=== PATIENT | male | born 1940 | race Caucasian/White ===

== ENCOUNTER 2017-12-07 02:09 | Inpatient (IN) | payer MEDICARE, BC ==
[2017-12-07] MEDS ORDERED: IBUPROFEN 600 MG TAB PO STA (02:17)
--- NOTE | 2017-12-07 02:30 | ED ---
General Adult HPI - General Stated complaint: Neuro Deficits Time Seen by Provider: 12/07/17 02:10 Source: RN notes reviewed - History of Present Illness Initial comments: This is a 76-year-old male presents emergency Department as a transfer from [facility]. She was sent to us because he came in with some slurred speech which started earlier in the day but it resolved while he was in the emergency department and they were concerned that he had a TIA and wanted him to be seen by a neurologist. He also had a fever for 100.7 there and they could not find source of his fever he had no complaints of a cough he denies any chest pain or palpitations. Patient denies any shortness of breath. Patient denies any abdominal pain patient denies nausea vomiting or diarrhea. Patient denies any sore throat. Patient denies headache patient denies numbness weakness. Patient states currently he feels good without complaints at this time. Family is not here to give any other history patient is able to answer all questions appropriately. Patient states she has had a previous stroke and he has some right sided residual weakness in the arm and leg - Related Data Home Medications Medication Instructions Recorded Confirmed Aspirin 325 mg PO DAILY 12/07/17 12/07/17 Celecoxib [CeleBREX] 200 mg PO DAILY 12/07/17 12/07/17 Cyanocobalamin [Vitamin B-12] 500 mcg PO DAILY 12/07/17 12/07/17 Folic Acid 0.4 mg PO DAILY 12/07/17 12/07/17 Glimepiride [Amaryl] 4 mg PO AC-BRKFST 12/07/17 12/07/17 Levothyroxine Sodium [Synthroid] 150 mcg PO DAILY 12/07/17 12/07/17 Multivitamin [Men's Multi-Vitamin] 1 each PO DAILY 12/07/17 12/07/17 Rutin/Quercetin/Bioflav/Bilber 1 each PO DAILY 12/07/17 12/07/17 [Bilberry Extract] metFORMIN HCL [Glucophage] 500 mg PO TID 12/07/17 12/07/17 traMADol HCL [Ultram] 50 mg PO Q6HR PRN 12/07/17 12/07/17 Allergies Allergy/AdvReac Type Severity Reaction Status Date / Time codeine Allergy Unknown Verified 12/07/17 02:19 Review of Systems ROS Statement: Those systems with pertinent positive or pertinent negative responses have been documented in the HPI. ROS Other: All systems not noted in ROS Statement are negative. General Exam - General Exam Comments Initial Comments: GENERAL: Patient is well-developed and well-nourished. Patient is nontoxic and well- hydrated and is in no acute distress. ENT: Neck is soft and supple. No significant lymphadenopathy is noted. Oropharynx is clear. Moist mucous membranes. Neck has full range of motion without eliciting any pain. EYES: The sclera were anicteric and conjunctiva were pink and moist. Extraocular movements were intact and pupils were equal round and reactive to light. Eyelids were unremarkable. PULMONARY: Unlabored respirations. Good breath sounds bilaterally. No audible rales rhonchi or wheezing was noted. CARDIOVASCULAR: There is a regular rate and rhythm without any murmurs gallops or rubs. ABDOMEN: Soft and nontender with normal bowel sounds. No palpable organomegaly was noted. There is no palpable pulsatile mass. SKIN: Skin is clear with no lesions or rashes and otherwise unremarkable. NEUROLOGIC: Patient is alert and oriented x3. Cranial nerves II through XII are grossly intact. Motor and sensory are also intact. Normal speech, volume and content. Symmetrical smile. . MUSCULOSKELETAL: Normal extremities with adequate strength and full range of motion. LYMPHATICS: No significant lymphadenopathy is noted PSYCHIATRIC: Normal psychiatric evaluation. Normal interpersonal interactions appears functionally intact in deals appropriately with others. No signs of depression. No signs of anxiety. Course Vital Signs 12/07/17 02:17 Temperature 98.8 F Pulse Rate 109 H Respiratory 20 Rate Blood Pressure 152/82 O2 Sat by Pulse 96 Oximetry Medical Decision Making - Medical Decision Making EKG shows sinus tachycardia at 108 bpm AK interval 266 dresses 92 QT interval 344 QTC is 460. Patient's EKG shows no ST segment elevation or depression or T wave abnormalities are noted. Influenza came back negative. Patient remained asymptomatic. I admitted the patient for TIA and spoke with Dr. Ramirez he agreed to admit the patient I wrote admitting orders I consult the neurology - Lab Data Lab Results 12/07/17 Range/Units 02:15 Influenza Type A RNA Not Detected (Not Detectd) Influenza Type B (PCR) Not Detected (Not Detectd) Disposition Clinical Impression: TIA (transient ischemic attack), Febrile illness Disposition: ADMITTED IP TO THIS HOSP Referrals: Julia Brasher DO [Primary Care Provider] - 1-2 days Time of Disposition: 03:12
[2017-12-07] MEDS ORDERED: ASPIRIN 325 MG TAB PO STA (03:13)
[2017-12-07 05:11] VITALS: BMI 26.9
[2017-12-07 05:40] LABS: Glucose,Whole Blood 122 mg/dL (75-99)
--- NOTE | 2017-12-07 11:08 | US ---
EXAMINATION TYPE: US carotid duplex BILAT DATE OF EXAM: 12/07/2017 COMPARISON: NONE CLINICAL HISTORY: Stenosis. EXAM MEASUREMENTS: RIGHT: Peak Systolic Velocity (PSV) cm/sec ----- Right CCA: 98.3 ----- Right ICA: 82.0 ----- Right ECA: 100.9 ICA/CCA ratio: 0.8 RIGHT: End Diastole cm/sec ----- Right CCA: 27.4 ----- Right ICA: 22.6 ----- Right ECA: 16.6 LEFT: Peak Systolic Velocity (PSV) cm/sec ----- Left CCA: 77.5 ----- Left ICA: 109.1 ----- Left ECA: 88.9 ICA/CCA ratio: 1.4 LEFT: End Diastole cm/sec ----- Left CCA: 18.0 ----- Left ICA: 33.5 ----- Left ECA: 13.4 VERTEBRALS (direction of flow): Right Vertebral: Antegrade Left Vertebral: Antegrade Rhythm: Arrhythmia Prominent lymph nodes noted on right. No significant stenosis seen. IMPRESSION: Atheromatous plaquing present bilaterally greater on the left than the right. Significan t flow-limiting stenosis is not present. Criteria for Assigning % of Stenosis / Diameter reduction (Estimation based on the indirect measurements of the internal carotid artery velocities (ICA PSV). 1. Normal (no stenosis)=ICA PSV < 125 cm/s: ratio < 2.0: ICA EDV<40 cm/s. 2. Less than 50% stenosis=ICA PSV < 125 cm/s: ratio < 2.0: ICA EDV<40 cm/s. 3. 50 to 69% stenosis=ICA PSV of 125 to 230 cm/s: ration 2.0 ? 4.0: ICA EDV 40-100 cm/s. 4. Greater than 70% stenosis to near occlusion= ICA PSV > 230 cm/s: ratio > 4.0: ICA EDV > 100 cm/s. 5. Near occlusion= ICA PSV velocities may be low or undetectable: variable ratio and ICA EDV. 6. Total occlusion=unable to detect flow.
[2017-12-07 11:57] LABS: Glucose,Whole Blood 122 mg/dL (75-99)
--- NOTE | 2017-12-07 12:39 | P.CNNES ---
History of Present Illness Consult date: 12/07/17 Reason for Consult: Patient admitted with slurred speech and TIA. History of Present Illness: This patient is a 76-year-old right-handed white male who was in his usual state of health until yesterday. According to his who was at bedside she noted that he was having difficulty getting his words out yesterday evening. Apparently he had some slurring of his speech and just had word finding difficulties. This had started early in the morning according to the with no clear time of onset. According to the the symptoms did seem to worsen as the day went on. Later in the evening he was still having great difficulty getting his words out. also stated that he was having weakness in both of his legs. He does have a history of a old stroke which she suffered 14 years ago. This stroke left him with residual right-sided weakness. He apparently ambulates at home with the use of a cane. According to the yesterday evening at about 8 PM he was unable to stand and ambulate due to bilateral leg weakness. Given his history of old stroke the was concerned and took him to the emergency room at [facility]. He underwent a computed tomography scan of the brain there which was reported to show mild atrophy with no acute intracranial abnormalities. There was evidence of right maxillary sinusitis. The family requested that the patient be transferred to [facility] for further stroke evaluation. The patient has been taking aspirin 325 mg daily on a regular basis since his stroke 14 years ago. His speech has improved since admission to the hospital yesterday evening. We did review the CAT scan report from the outside hospital which again failed to reveal any evidence of acute stroke. The patient was transferred to [facility] he was seen in the ER by Dr. Lincoln this morning. He did have a fever yesterday evening which has subsequently resolved. He was checked for influenza which came back negative. The patient is afebrile this morning. He is examined today in his room with his at bedside. The clearly states that in the morning when he awoke she noticed that he was having the speech problems. The symptoms worsened and finally by 8 PM yesterday they went to the local emergency room at [facility]. The patient follows with his primary care physician Dr. Brasher every 4-6 months. Apparently his last visit went well with no major changes. The patient has been doing better since admission to the hospital and has been able to get up and ambulate without any difficulty with his leg strength. Patient's clinical history suggests possibility of TIA. We have recommended the patient undergo a complete stroke evaluation. His case was discussed at length with the patient and his at bedside. All of their questions were answered. They are aware of his guarded condition. Review of Systems Constitutional: Denies chills, Denies fever Eyes: denies blurred vision, denies pain Ears, nose, mouth and throat: Denies headache, Denies sore throat Cardiovascular: Denies chest pain, Denies shortness of breath Respiratory: Denies cough Gastrointestinal: Denies abdominal pain, Denies diarrhea, Denies nausea, Denies vomiting Musculoskeletal: Denies myalgias Integumentary: Denies pruritus, Denies rash Neurological: Reports aphasia, Reports change in mentation, Reports change in speech, Reports gait dysfunction, Reports motor disturbance, Denies numbness, Denies weakness Psychiatric: Denies anxiety, Denies depression Endocrine: Denies fatigue, Denies weight change Past Medical History Past Medical History: Diabetes Mellitus, Thyroid Disorder Additional Past Medical History / Comment(s): stroke History of Any Multi-Drug Resistant Organisms: None Reported Past Surgical History: Unable to Obtain Past Anesthesia/Blood Transfusion Reactions: No Reported Reaction Past Psychological History: No Psychological Hx Reported Smoking Status: Never smoker Past Alcohol Use History: None Reported Past Drug Use History: None Reported - Past Family History Brother(s) Additional Family Medical History / Comment(s): Parkinson's Medications and Allergies Home Medications Medication Instructions Recorded Confirmed Type Aspirin 325 mg PO DAILY 12/07/17 12/07/17 History Bilberry 1000mg 1,000 mg PO DAILY 12/07/17 12/07/17 History Celecoxib [CeleBREX] 200 mg PO DAILY PRN 12/07/17 12/07/17 History Cyanocobalamin [Vitamin B-12] 500 mcg PO DAILY 12/07/17 12/07/17 History Folic Acid 0.4 mg PO DAILY 12/07/17 12/07/17 History Glimepiride [Amaryl] 4 mg PO AC-BRKFST 12/07/17 12/07/17 History Levothyroxine Sodium [Synthroid] 150 mcg PO DAILY 12/07/17 12/07/17 History Multivitamin [Men's Multi-Vitamin] 1 tab PO DAILY 12/07/17 12/07/17 History Pricklypear 250 mg PO BID 12/07/17 12/07/17 History metFORMIN HCL [Glucophage] 500 mg PO TID 12/07/17 12/07/17 History traMADol HCL [Ultram] 50 mg PO Q6HR PRN 12/07/17 12/07/17 History Allergies Allergy/AdvReac Type Severity Reaction Status Date / Time codeine Allergy Unknown Verified 12/07/17 12:15 Physical Examination - Vital Signs Vital Signs: Vital Signs Temp Pulse Pulse Resp BP BP Pulse Ox 12/07/17 08:14 96.9 F L 97 16 145/72 96 12/07/17 08:00 96.9 F L 97 16 145/75 95 12/07/17 06:14 97 16 147/74 93 L 12/07/17 04:57 97.0 F L 95 14 145/70 98 12/07/17 03:53 98 16 135/72 94 L 12/07/17 02:17 98.8 F 109 H 20 152/82 96 Intake and Output 12/06/17 12/07/17 12/07/17 22:59 06:59 14:59 Intake Total 0 Output Total 300 Balance 0 -300 Intake: Oral 0 Output: Urine 300 Other: # Voids 0 Weight 80.3 kg - Constitutional General appearance: average body habitus, cooperative - EENT EENT: PERRL, mucous membranes moist - Respiratory Respiratory: lungs clear, normal breath sounds - Cardiovascular Cardiovascular: regular rate, normal S1, normal S2 Extremities: no peripheral edema bilaterally - Gastrointestinal Gastrointestinal: normoactive bowel sounds - Integumentary Integumentary: normal - Neurologic Cranial nerve examination: EOMI, V1/V2/V3 grossly intact, face symmetric, tongue midline, intact gag reflex, intact corneal reflex, normal palatal elevation Speech examination: intact Sensorimotor examination: intact Motor examination - right side: 3/5: biceps, triceps, wrist flexion, wrist extension, foreign exchange services manager, 4/5: hip flexors, knee extensors, dorsiflexion, toe extension ( EHL), plantarflexion Motor examination - left side: 4/5: biceps, triceps, wrist flexion, wrist extension, foreign exchange services manager, hip flexors, knee extensors, dorsiflexion, toe extension (EHL) , plantarflexion Detailed sensory examination: intact Reflex and gait examination: intact Reflexes: 1+: ankle, bicep, knee, tricep - Musculoskeletal Musculoskeletal: no pain - Psychiatric Psychiatric: mood/affect appropriate, cooperative Results - Laboratory Findings Abnormal Lab Findings: Abnormal Labs 12/07/17 05:38 POC Glucose (mg/dL) 122 H Assessment and Plan (1) TIA (transient ischemic attack) Current Visit: Yes Status: Acute Code(s): G45.9 - TRANSIENT CEREBRAL ISCHEMIC ATTACK, UNSPECIFIED SNOMED Code(s): 302162391 (2) History of stroke Current Visit: Yes Status: Acute Code(s): Z86.73 - PRSNL HX OF TIA (TIA), AND CEREB INFRC W/O RESID DEFICITS SNOMED Code(s): 943690249 (3) Diabetes mellitus Current Visit: Yes Status: Acute Code(s): E11.9 - TYPE 2 DIABETES MELLITUS WITHOUT COMPLICATIONS SNOMED Code(s): 69388647 (4) Febrile illness Current Visit: Yes Status: Acute Code(s): R50.9 - FEVER, UNSPECIFIED SNOMED Code(s): 572234739 Plan: This patient is a 76-year-old male who yesterday morning awoke with some speech impairment. According to his who provided the medical history he was having word finding difficulties. This persisted throughout the day yesterday morning and by 8 PM he was also having weakness in both of his legs. He was taken to the emergency room at [facility] at about 8 PM. He underwent a computed tomography scan of the brain which revealed mild atrophy with no acute intracranial abnormalities detected. Patient was transferred to [facility] this morning for further stroke evaluation. Patient has a history of having suffered a stroke 14 years ago. He has been left with residual right-sided hemiparesis. Yesterday evening the states he was very weak in both of his legs and could not ambulate. Those symptoms have subsequently resolved and he is doing much better today. We have recommended that he undergo a complete stroke evaluation. We will obtain an MRI of the brain for further assessment. We will obtain a carotid ultrasound as well. We are waiting further assessment from speech therapy regarding this recent episode as well. We will also obtain PT/ OT evaluation. He should be maintained on aspirin daily for secondary stroke prevention. He is afebrile today and has no evidence of ongoing underlying sepsis at this time. Case was discussed at length with the patient and his at bedside. All of their questions were answered. The is aware of his guarded condition. We will continue close neurological follow-up of this patient during this admission. Time with Patient: Greater than 30
[2017-12-07] MEDS ORDERED: traMADol 50 MG TAB PO PRN (12:54)
[2017-12-07] MEDS ORDERED: ONDANSETRON 4 MG/2 ML VIAL IVP PRN (12:55)
[2017-12-07] MEDS ORDERED: metFORMIN 500 MG TAB PO SCH (13:00)
--- NOTE | 2017-12-07 13:47 | P.HPIM ---
History of Present Illness H&P Date: 12/07/17 Chief Complaint: Slurred speech This is a 76-year-old gentleman with past medical history noted below significant for prior stroke who presented to an outside emergency room with generalized weakness and slurred speech. Apparently his symptoms started all of a sudden. He went to [facility] where he underwent a computed tomography scan of the brain showing no acute findings or evidence of acute stroke. Patient was started on aspirin and was transferred to our hospital for further evaluation. Apparently his symptoms lasted for approximately 8 hours and resolved upon transfer to our hospital. He is back to his normal self right now. He was seen and evaluated by neurology. They scheduled for an MRI of the brain later today. Review of Systems Review of system: 14 points review of systems were obtained and were negative except to what were mentioned in the HPI. Past Medical History Past Medical History: Diabetes Mellitus, Thyroid Disorder Additional Past Medical History / Comment(s): stroke History of Any Multi-Drug Resistant Organisms: None Reported Past Surgical History: Unable to Obtain Past Anesthesia/Blood Transfusion Reactions: No Reported Reaction Past Psychological History: No Psychological Hx Reported Smoking Status: Never smoker Past Alcohol Use History: None Reported Past Drug Use History: None Reported - Past Family History Brother(s) Additional Family Medical History / Comment(s): Parkinson's Medications and Allergies Home Medications Medication Instructions Recorded Confirmed Type Aspirin 325 mg PO DAILY 12/07/17 12/07/17 History Bilberry 1000mg 1,000 mg PO DAILY 12/07/17 12/07/17 History Celecoxib [CeleBREX] 200 mg PO DAILY PRN 12/07/17 12/07/17 History Cyanocobalamin [Vitamin B-12] 500 mcg PO DAILY 12/07/17 12/07/17 History Folic Acid 0.4 mg PO DAILY 12/07/17 12/07/17 History Glimepiride [Amaryl] 4 mg PO AC-BRKFST 12/07/17 12/07/17 History Levothyroxine Sodium [Synthroid] 150 mcg PO DAILY 12/07/17 12/07/17 History Multivitamin [Men's Multi-Vitamin] 1 tab PO DAILY 12/07/17 12/07/17 History Pricklypear 250 mg PO BID 12/07/17 12/07/17 History metFORMIN HCL [Glucophage] 500 mg PO TID 12/07/17 12/07/17 History traMADol HCL [Ultram] 50 mg PO Q6HR PRN 12/07/17 12/07/17 History Allergies Allergy/AdvReac Type Severity Reaction Status Date / Time codeine Allergy Unknown Verified 12/07/17 12:15 Physical Exam Vitals: Vital Signs Temp Pulse Pulse Resp BP BP Pulse Ox 12/07/17 10:14 96.9 F L 97 16 146/76 96 12/07/17 08:14 96.9 F L 97 16 145/72 96 12/07/17 08:00 96.9 F L 97 16 145/75 95 12/07/17 06:14 97 16 147/74 93 L 12/07/17 04:57 97.0 F L 95 14 145/70 98 12/07/17 03:53 98 16 135/72 94 L 12/07/17 02:17 98.8 F 109 H 20 152/82 96 Intake and Output 12/06/17 12/07/17 12/07/17 22:59 06:59 14:59 Intake Total 0 Output Total 300 Balance 0 -300 Intake: Oral 0 Output: Urine 300 Other: # Voids 0 Weight 80.3 kg General: The patient is awake and alert, in no distress Eye: there is normal conjunctiva bilaterally. Neck: The neck is supple, there is no JVD. Cardiovascular: Normal S1-S2, no S3-S4, no murmurs. Respiratory: Lungs clear to auscultation bilaterally Gastrointestinal: Abdomen is soft, nontender Musculoskeletal: There is no pedal edema. Neurological:. Speech is normal. Skin: Skin is warm and dry Results Labs: Abnormal Lab Results - Last 24 Hours (Table) 12/07/17 12/07/17 Range/Units 05:38 11:49 POC Glucose (mg/dL) 122 H 122 H (75-99) mg/dL Thrombosis Risk Factor Assmnt - Choose All That Apply Any of the Below Risk Factors Present?: Yes Other Risk Factors: Yes Each Risk Factor Represents 3 Points: Age 75 years or older Thrombosis Risk Factor Assessment Total Risk Factor Score: 3 Thrombosis Risk Factor Assessment Level: Moderate Risk Assessment and Plan Assessment: 1. TIA with transient episode of slurred speech: Computed tomography scan of the brain at the outside facility showed no acute findings. Patient is scheduled for MRI today. Carotid Doppler showed no significant hemodynamic stenosis. Echocardiogram of the heart ordered. 2. History of prior stroke with residual right-sided weakness, maintained on full dose aspirin daily 3. Type 2 diabetes mellitus: I would check A1c 4. Hypothyroidism maintained on levothyroxine Today, I reviewed his medication list and lab work results. Continue current regimen. PT/OT/speech pathology consultation. Appreciate neurology recommendations. at bedside. Patient was updated about his current condition.
[2017-12-07 16:59] LABS: Glucose,Whole Blood 211 mg/dL (75-99)
--- NOTE | 2017-12-07 17:54 | MR ---
EXAMINATION TYPE: MR brain wo con DATE OF EXAM: 12/07/2017 COMPARISON: NONE HISTORY: Patient with Left Hemipsheric TIA and jonelle leg weak CONTRAST: Performed utilizing 0 mL intravenous Gadavist gadolinium contrast. TECHNIQUE: Multiplanar, multiecho imaging on a 3.0 Tori magnet is performed through the brain. Stud y is performed within 24 hours of arrival to this hospital. The craniovertebral junction is normal. The pituitary is normal. Diffusion-weighted imaging is performed. No abnormal hyperintensity is present to suggest an acute i ntracranial infarct or acute ischemic change. Ventricles and sulci are prominent for the patient age. Left vertebral artery is dominant. There are normal vascular flow voids within the visualized intracr anial cerebral vasculature. There are some scattered periventricular and subcortical white matter aide nges. Some white matter changes also present within the brainstem. Findings are nonspecific but could be related to microvascular ischemic changes. Acute changes are not identified. IMPRESSIONS: 1. Age-related atrophy with chronic appearing white matter ischemic changes.
[2017-12-07] MEDS: metFORMIN 500 MG TAB PO SCH (20:37)
[2017-12-07] MEDS: HEPARIN SODIUM,PORCINE 5,000 UNIT/ML 1 ML VIAL SQ SCH (20:37)
[2017-12-07 20:55] LABS: Glucose,Whole Blood 214 mg/dL (75-99)
[2017-12-08] MEDS: ASPIRIN 325 MG TAB PO SCH ×2 (06:06→09:09)
[2017-12-08] MEDS: metFORMIN 500 MG TAB PO SCH ×3 (06:06→19:24)
[2017-12-08] MEDS: GLIMEPIRIDE 4 MG TAB PO SCH (06:06)
[2017-12-08 06:18] LABS: Glucose,Whole Blood 129 mg/dL (75-99)
[2017-12-08 06:25] LABS: Basophils # (A) 0.1 k/uL (0-0.2); Basophils % (A) 1 %; Eosinophils # (A) 0.2 k/uL (0-0.7); Eosinophils % (A) 2 %; HCT 44.4 % (39.0-53.0); HGB 14.3 gm/dL (13.0-17.5); Lymphocytes # (A) 2.2 k/uL (1.0-4.8); Lymphocytes % (A) 19 %; MCH 29.2 pg (25.0-35.0); MCHC 32.3 g/dL (31.0-37.0); MCV 90.6 fL (80.0-100.0); Mean Platelet Volume 7.2; Monocytes % (A) 9 %; Neutrophils % (A) 68 %; Platelet Count 279 k/uL (150-450); RDW 12.6 % (11.5-15.5); WBC 11.8 k/uL (3.8-10.6)
[2017-12-08] MEDS ORDERED: LEVOTHYROXINE 75 MCG TAB PO SCH (06:30)
[2017-12-08 06:38] LABS: ALT 39 U/L (21-72); AST 32 U/L (17-59); Albumin 3.7 g/dL (3.5-5.0); Alkaline Phosphatase 76 U/L (38-126); Anion Gap 12 mmol/L; Blood Urea Nitrogen 15 mg/dL (9-20); Calcium 9.3 mg/dL (8.4-10.2); Carbon Dioxide 25 mmol/L (22-30); Chloride 102 mmol/L (98-107); Cholesterol 126 mg/dL (<200); Glucose 131 mg/dL (74-99); HDL Cholesterol 36 mg/dL (40-60); LDL Cholesterol,Calculated 73 mg/dL (0-99); Potassium 4.1 mmol/L (3.5-5.1); Sodium 139 mmol/L (137-145); Total Bilirubin 1.8 mg/dL (0.2-1.3); Total Protein 6.6 g/dL (6.3-8.2); Triglycerides 83 mg/dL (<150)
[2017-12-08 07:41] LABS: T4, Free (Free Thyroxine) 2.53 ng/dL (0.78-2.19)
[2017-12-08] MEDS: HEPARIN SODIUM,PORCINE 5,000 UNIT/ML 1 ML VIAL SQ SCH ×2 (09:09→20:58)
[2017-12-08 11:15] LABS: Appearance,Urine Clear (Clear); Bilirubin,Urine Negative (Negative); Blood,Urine Negative (Negative); Color,Urine Yellow; Glucose,Urine (UA) Negative (Negative); Ketones,Urine 1+ (Negative); Leukocyte Esterase,Urine Negative (Negative); PH, Urine 5.5 (5.0-8.0); Protein,Urine Trace (Negative)
[2017-12-08 11:31] LABS: Glucose,Whole Blood 113 mg/dL (75-99)
[2017-12-08] MEDS: FOLIC ACID 1 MG TAB PO SCH (12:24)
--- NOTE | 2017-12-08 13:38 | P.PN ---
Subjective Well today. He is complaining of urinary frequency. Urinalysis was unremarkable. Objective - Vital Signs Vital signs: Vital Signs Temp 97.6 F 12/08/17 12:00 Pulse 96 12/08/17 12:00 Resp 16 12/08/17 12:00 BP 129/69 12/08/17 12:00 Pulse Ox 97 12/08/17 12:00 Intake & Output 12/07/17 12/08/17 12/08/17 18:59 06:59 18:59 Intake Total 480 200 Output Total 300 500 600 Balance 180 -500 -400 Weight 74 kg Intake: Oral 480 200 Output: Urine 300 500 600 Other: # Voids 2 2 # Bowel Movements 2 - Exam General: The patient is awake and alert, in no distress Eye: there is normal conjunctiva bilaterally. Neck: The neck is supple, there is no JVD. Cardiovascular: Normal S1-S2, no S3-S4, no murmurs. Respiratory: Lungs clear to auscultation bilaterally Gastrointestinal: Abdomen is soft, nontender Musculoskeletal: There is no pedal edema. Neurological:. Speech is normal. Skin: Skin is warm and dry - Labs CBC & Chem 7: 12/08/17 05:59 12/08/17 05:59 Labs: Abnormal Lab Results - Last 24 Hours (Table) 12/07/17 12/07/17 12/08/17 Range/Units 16:51 20:54 05:59 WBC (3.8-10.6) k/uL Neutrophils # (1.3-7.7) k/uL Glucose 131 H (74-99) mg/dL POC Glucose (mg/dL) 211 H 214 H (75-99) mg/dL Total Bilirubin 1.8 H (0.2-1.3) mg/dL HDL Cholesterol 36 L (40-60) mg/dL TSH <0.015 L (0.465-4.680) mIU/L Free T4 2.53 H (0.78-2.19) ng/dL Urine Protein (Negative) Urine Ketones (Negative) 12/08/17 12/08/17 12/08/17 Range/Units 05:59 06:15 11:00 WBC 11.8 H (3.8-10.6) k/uL Neutrophils # 8.0 H (1.3-7.7) k/uL Glucose (74-99) mg/dL POC Glucose (mg/dL) 129 H (75-99) mg/dL Total Bilirubin (0.2-1.3) mg/dL HDL Cholesterol (40-60) mg/dL TSH (0.465-4.680) mIU/L Free T4 (0.78-2.19) ng/dL Urine Protein Trace H (Negative) Urine Ketones 1+ H (Negative) 12/08/17 Range/Units 11:29 WBC (3.8-10.6) k/uL Neutrophils # (1.3-7.7) k/uL Glucose (74-99) mg/dL POC Glucose (mg/dL) 113 H (75-99) mg/dL Total Bilirubin (0.2-1.3) mg/dL HDL Cholesterol (40-60) mg/dL TSH (0.465-4.680) mIU/L Free T4 (0.78-2.19) ng/dL Urine Protein (Negative) Urine Ketones (Negative) Assessment and Plan Assessment: 1. TIA with transient episode of slurred speech: MRI of the brain showed age- related atrophy with no acute findings. Computed tomography scan of the brain at the outside facility showed no acute findings. Carotid Doppler showed no significant hemodynamic stenosis. Echocardiogram of the heart ordered And pending 2. History of prior stroke with residual right-sided weakness, maintained on full dose aspirin daily 3. Type 2 diabetes mellitus: I would check A1c 4. Hypothyroidism maintained on levothyroxine. TSH level was significantly depressed. I will lower the dose to 112 g Today, I reviewed his medication list and lab work results. Continue current regimen. PT/OT/speech pathology consultation. Appreciate neurology recommendations. at bedside. Patient was updated about his current condition. Patient with urinary frequency. UA unremarkable. We'll check postvoid residual.
--- NOTE | 2017-12-08 15:40 | P.PN ---
Subjective Progress Note Date: 12/08/17 This patient is a 76-year-old male who was admitted to Hospital with symptoms of word finding difficulties and slurred speech. He has a history of having suffered a stroke in the past. He was admitted to hospital for a complete stroke evaluation. Patient was able to complete MRI of the brain yesterday which was reviewed and reveals only age-related atrophy and chronic-appearing white matter ischemic changes. There was no evidence of acute stroke. Diffusion-weighted imaging was negative. We reviewed the results of the MRI today with the patient. He has had no further episodes of speech impairment since admission to the hospital. He is currently taking is aspirin daily for secondary stroke prevention. Patient has undergone carotid Doppler ultrasound which revealed no significant hemodynamic stenosis. Echocardiogram of the heart is pending. Patient is had no focal weakness. As mentioned his speech is remained very clear since admission to the hospital. We did once again review the results of the MRI with the patient and his who is at bedside. We're waiting for his echocardiogram study to be completed. Neurologically he remains very much intact. 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 Once again we did review the MRI results in detail with the patient and his today at bedside. Hopefully the patient may be considered for discharge home tomorrow. We will continue close neurological follow-up for the patient during this admission. Objective - Vital Signs Vital signs: Vital Signs Temp 97.6 F 12/08/17 12:00 Pulse 96 12/08/17 12:00 Resp 16 12/08/17 12:00 BP 129/69 12/08/17 12:00 Pulse Ox 97 12/08/17 12:00 Intake & Output 12/07/17 12/08/17 12/08/17 18:59 06:59 18:59 Intake Total 480 400 Output Total 300 500 600 Balance 180 -500 -200 Weight 74 kg Intake: Oral 480 400 Output: Urine 300 500 600 Other: # Voids 2 2 # Bowel Movements 2 - Exam Physical examination: PHYSICAL EXAMINATION: Patient is resting comfortably in bed. VITAL SIGNS: Blood pressure is [129/69]. Heart rate is [95]. Respiration is [16] . Temperature is [97.7]. HEENT: Head is atraumatic, neck is supple, there were no carotid bruits. CHEST: Lungs are clear to auscultation and percussion. CARDIAC: S1, S2 normal rate and rhythm. There is no murmur. ABDOMEN: Soft and nontender. Bowel sounds are present. EXTREMITIES: There is no pedal edema. Peripheral pulses are present. Neurological examination: Patient has a nonfocal neurological examination today. Neurological exam reveals old right-sided hemiparesis. - Labs CBC & Chem 7: 12/08/17 05:59 12/08/17 05:59 Labs: Abnormal Lab Results - Last 24 Hours (Table) 12/07/17 12/07/17 12/08/17 Range/Units 16:51 20:54 05:59 WBC (3.8-10.6) k/uL Neutrophils # (1.3-7.7) k/uL Glucose 131 H (74-99) mg/dL POC Glucose (mg/dL) 211 H 214 H (75-99) mg/dL Total Bilirubin 1.8 H (0.2-1.3) mg/dL HDL Cholesterol 36 L (40-60) mg/dL TSH <0.015 L (0.465-4.680) mIU/L Free T4 2.53 H (0.78-2.19) ng/dL Urine Protein (Negative) Urine Ketones (Negative) 12/08/17 12/08/17 12/08/17 Range/Units 05:59 06:15 11:00 WBC 11.8 H (3.8-10.6) k/uL Neutrophils # 8.0 H (1.3-7.7) k/uL Glucose (74-99) mg/dL POC Glucose (mg/dL) 129 H (75-99) mg/dL Total Bilirubin (0.2-1.3) mg/dL HDL Cholesterol (40-60) mg/dL TSH (0.465-4.680) mIU/L Free T4 (0.78-2.19) ng/dL Urine Protein Trace H (Negative) Urine Ketones 1+ H (Negative) 12/08/17 Range/Units 11:29 WBC (3.8-10.6) k/uL Neutrophils # (1.3-7.7) k/uL Glucose (74-99) mg/dL POC Glucose (mg/dL) 113 H (75-99) mg/dL Total Bilirubin (0.2-1.3) mg/dL HDL Cholesterol (40-60) mg/dL TSH (0.465-4.680) mIU/L Free T4 (0.78-2.19) ng/dL Urine Protein (Negative) Urine Ketones (Negative) Assessment and Plan (1) TIA (transient ischemic attack) Current Visit: Yes Status: Acute Code(s): G45.9 - TRANSIENT CEREBRAL ISCHEMIC ATTACK, UNSPECIFIED SNOMED Code(s): 674086971 (2) History of stroke Current Visit: Yes Status: Acute Code(s): Z86.73 - PRSNL HX OF TIA (TIA), AND CEREB INFRC W/O RESID DEFICITS SNOMED Code(s): 802726655 (3) Diabetes mellitus Current Visit: Yes Status: Acute Code(s): E11.9 - TYPE 2 DIABETES MELLITUS WITHOUT COMPLICATIONS SNOMED Code(s): 36867909 (4) Febrile illness Current Visit: Yes Status: Acute Code(s): R50.9 - FEVER, UNSPECIFIED SNOMED Code(s): 989988661 Plan: This patient is a 76-year-old male who is being evaluated for recent episode of slurred speech and TIA. Patient underwent MRI of the brain and the results which are noted above. We discussed the results today with the patient and his in detail. There is no evidence of any acute stroke. Carotid Doppler study failed to reveal any significant carotid artery stenosis. Echocardiogram of the heart is pending today. Hopefully this may be completed tomorrow at which time he may be considered for discharge home. He does have evidence of old right-sided hemiparesis from previous stroke. He is to continue on aspirin daily for secondary stroke prevention. We will continue close neurological follow-up for the patient. Depending on his echocardiogram results he may be considered for discharge home tomorrow. We will continue close neurological follow-up of this patient during this admission.
[2017-12-08 16:16] LABS: Glucose,Whole Blood 110 mg/dL (75-99)
[2017-12-08 17:56] LABS: Hemoglobin A1C 6.6 % (4.0-6.0)
[2017-12-08 21:14] LABS: Glucose,Whole Blood 125 mg/dL (75-99)
[2017-12-09 05:23] VITALS: RESP 16
[2017-12-09 05:55] LABS: Glucose,Whole Blood 97 mg/dL (75-99)
[2017-12-09] MEDS: GLIMEPIRIDE 4 MG TAB PO SCH (06:21)
[2017-12-09] MEDS: metFORMIN 500 MG TAB PO SCH ×2 (06:21→12:26)
[2017-12-09] MEDS ORDERED: LEVOTHYROXINE 112 MCG TAB PO SCH (06:30)
[2017-12-09 06:31] LABS: Basophils # (A) 0.1 k/uL (0-0.2); Basophils % (A) 1 %; Eosinophils # (A) 0.6 k/uL (0-0.7); Eosinophils % (A) 5 %; HGB 14.8 gm/dL (13.0-17.5); Lymphocytes # (A) 2.5 k/uL (1.0-4.8); Lymphocytes % (A) 22 %; MCHC 32.9 g/dL (31.0-37.0); Monocytes # (A) 0.8 k/uL (0-1.0); Monocytes % (A) 8 %; Neutrophils # (A) 6.9 k/uL (1.3-7.7); Neutrophils % (A) 62 %; Platelet Count 308 k/uL (150-450); RBC 4.95 m/uL (4.30-5.90); RDW 12.6 % (11.5-15.5); WBC 11.2 k/uL (3.8-10.6)
[2017-12-09 06:47] LABS: ALT 43 U/L (21-72); AST 36 U/L (17-59); Albumin 3.6 g/dL (3.5-5.0); Alkaline Phosphatase 83 U/L (38-126); Anion Gap 12 mmol/L; Blood Urea Nitrogen 18 mg/dL (9-20); Calcium 9.6 mg/dL (8.4-10.2); Carbon Dioxide 25 mmol/L (22-30); Chloride 102 mmol/L (98-107); Glucose 107 mg/dL (74-99); Potassium 4.4 mmol/L (3.5-5.1); Sodium 139 mmol/L (137-145); Total Bilirubin 1.4 mg/dL (0.2-1.3); Total Protein 6.5 g/dL (6.3-8.2)
[2017-12-09] MEDS: HEPARIN SODIUM,PORCINE 5,000 UNIT/ML 1 ML VIAL SQ SCH (08:09)
[2017-12-09] MEDS: ASPIRIN 325 MG TAB PO SCH (08:09)
[2017-12-09 11:36] LABS: Glucose,Whole Blood 155 mg/dL (75-99)
[2017-12-09] MEDS: FOLIC ACID 1 MG TAB PO SCH (12:26)
[2017-12-09] MEDS ORDERED: NYSTATIN 100,000 UNIT/ML SUSP 500,000 UNIT/5 ML CUP PO SCH (13:00)
--- NOTE | 2017-12-09 14:17 | P.DS ---
Providers Date of admission: 12/07/17 03:14 Expected date of discharge: 12/09/17 Attending physician: David Ramirez Consults: 12/07/17 03:15 Consult Physician Routine Consulting Provider: Harjinder Silva Consult Reason/Comments: TIA Do you want consulting provider notified?: Yes Primary care physician: [facility] Course: Discharge diagnosis 1. TIA with transient episode of slurred speech: MRI of the brain showed age- related atrophy with no acute findings. Computed tomography scan of the brain at the outside facility showed no acute findings. Carotid Doppler showed no significant hemodynamic stenosis. Echocardiogram of the heart ordered And pending 2. History of prior stroke with residual right-sided weakness, maintained on full dose aspirin daily 3. Type 2 diabetes mellitus: A1c 6.6 4. Hypothyroidism maintained on levothyroxine. TSH level was significantly depressed. Synthroid dose was lowered to 112 g daily. 5. Oral thrush likely contributing to patient's leukocytosis which is improving. Continue nystatin swish and swallow Hospital course This is a 76-year-old gentleman with past medical history noted below significant for prior stroke who presented to an outside emergency room with generalized weakness and slurred speech. Apparently his symptoms started all of a sudden. He went to [facility] where he underwent a computed tomography scan of the brain showing no acute findings or evidence of acute stroke. Patient was started on aspirin and was transferred to our hospital for further evaluation. Apparently his symptoms lasted for approximately 8 hours and resolved upon transfer to our hospital. He is back to his normal self right now. He was seen and evaluated by neurology. They scheduled for an MRI of the brain later today. Patient's symptoms resolved after about 8 hours. Speech is normal. He is able to swallow without difficulty. His stroke workup was negative. As stated above patient had an MRI of the brain and computed tomography scan of brain no evidence stroke. Carotid Doppler showed no significant hemodynamic stenosis. Echo results are still pending. Patient is very eager for discharge home. The plan is to discharge patient home. We will follow up on echo results tomorrow and call patient and his with the results. Patient and are agreeable to this. Patient seen by neurology. He is been on a full aspirin daily and will add Lipitor 10 mg at bedtime. Cholesterol panel is 126 LDL 73 and HDL 36 Patient's symptoms have improved he is medically stable for discharge. We'll follow-up with echo results tomorrow Patient will follow-up with neurology and PCP as scheduled I performed an examination of the patient and discussed their management with the physician Textile Science Technician. I have reviewed the Physician Textile Science Technician's notes and agree with the documented findings and plan of care Patient Condition at Discharge: Stable Plan - Discharge Summary Discharge Rx Participant: No New Discharge Prescriptions: New Atorvastatin Calcium [Lipitor] 10 mg PO HS #30 tab Nystatin 100,000 Unit/ml Susp [Mycostatin Oral Susp] 500,000 unit PO QID # 140 ml Continue traMADol HCL [Ultram] 50 mg PO Q6HR PRN PRN Reason: Pain Celecoxib [CeleBREX] 200 mg PO DAILY PRN PRN Reason: Pain Multivitamin [Men's Multi-Vitamin] 1 tab PO DAILY Levothyroxine Sodium [Synthroid] 150 mcg PO DAILY Folic Acid 0.4 mg PO DAILY Cyanocobalamin [Vitamin B-12] 500 mcg PO DAILY metFORMIN HCL [Glucophage] 500 mg PO TID Glimepiride [Amaryl] 4 mg PO AC-BRKFST [place] 250 mg PO BID Bilberry 1000mg 1,000 mg PO DAILY Aspirin 325 mg PO DAILY #30 tab Discharge Medication List Bilberry 1000mg 1,000 mg PO DAILY 12/07/17 [History] Celecoxib [CeleBREX] 200 mg PO DAILY PRN 12/07/17 [History] Cyanocobalamin [Vitamin B-12] 500 mcg PO DAILY 12/07/17 [History] Folic Acid 0.4 mg PO DAILY 12/07/17 [History] Glimepiride [Amaryl] 4 mg PO AC-BRKFST 12/07/17 [History] Levothyroxine Sodium [Synthroid] 150 mcg PO DAILY 12/07/17 [History] Multivitamin [Men's Multi-Vitamin] 1 tab PO DAILY 12/07/17 [History] Pricklypear 250 mg PO BID 12/07/17 [History] metFORMIN HCL [Glucophage] 500 mg PO TID 12/07/17 [History] traMADol HCL [Ultram] 50 mg PO Q6HR PRN 12/07/17 [History] Aspirin 325 mg PO DAILY #30 tab 12/09/17 [Rx] Atorvastatin Calcium [Lipitor] 10 mg PO HS #30 tab 12/09/17 [Rx] Nystatin 100,000 Unit/ml Susp [Mycostatin Oral Susp] 500,000 unit PO QID #140 ml 12/09/17 [Rx] Follow up Appointment(s)/Referral(s): Harjinder Silva MD [STAFF PHYSICIAN] - 12/27/17 10:00 am Julia Brasher DO [Primary Care Provider] - 12/12/17 12:45 pm Patient Instructions/Handouts: Transient Ischemic Attack (DC), Heart Healthy Diet (DC) Activity/Diet/Wound Care/Special Instructions: Daily aspirin to continue per neurology recommendations. Diet: cardiac, diabetic Activity: as tolerated Discharge Disposition: HOME SELF-CARE
[2017-12-09 14:39] VITALS: BP 117/78; PULSE 105; TEMP 97.4
--- NOTE | 2017-12-09 19:13 | ECHOF ---
Referral Reason:TIA MEASUREMENTS -------- HEIGHT: 172.7 cm WEIGHT: 74.4 kg BP: 133/65 RVIDd: 3.3 cm (< 3.3) IVSd: 1.1 cm (0.6 - 1.1) LVIDd: 4.4 cm (3.9 - 5.3) LVPWd: 1.1 cm (0.6 - 1.1) IVSs: 1.7 cm LVIDs: 2.7 cm LVPWs: 1.5 cm LA Diam: 2.9 cm (2.7 - 3.8) LAESV Index (A-L): 19.76 ml/m Ao Diam: 2.9 cm (2.0 - 3.7) AV Cusp: 2.2 cm (1.5 - 2.6) MV EXCURSION: 15.488 mm (> 18.000) MV EF SLOPE: 60 mm/s (70 - 150) EPSS: 1.2 cm MV E Rojelio: 0.63 m/s MV DecT: 243 ms MV A Rojelio: 0.93 m/s MV E/A Ratio: 0.68 RAP: 5.00 mmHg RVSP: 37.39 mmHg FINDINGS -------- Sinus rhythm. This was a technically good study. The left ventricular size is normal. There is borderline concentric left ventricular hypertrophy. Overall left ventricular systolic function is low-normal with, an EF between 50 - 55 %. Apical sep jaspreet LV wall motion is hypokinetic. The right ventricle is mildly enlarged. Normal LA size by volume 22+/-6 ml/m2. The right atrium is normal in size. There is mild aortic valve sclerosis. Mild mitral annular calcification present. Mild tricuspid regurgitation present. There is mild pulmonary hypertension. The right ventricular systolic pressure, as measured by Doppler, is 37.39mmHg. There is no pulmonic regurgitation present. The aortic root size is normal. IVC Not well visulized. There is no pericardial effusion. CONCLUSIONS -------- 1. Sinus rhythm. 2. This was a technically good study. 3. The left ventricular size is normal. 4. There is borderline concentric left ventricular hypertrophy. 5. Overall left ventricular systolic function is low-normal with, an EF between 50 - 55 %. 6. Apical septum LV wall motion is hypokinetic. 7. The right ventricle is mildly enlarged. 8. Normal LA size by volume 22+/-6 ml/m2. 9. The right atrium is normal in size. 10. There is mild aortic valve sclerosis. 11. Mild mitral annular calcification present. 12. Mild tricuspid regurgitation present. 13. There is mild pulmonary hypertension. 14. The right ventricular systolic pressure, as measured by Doppler, is 37.39mmHg. 15. There is no pulmonic regurgitation present. 16. The aortic root size is normal. 17. IVC Not well visulized. 18. There is no pericardial effusion. SNAKER: Vianey López RDCS
== END 2017-12-09 15:10 | disposition home or self-care (01) | DRG 69 ==
LOC: EC 02:09 → 6SEL 03:14
PROVIDERS: ADMIT Internal Medicine; ATTEND Internal Medicine
DX: G45.9 Transient cerebral ischemic attack, unspecified (principal); B37.0 Candidal stomatitis; I69.351 Hemiplegia and hemiparesis following cerebral infarction affecting right dominant side; E11.9 Type 2 diabetes mellitus without complications; D72.829 Elevated white blood cell count, unspecified; E03.9 Hypothyroidism, unspecified; J32.0 Chronic maxillary sinusitis; R35.0 Frequency of micturition; R50.9 Fever, unspecified; Z79.82 Long term (current) use of aspirin; Z79.84 Long term (current) use of oral hypoglycemic drugs; Z79.899 Other long term (current) drug therapy; Z88.5 Allergy status to narcotic agent
CPT/HCPCS: 70551; 80053; 80061; 81003; 83036; 83735; 84439; 84443; 85025; 87502; 93005; 93306; 93880; 99285

== ENCOUNTER → 2018-01-02 | Outpatient (CLI) | payer MEDICARE, BC ==
--- NOTE | 2018-02-05 20:33 | EM ---
EVENT MONITOR 30-DAY EVENT MONITOR: DATE OF STUDY: 01/02/2018 The patient was monitored for 4 weeks. The baseline rhythm appeared to be a sinus mechanism. During the 30-day monitoring, the patient did have multiple episodes of paroxysmal atrial tachycardia. There was no evidence of any advanced AV block seen. There was no evidence of any sinus pause or sinus arrest seen. There was no evidence of sustained ventricular rhythm seen as well. CONCLUSION: 1. This is a 4-week event monitor. 2. The baseline rhythm appeared to be a sinus mechanism. 3. The patient did have multiple episodes of paroxysmal atrial tachycardia. 4. No evidence of any sinus pause or sinus arrest. 5. There was no evidence of any advanced AV block seen. MMODL / IJN: [id number] /
== END | disposition home or self-care (01) ==
LOC: RADECHMAIN 11:47
PROVIDERS: ATTEND Family Medicine
DX: I47.1 Supraventricular tachycardia (principal); R41.0 Disorientation, unspecified; G45.9 Transient cerebral ischemic attack, unspecified; I69.351 Hemiplegia and hemiparesis following cerebral infarction affecting right dominant side
CPT/HCPCS: 93270; 93271

== ENCOUNTER 2022-10-06 08:52 | Observation (INO) | payer MEDICARE, BC ==
[2022-10-06 10:04] LABS: Basophils # (A) 0.1 k/uL (0-0.2); Basophils % (A) 1 %; Eosinophils # (A) 0.3 k/uL (0-0.7); Eosinophils % (A) 3 %; HCT 41.6 % (39.0-53.0); HGB 14.1 gm/dL (13.0-17.5); Lymphocytes # (A) 1.9 k/uL (1.0-4.8); Lymphocytes % (A) 18 %; MCH 31.5 pg (25.0-35.0); MCHC 33.9 g/dL (31.0-37.0); MCV 92.8 fL (80.0-100.0); Monocytes # (A) 0.7 k/uL (0-1.0); Monocytes % (A) 7 %; Neutrophils # (A) 7.2 k/uL (1.3-7.7); Neutrophils % (A) 69 %; Platelet Count 301 k/uL (150-450); RBC 4.49 m/uL (4.30-5.90); WBC 10.3 k/uL (3.8-10.6)
--- NOTE | 2022-10-06 10:10 | XR ---
EXAMINATION TYPE: XR chest 2V DATE OF EXAM: 10/06/2022 9:56 AM COMPARISON: None TECHNIQUE: XR chest 2V Frontal and lateral views of the chest. CLINICAL INDICATION:Male, 81 years old with history of difficulty breathing; FINDINGS: Lungs/Pleura: There is a nodular density in the left lung base only seen on lateral. There is no evid ence of pleural effusion, focal consolidation, or pneumothorax. Pulmonary vascularity: Unremarkable. Heart/mediastinum: Cardiomediastinal silhouette is enlarged and stable. Musculoskeletal: No acute osseous pathology. IMPRESSION: Lower lung opacity seen on lateral only could represent pulmonary nodule consider further evaluation.
[2022-10-06 10:15] LABS: ALT 43 U/L (4-49); AST 45 U/L (17-59); African American GFR (CKD) >90 (>60 ml/min/1.73 sqM); Albumin 3.9 g/dL (3.5-5.0); Alkaline Phosphatase 70 U/L (38-126); Anion Gap 6 mmol/L; Blood Urea Nitrogen 19 mg/dL (9-20); Calcium 8.8 mg/dL (8.4-10.2); Carbon Dioxide 27 mmol/L (22-30); Chloride 108 mmol/L (98-107); Glucose 124 mg/dL (74-99); Non-African American GFR(CKD) >90 (>60 ml/min/1.73 sqM); Potassium 4.5 mmol/L (3.5-5.1); Sodium 141 mmol/L (137-145); Total Bilirubin 1.1 mg/dL (0.2-1.3); Total Protein 6.4 g/dL (6.3-8.2)
[2022-10-06 10:29] LABS: Partial Thromboplastin Time 23.6 sec (22.0-30.0); Prothrombin Time 10.9 sec (9.0-12.0)
--- NOTE | 2022-10-06 11:24 | ED ---
General Adult HPI - General Chief complaint: Shortness of Breath Stated complaint: sob Time Seen by Provider: 10/06/22 09:00 Source: patient, EMS Mode of arrival: EMS Limitations: no limitations - History of Present Illness Initial comments: 81-year-old male who resides at [facility] who presents to the emergency department reporting shortness of breath. He states that he began having chest pain 2 days ago. Feels as if he has a pressure sensation in his heart is racing. There is associated shortness of breath. He went into [facility] where laboratory studies were completed. He was discharged home from the hospital and was told to follow up with his tire bagger, Dr. Buckley. He does have an appointment coming up on Saturday. States that earlier today he began having the same chest pain. It lasted approximately 30 minutes before it resolved on its own. Patient arrives symptom-free here. He denies fevers, chills or cough. He does have a history of coronary artery disease. Had 4 stents placed last year around this time. Has not had any follow-up since. No other alleviating, Perceptin or modifying factors - Related Data Home Medications Medication Instructions Recorded Confirmed Glimepiride [Amaryl] 4 mg PO AC-BRKFST 12/07/17 10/06/22 Multivitamin [Men's Multi-Vitamin] 1 tab PO AC-BRKFST 12/07/17 10/06/22 metFORMIN HCL [Glucophage] 500 mg PO AC-TID 12/07/17 10/06/22 Atorvastatin [Lipitor] 20 mg PO AC-BRKFST 10/06/22 10/06/22 Calcium Carbonate [Calcium] 600 mg PO AC-BRKFST 10/06/22 10/06/22 Levothyroxine Sodium [Synthroid] 112 mcg PO AC-BRKFST 10/06/22 10/06/22 Prostate Supplement 1 cap PO AC-BRKFST 10/06/22 10/06/22 dilTIAZem HCL [dilTIAZem HCL 24Hr 120 mg PO HS 10/06/22 10/06/22 ER (Xr)] Previous Rx's Medication Instructions Recorded Aspirin 81 mg PO DAILY #90 tab 10/09/22 Clopidogrel [Plavix] 75 mg PO AC-BRKFST #90 tab 10/09/22 Allergies Allergy/AdvReac Type Severity Reaction Status Date / Time codeine Allergy Unknown Verified 10/06/22 12:02 Review of Systems ROS Statement: Those systems with pertinent positive or pertinent negative responses have been documented in the HPI. ROS Other: All systems not noted in ROS Statement are negative. Past Medical History Past Medical History: Diabetes Mellitus, Thyroid Disorder Additional Past Medical History / Comment(s): stroke History of Any Multi-Drug Resistant Organisms: None Reported Past Surgical History: Unable to Obtain Past Anesthesia/Blood Transfusion Reactions: No Reported Reaction Past Psychological History: No Psychological Hx Reported Past Alcohol Use History: None Reported Past Drug Use History: None Reported - Past Family History Brother(s) Additional Family Medical History / Comment(s): Parkinson's General Exam Limitations: no limitations General appearance: alert, in no apparent distress Head exam: Present: atraumatic, normocephalic, normal inspection Eye exam: Present: normal appearance, PERRL, EOMI. Absent: scleral icterus, conjunctival injection, periorbital swelling ENT exam: Present: normal exam, mucous membranes moist Neck exam: Present: normal inspection. Absent: tenderness, meningismus, lymphadenopathy Respiratory exam: Present: normal lung sounds bilaterally. Absent: respiratory distress, wheezes, rales, rhonchi, stridor Cardiovascular Exam: Present: regular rate, normal rhythm, normal heart sounds. Absent: systolic murmur, diastolic murmur, rubs, gallop, clicks GI/Abdominal exam: Present: soft, normal bowel sounds. Absent: distended, tenderness, guarding, rebound, rigid Extremities exam: Present: normal inspection, full ROM, normal capillary refill. Absent: tenderness, pedal edema, joint swelling, calf tenderness Back exam: Present: normal inspection Neurological exam: Present: alert, oriented X3, CN II-XII intact Psychiatric exam: Present: normal affect, normal mood Skin exam: Present: warm, dry, intact, normal color. Absent: rash Course Vital Signs 10/06/22 10/06/22 10/06/22 08:57 10:03 11:03 Temperature 97.4 F L Pulse Rate 77 81 84 Respiratory 16 18 14 Rate Blood Pressure 150/82 O2 Sat by Pulse 98 95 94 L Oximetry 10/06/22 13:03 Temperature Pulse Rate 84 Respiratory 18 Rate Blood Pressure 143/77 O2 Sat by Pulse 96 Oximetry EKG Findings - EKG Comments: EKG Findings:: EKG demonstrates normal sinus rhythm with a rate of 75. MT interval 178. QRS 86. QTC 448. No acute ST segment elevations or depressions EKG is interpreted by myself Medical Decision Making - Medical Decision Making Upon arrival patient was placed into room 1. A thorough history and physical exam was performed. IV access is established laboratory studies are conducted. Patient is placed on continuous pulse ox and cardiac monitoring. Twelve-lead E KG was obtained. Patient is pain-free at this time. Laboratory studies reviewed and troponin is negative. Covert and influenza are not detected. Chest x-ray demonstrates a left lower lung opacity seen on lateral view only. This is followed by a CT of the patient's chest which demonstrates prominent vasculature in that area otherwise no acute process. Results are discussed the patient. Due to his recurrent chest pain with history of cardiac disease I did recommend admission for which the patient was agreeable. Spoke with Dr. powers who agreed to admit the patient. Patient taken to the floor in stable condition - Lab Data Result diagrams: 10/07/22 05:23 10/09/22 05:58 Lab Results 10/06/22 10/06/22 10/06/22 Range/Units 09:42 09:42 09:42 WBC 10.3 (3.8-10.6) k/uL RBC 4.49 (4.30-5.90) m/uL Hgb 14.1 (13.0-17.5) gm/dL Hct 41.6 (39.0-53.0) % MCV 92.8 (80.0-100.0) fL MCH 31.5 (25.0-35.0) pg MCHC 33.9 (31.0-37.0) g/dL RDW 13.0 (11.5-15.5) % Plt Count 301 (150-450) k/uL MPV 8.0 Neutrophils % 69 % Lymphocytes % 18 % Monocytes % 7 % Eosinophils % 3 % Basophils % 1 % Neutrophils # 7.2 (1.3-7.7) k/uL Lymphocytes # 1.9 (1.0-4.8) k/uL Monocytes # 0.7 (0-1.0) k/uL Eosinophils # 0.3 (0-0.7) k/uL Basophils # 0.1 (0-0.2) k/uL PT 10.9 (9.0-12.0) sec INR 1.0 (<1.2) APTT 23.6 (22.0-30.0) sec Sodium 141 (137-145) mmol/L Potassium 4.5 (3.5-5.1) mmol/L Chloride 108 H (98-107) mmol/L Carbon Dioxide 27 (22-30) mmol/L Anion Gap 6 mmol/L BUN 19 (9-20) mg/dL Creatinine 0.65 L (0.66-1.25) mg/dL Est GFR (CKD-EPI)AfAm >90 (>60 ml/min/1.73 sqM) Est GFR (CKD-EPI)NonAf >90 (>60 ml/min/1.73 sqM) Glucose 124 H (74-99) mg/dL Plasma Lactic Acid Aleksandr (0.7-2.0) mmol/L Calcium 8.8 (8.4-10.2) mg/dL Total Bilirubin 1.1 (0.2-1.3) mg/dL AST 45 (17-59) U/L ALT 43 (4-49) U/L Alkaline Phosphatase 70 (38-126) U/L Troponin I (0.000-0.034) ng/mL NT-Pro-B Natriuret Pep pg/mL Total Protein 6.4 (6.3-8.2) g/dL Albumin 3.9 (3.5-5.0) g/dL Coronavirus (PCR) (Not Detectd) Influenza Type A RNA (Not Detectd) Influenza Type B (PCR) (Not Detectd) 10/06/22 10/06/22 10/06/22 Range/Units 09:42 09:42 09:42 WBC (3.8-10.6) k/uL RBC (4.30-5.90) m/uL Hgb (13.0-17.5) gm/dL Hct (39.0-53.0) % MCV (80.0-100.0) fL MCH (25.0-35.0) pg MCHC (31.0-37.0) g/dL RDW (11.5-15.5) % Plt Count (150-450) k/uL MPV Neutrophils % % Lymphocytes % % Monocytes % % Eosinophils % % Basophils % % Neutrophils # (1.3-7.7) k/uL Lymphocytes # (1.0-4.8) k/uL Monocytes # (0-1.0) k/uL Eosinophils # (0-0.7) k/uL Basophils # (0-0.2) k/uL PT (9.0-12.0) sec INR (<1.2) APTT (22.0-30.0) sec Sodium (137-145) mmol/L Potassium (3.5-5.1) mmol/L Chloride (98-107) mmol/L Carbon Dioxide (22-30) mmol/L Anion Gap mmol/L BUN (9-20) mg/dL Creatinine (0.66-1.25) mg/dL Est GFR (CKD-EPI)AfAm (>60 ml/min/1.73 sqM) Est GFR (CKD-EPI)NonAf (>60 ml/min/1.73 sqM) Glucose (74-99) mg/dL Plasma Lactic Acid Aleksandr 1.8 (0.7-2.0) mmol/L Calcium (8.4-10.2) mg/dL Total Bilirubin (0.2-1.3) mg/dL AST (17-59) U/L ALT (4-49) U/L Alkaline Phosphatase (38-126) U/L Troponin I <0.012 (0.000-0.034) ng/mL NT-Pro-B Natriuret Pep 107 pg/mL Total Protein (6.3-8.2) g/dL Albumin (3.5-5.0) g/dL Coronavirus (PCR) (Not Detectd) Influenza Type A RNA (Not Detectd) Influenza Type B (PCR) (Not Detectd) 10/06/22 10/06/22 Range/Units 09:42 09:42 WBC (3.8-10.6) k/uL RBC (4.30-5.90) m/uL Hgb (13.0-17.5) gm/dL Hct (39.0-53.0) % MCV (80.0-100.0) fL MCH (25.0-35.0) pg MCHC (31.0-37.0) g/dL RDW (11.5-15.5) % Plt Count (150-450) k/uL MPV Neutrophils % % Lymphocytes % % Monocytes % % Eosinophils % % Basophils % % Neutrophils # (1.3-7.7) k/uL Lymphocytes # (1.0-4.8) k/uL Monocytes # (0-1.0) k/uL Eosinophils # (0-0.7) k/uL Basophils # (0-0.2) k/uL PT (9.0-12.0) sec INR (<1.2) APTT (22.0-30.0) sec Sodium (137-145) mmol/L Potassium (3.5-5.1) mmol/L Chloride (98-107) mmol/L Carbon Dioxide (22-30) mmol/L Anion Gap mmol/L BUN (9-20) mg/dL Creatinine (0.66-1.25) mg/dL Est GFR (CKD-EPI)AfAm (>60 ml/min/1.73 sqM) Est GFR (CKD-EPI)NonAf (>60 ml/min/1.73 sqM) Glucose (74-99) mg/dL Plasma Lactic Acid Aleksandr (0.7-2.0) mmol/L Calcium (8.4-10.2) mg/dL Total Bilirubin (0.2-1.3) mg/dL AST (17-59) U/L ALT (4-49) U/L Alkaline Phosphatase (38-126) U/L Troponin I (0.000-0.034) ng/mL NT-Pro-B Natriuret Pep pg/mL Total Protein (6.3-8.2) g/dL Albumin (3.5-5.0) g/dL Coronavirus (PCR) Not Detected (Not Detectd) Influenza Type A RNA Not Detected (Not Detectd) Influenza Type B (PCR) Not Detected (Not Detectd) Disposition Clinical Impression: Chest pain, ASCVD (arteriosclerotic cardiovascular disease) Disposition: ADMITTED IP TO THIS HOSP Condition: Stable Is patient prescribed a controlled substance at d/c from ED?: No Time of Disposition: 11:32 Decision to Admit Reason: Admit from EC Decision Date: 10/06/22 Decision Time: 11:33
--- NOTE | 2022-10-06 12:10 | CT ---
EXAMINATION TYPE: CT chest wo con CT DLP: 312.9 mGycm, Automated exposure control for dose reduction was used. DATE OF EXAM: 10/06/2022 11:38 AM COMPARISON: Chest radiograph from same day. CLINICAL INDICATION:Male, 81 years old with history of lung mass, TECHNIQUE: Multiple axial images were obtained through the chest. Sagittal and coronal reformats were created for review. Contrast used: none. Oral contrast used: none. FINDINGS: LUNGS/ PLEURA: Opacity on lateral view correlates with atelectasis in a lower lobe pulmonary vasculat ure which are prominent. No focal consolidation, pneumothorax or pleural effusion. Mild emphysema aide nges most proximal lung apices. AIRWAY: Patent and unremarkable. HEART: Heart is mildly enlarged for size with coronary artery atherosclerosis which is moderate to se adelina. MEDIASTINUM: No gross evidence of adenopathy. VASCULATURE: No aortic aneurysm. MUSCULOSKELETAL: No acute osseous abnormalities, multilevel disc degeneration changes of the spine SOFT TISSUES/LYMPH NODES: Mild gynecomastia changes bilaterally. LOWER NECK: No significant findings. UPPER ABDOMEN: Pseudohypertrophy atrophy changes sagittal lipomatous hypertrophy changes of the pancr eatic parenchyma. IMPRESSION: 1. Opacity seen on chest radiograph correlates with prominent right lower lobe pulmonary vasculature . No suspicious pulmonary nodules. No evidence of acute lung disease. 2. Severe coronary artery atherosclerosis.
[2022-10-06] MEDS ORDERED: NALOXONE 0.4 MG/ML 1 ML VIAL IV PRN (12:44)
[2022-10-06] MEDS ORDERED: ASPIRIN 81 MG PO STA (12:48)
--- NOTE | 2022-10-06 13:42 | P.HPIM ---
History of Present Illness This is a pleasant 81 years old male with past medical history of diabetes mellitus hyperlipidemia, hypothyroidism Presents because of chest pain. Patient states that he started having this chest pain this morning, the middle and left side, nonradiating nonspecific associated with some mild dizziness and shortness of breath this morning, he rates his pain as 8-9/10 in severity however he says that his pain is gone now. He does not feel dizzy or short of breath. But also he is on low dose of oxygen via nasal cannula. Patient states that he has similar chest pain last Saturday and he wants to [facility] with chest x-ray and lab work there were fine as per patient and her chest pain resolved. He was discharged back home. He denies any other symptoms. No abdominal pain vomiting or diarrhea. No dysuria urgency. No headache or weakness or numbness. He has some prostate problems on this is a chronic. No dysuria or change in frequency ago. Patient has history of coronary artery disease and he had 4 stents placed for him last October, his fiction and nonfiction prose writer out of town Dr. singh (! Spe ). Patient used to be on Plavix and aspirin however his fiction and nonfiction prose writer stopped his aspirin about 4-5 months ago because he has frequent bruising, currently taking Plavix on Vitas looks stable Unremarkable CBC INR, BMP liver enzymes. Troponin time once negative less than 0.012. ProBNP 107. Coronary and influenza viruses are undetected Chest x-ray: No acute abnormality, possible lung nodule recommended CT of the chest EKG showed normal sinus rhythm at 75ST-T changes CT of the chest, opacity seen on chest radiograph correlated with prominent right lower lobe pulmonary vasculature. No suspicious pulmonary nodules. No evidence of acute lung disease. Severe coronary artery atherosclerosis. Patient given aspirin 1 and admitted with cardiology evaluation Review of Systems Review of systems CONSTITUTIONAL: No fever, no malaise, no fatigue. HEENT: No recent visual problems or hearing problems. Denied any sore throat. CARDIOVASCULAR: No orthopnea, PND, no palpitations, no syncope. PULMONARY: No shortness of breath, no cough, no hemoptysis. GASTROINTESTINAL: No diarrhea, no nausea, no vomiting, no abdominal pain. Normoactive bowel sounds. NEUROLOGICAL: No headaches, no weakness, no numbness. HEMATOLOGICAL: Denies any bleeding or petechiae. GENITOURINARY: Denies any burning micturition, frequency, or urgency. MUSCULOSKELETAL/RHEUMATOLOGICAL: Denies any joint pain, swelling, or any muscle pain. ENDOCRINE: Denies any polyuria or polydipsia. Past Medical History Past Medical History: Diabetes Mellitus, Thyroid Disorder Additional Past Medical History / Comment(s): stroke History of Any Multi-Drug Resistant Organisms: None Reported Past Surgical History: Unable to Obtain Past Anesthesia/Blood Transfusion Reactions: No Reported Reaction Past Psychological History: No Psychological Hx Reported Past Alcohol Use History: None Reported Past Drug Use History: None Reported - Past Family History Brother(s) Additional Family Medical History / Comment(s): Parkinson's Medications and Allergies Home Medications Medication Instructions Recorded Confirmed Type Glimepiride [Amaryl] 4 mg PO AC-BRKFST 12/07/17 10/06/22 History Multivitamin [Men's Multi-Vitamin] 1 tab PO AC-BRKFST 12/07/17 10/06/22 History metFORMIN HCL [Glucophage] 500 mg PO AC-TID 12/07/17 10/06/22 History Atorvastatin [Lipitor] 20 mg PO AC-BRKFST 10/06/22 10/06/22 History Calcium Carbonate [Calcium] 600 mg PO AC-BRKFST 10/06/22 10/06/22 History Clopidogrel [Plavix] 75 mg PO AC-BRKFST 10/06/22 10/06/22 History Levothyroxine Sodium [Synthroid] 112 mcg PO AC-BRKFST 10/06/22 10/06/22 History Prostate Supplement 1 cap PO AC-BRKFST 10/06/22 10/06/22 History dilTIAZem HCL [dilTIAZem HCL 24Hr 120 mg PO HS 10/06/22 10/06/22 History ER (Xr)] Allergies Allergy/AdvReac Type Severity Reaction Status Date / Time codeine Allergy Unknown Verified 10/06/22 12:02 Physical Exam Vitals: Vital Signs Temp Pulse Resp BP Pulse Ox 10/06/22 08:57 97.4 F L 77 16 150/82 98 Intake and Output 10/05/22 10/06/22 10/06/22 22:59 06:59 14:59 Other: Weight 79.379 kg GENERAL: The patient is alert and oriented x3, not in any acute distress. Well developed, well nourished. HEENT: Pupils are round and equally reacting to light. EOMI. No scleral icterus. No conjunctival pallor. Normocephalic, atraumatic. No pharyngeal erythema. No thyromegaly. CARDIOVASCULAR: S1 and S2 present. No murmurs, rubs, or gallops. PULMONARY: Chest is clear to auscultation, no wheezing or crackles. ABDOMEN: Soft, nontender, nondistended, normoactive bowel sounds. No palpable organomegaly. MUSCULOSKELETAL: No joint swelling or deformity. EXTREMITIES: No cyanosis, clubbing, or pedal edema. NEUROLOGICAL: Gross neurological examination did not reveal any focal deficits. SKIN: No rashes. no petechiae. Results CBC & Chem 7: 10/06/22 09:42 10/06/22 09:42 Labs: Abnormal Lab Results - Last 24 Hours (Table) 10/06/22 Range/Units 09:42 Chloride 108 H (98-107) mmol/L Creatinine 0.65 L (0.66-1.25) mg/dL Glucose 124 H (74-99) mg/dL Assessment and Plan Assessment: Chest pain, rule out cardiac causes History of coronary artery disease status post 4 stents about one year ago History of stroke with right foot drop, brace in place diabetes mellitus hyperlipidemia hypothyroidism Plan: Continue with Plavix, from home medication. We will add aspirin 81 mg. Cardiology team is consulted Check echocardiogram Serial troponin Check hemoglobin A1c Labs and medication were reviewed.. Continue same treatment. Continue with symptomatic treatment. Resume home medication. Monitor labs and vitals. DVT and GI prophylaxis. Further recommendations as per clinical course of the patient DVT prophylaxis: Subcutaneous heparin GI Prophylaxis: Pepcid PT/OT: Pending Prognosis is guarded
[2022-10-06 17:01] LABS: Glucose,Whole Blood 151 mg/dL (70-110)
[2022-10-06] MEDS: metFORMIN 500 MG TAB PO SCH (18:26)
[2022-10-06 20:38] LABS: Glucose,Whole Blood 178 mg/dL (70-110)
[2022-10-06] MEDS: HEPARIN SODIUM,PORCINE/PF 5,000 UNIT/0.5 ML SYRINGE SQ SCH (20:43)
[2022-10-06] MEDS: DILTIAZEM CD 120 MG CAP.ER.24H PO SCH (20:43)
[2022-10-06] MEDS: FAMOTIDINE 20 MG/2 ML VIAL IV SCH (20:43)
[2022-10-07] MEDS: ATORVASTATIN 20 MG TAB PO SCH (05:46)
[2022-10-07] MEDS: CALCIUM CARB-VIT D 500 MG-5 MCG TAB PO SCH (05:46)
[2022-10-07] MEDS: MULTIVITAMINS, THERA 1 EACH TAB PO SCH (05:46)
[2022-10-07] MEDS: LEVOTHYROXINE 112 MCG TAB PO SCH (05:46)
[2022-10-07] MEDS: GLIMEPIRIDE 4 MG TAB PO SCH (05:46)
[2022-10-07] MEDS: metFORMIN 500 MG TAB PO SCH ×3 (05:46→17:28)
[2022-10-07] MEDS: CLOPIDOGREL 75 MG TAB PO SCH (05:46)
[2022-10-07 06:28] LABS: Basophils # (A) 0.1 k/uL (0-0.2); Basophils % (A) 1 %; Eosinophils # (A) 0.5 k/uL (0-0.7); Eosinophils % (A) 5 %; HCT 42.2 % (39.0-53.0); HGB 13.9 gm/dL (13.0-17.5); Lymphocytes # (A) 2.3 k/uL (1.0-4.8); Lymphocytes % (A) 24 %; MCH 30.9 pg (25.0-35.0); MCHC 33.1 g/dL (31.0-37.0); MCV 93.6 fL (80.0-100.0); Mean Platelet Volume 7.8; Monocytes # (A) 0.6 k/uL (0-1.0); Monocytes % (A) 6 %; Neutrophils # (A) 5.8 k/uL (1.3-7.7); Neutrophils % (A) 62 %; Platelet Count 275 k/uL (150-450); WBC 9.4 k/uL (3.8-10.6)
[2022-10-07 06:38] LABS: African American GFR (CKD) >90 (>60 ml/min/1.73 sqM); Anion Gap 5 mmol/L; Blood Urea Nitrogen 19 mg/dL (9-20); Calcium 8.6 mg/dL (8.4-10.2); Carbon Dioxide 27 mmol/L (22-30); Chloride 107 mmol/L (98-107); Glucose 94 mg/dL (74-99); Non-African American GFR(CKD) 89 (>60 ml/min/1.73 sqM); Potassium 4.4 mmol/L (3.5-5.1); Sodium 139 mmol/L (137-145)
[2022-10-07] MEDS: FAMOTIDINE 20 MG/2 ML VIAL IV SCH ×2 (08:31→20:08)
[2022-10-07] MEDS: ASPIRIN 81 MG PO SCH (08:31)
[2022-10-07] MEDS: HEPARIN SODIUM,PORCINE/PF 5,000 UNIT/0.5 ML SYRINGE SQ SCH ×2 (08:32→20:08)
[2022-10-07] MEDS ORDERED: CAFFEINE CITRATE 60 MG/3 ML VIAL IV PRN (10:18)
[2022-10-07] MEDS ORDERED: REGADENOSON 0.4 MG/5 ML SYRINGE IV PRN (10:18)
[2022-10-07] MEDS ORDERED: AMINOPHYLLINE 500 MG/20 ML VIAL IV PRN (10:18)
--- NOTE | 2022-10-07 10:21 | P.CRDCN ---
History of Present Illness Consult date: 10/07/22 Chief complaint: CP History of present illness: The patient is a pleasant 81-year-old gentleman with a past medical history significant for coronary artery disease with a prior stenting with unknown details as well as diabetes and hypertension and dyslipidemia. We requested to see the patient for consult for further evaluation of chest discomfort. He presented to the emergency department complaining of chest discomfort. He describes discomfort as a dull kind of discomfort in the middle of the chest was no radiation and no cystic the symptoms but sometimes he has been experiencing palpitation with this. No dizziness or lightheadedness and no presyncope or syncope. He underwent a workup including EKG showing sinus with no significant ST or T-wave abnormalities and also he underwent cardiac enzymes came in to be unremarkable. He presented initially to different emergency department before he came in here and he was discharged same day but because his symptoms recur he decided to come to the emergency room here. The patient stated that he had no stress test within the last 6 months to a year. I'm going to schedule the patie nt to undergo a Lexiscan Cardiolite as well as echocardiogram and follow-up with him. Past Medical History Past Medical History: Diabetes Mellitus, Thyroid Disorder Additional Past Medical History / Comment(s): stroke History of Any Multi-Drug Resistant Organisms: None Reported Past Surgical History: Unable to Obtain Additional Past Surgical History / Comment(s): States 4 stents Past Anesthesia/Blood Transfusion Reactions: No Reported Reaction Date of Last Stent Placement:: 10/11/2021 Past Psychological History: No Psychological Hx Reported Past Alcohol Use History: None Reported Past Drug Use History: None Reported - Past Family History Brother(s) Additional Family Medical History / Comment(s): Parkinson's Medications and Allergies Home Medications Medication Instructions Recorded Confirmed Type Glimepiride [Amaryl] 4 mg PO AC-BRKFST 12/07/17 10/06/22 History Multivitamin [Men's Multi-Vitamin] 1 tab PO AC-BRKFST 12/07/17 10/06/22 History metFORMIN HCL [Glucophage] 500 mg PO AC-TID 12/07/17 10/06/22 History Atorvastatin [Lipitor] 20 mg PO AC-BRKFST 10/06/22 10/06/22 History Calcium Carbonate [Calcium] 600 mg PO AC-BRKFST 10/06/22 10/06/22 History Clopidogrel [Plavix] 75 mg PO AC-BRKFST 10/06/22 10/06/22 History Levothyroxine Sodium [Synthroid] 112 mcg PO AC-BRKFST 10/06/22 10/06/22 History Prostate Supplement 1 cap PO AC-BRKFST 10/06/22 10/06/22 History dilTIAZem HCL [dilTIAZem HCL 24Hr 120 mg PO HS 10/06/22 10/06/22 History ER (Xr)] Allergies Allergy/AdvReac Type Severity Reaction Status Date / Time codeine Allergy Unknown Verified 10/06/22 12:02 Physical Exam Vitals: Vital Signs Temp Pulse Pulse Resp BP BP Pulse Ox 10/07/22 07:00 97.4 F L 67 18 134/75 93 L 10/07/22 02:18 97.8 F 66 18 116/62 92 L 10/07/22 02:06 82 16 10/06/22 20:43 82 16 10/06/22 19:20 97.9 F 82 16 123/71 90 L 10/06/22 15:00 98.0 F 82 16 154/84 95 10/06/22 13:03 84 18 143/77 96 10/06/22 11:03 84 14 94 L Intake and Output 10/06/22 10/07/22 10/07/22 22:59 06:59 14:59 Intake Total 118 Balance 118 Intake: Oral 118 Other: Voiding Method Toilet Toilet # Voids 1 1 1 - Constitutional General appearance: no acute distress - Respiratory Respiratory: bilateral: CTA - Cardiovascular Rhythm: regular Heart sounds: normal: S1, S2 Results 10/07/22 05:23 10/07/22 05:23 Cardiac Enzymes 10/06/22 10/06/22 10/06/22 Range/Units 09:42 09:42 15:01 AST 45 (17-59) U/L Troponin I <0.012 <0.012 (0.000-0.034) ng/mL 10/06/22 Range/Units 18:43 AST (17-59) U/L Troponin I <0.012 (0.000-0.034) ng/mL Coagulation 10/06/22 Range/Units 09:42 PT 10.9 (9.0-12.0) sec APTT 23.6 (22.0-30.0) sec CBC 10/07/22 Range/Units 05:23 WBC 9.4 (3.8-10.6) k/uL RBC 4.50 (4.30-5.90) m/uL Hgb 13.9 (13.0-17.5) gm/dL Hct 42.2 (39.0-53.0) % Plt Count 275 (150-450) k/uL Comprehensive Metabolic Panel 10/06/22 10/07/22 Range/Units 09:42 05:23 Sodium 141 139 (137-145) mmol/L Potassium 4.5 4.4 (3.5-5.1) mmol/L Chloride 108 H 107 (98-107) mmol/L Carbon Dioxide 27 27 (22-30) mmol/L BUN 19 19 (9-20) mg/dL Creatinine 0.65 L 0.69 (0.66-1.25) mg/dL Glucose 124 H 94 (74-99) mg/dL Calcium 8.8 8.6 (8.4-10.2) mg/dL AST 45 (17-59) U/L ALT 43 (4-49) U/L Alkaline Phosphatase 70 (38-126) U/L Total Protein 6.4 (6.3-8.2) g/dL Albumin 3.9 (3.5-5.0) g/dL Current Medications Generic Name Dose Route Start Last Admin Trade Name Freq PRN Reason Stop Dose Admin Aspirin 81 mg 10/07/22 09:00 10/07/22 08:31 Aspirin 81 Mg PO 81 mg DAILY STACI Administration Atorvastatin Calcium 20 mg 10/07/22 07:30 10/07/22 05:46 Atorvastatin 20 Mg Tab PO 20 mg AC-KT [facility] Administration Calcium Carbonate 1 each 10/07/22 07:30 10/07/22 05:46 Calcium Carb-Vit D 500 Mg-5 Mcg Tab PO 1 each / [facility] Administration Clopidogrel Bisulfate 75 mg 10/07/22 07:30 10/07/22 05:46 Clopidogrel 75 Mg Tab PO 75 mg AC-BRKFST STACI Administration Diltiazem HCl 120 mg 10/06/22 21:00 10/06/22 20:43 Diltiazem Cd 120 Mg Cap.Er.24h PO 120 mg HS STACI Administration Famotidine 20 mg 10/06/22 21:00 10/07/22 08:31 Famotidine 20 Mg/2 Ml Vial IV 20 mg Q12HR STACI Administration Glimepiride 4 mg 10/07/22 07:30 10/07/22 05:46 Glimepiride 4 Mg Tab PO 4 mg AC-BRKFST STACI Administration Heparin Sodium (Porcine) 5,000 unit 10/06/22 21:00 10/07/22 08:32 Heparin Sodium,Porcine/Pf 5,000 Unit/0.5 Ml Syringe SQ 5,000 unit Q12HR STACI Administration Levothyroxine Sodium 112 mcg 10/07/22 07:30 10/07/22 05:46 Levothyroxine 112 Mcg Tab PO 112 mcg AC-BRKFST STACI Administration Metformin HCl 500 mg 10/06/22 17:30 10/07/22 05:46 Metformin 500 Mg Tab PO 500 mg AC-TID STACI Administration Multivitamins 1 each 10/07/22 07:30 10/07/22 05:46 Multivitamins, Thera 1 Each Tab PO 1 each AC-BRKFST STACI Administration Naloxone HCl 0.2 mg 10/06/22 12:44 Naloxone 0.4 Mg/Ml 1 Ml Vial IV Q2M PRN Opioid Reversal Intake and Output 10/06/22 10/07/22 10/07/22 22:59 06:59 14:59 Intake Total 118 Balance 118 Intake: Oral 118 Other: Voiding Method Toilet Toilet # Voids 1 1 1 10/07/22 05:23 10/07/22 05:23 Assessment and Plan Assessment: Assessment Atypical chest discomfort Coronary artery disease with prior revascularization Multiple comorbidities including diabetes and hypertension and dyslipidemia. Plan Acute coronary event was ruled out Continue the current medical regimen Obtain further risk stratification with an echo and stress test Follow-up with the pt
[2022-10-07 12:03] LABS: Glucose,Whole Blood 177 mg/dL (70-110)
--- NOTE | 2022-10-07 13:25 | P.PN ---
Subjective This is a pleasant 81 years old male with past medical history of diabetes mellitus hyperlipidemia, hypothyroidism Presents because of chest pain. Patient states that he started having this chest pain this morning, the middle and left side, nonradiating nonspecific associated with some mild dizziness and shortness of breath this morning, he rates his pain as 8-9/10 in severity however he says that his pain is gone now. He does not feel dizzy or short of breath. But also he is on low dose of oxygen via nasal cannula. Patient states that he has similar chest pain last Saturday and he wants to [facility] with chest x-ray and lab work there were fine as per patient and her chest pain resolved. He was discharged back home. He denies any other symptoms. No abdominal pain vomiting or diarrhea. No dysuria urgency. No headache or weakness or numbness. He has some prostate problems on this is a chronic. No dysuria or change in frequency ago. Patient has history of coronary artery disease and he had 4 stents placed for hi m last October, his fabric sourcer out of town Dr. singh (! Spe ). Patient used to be on Plavix and aspirin however his fabric sourcer stopped his aspirin about 4-5 months ago because he has frequent bruising, currently taking Plavix on Vitas looks stable Unremarkable CBC INR, BMP liver enzymes. Troponin time once negative less than 0.012. ProBNP 107. Coronary and influenza viruses are undetected Chest x-ray: No acute abnormality, possible lung nodule recommended CT of the chest EKG showed normal sinus rhythm at 75ST-T changes CT of the chest, opacity seen on chest radiograph correlated with prominent right lower lobe pulmonary vasculature. No suspicious pulmonary nodules. No evidence of acute lung disease. Severe coronary artery atherosclerosis. Patient given aspirin 1 and admitted with cardiology evaluation 10/07/2022 Patient with no chest pain today. No other new complaint Vitals are stable. His hemoglobin A1c is 6.7% which is acceptable. He remains on aspirin and Plavix, at home he was on Plavix only and baby aspirin added on admission by medical team. Tube Puller recommended to continue with the same medical regimen Plan for stress test and echocardiogram which are pending Objective - Vital Signs Vital signs: Vital Signs Temp 97.4 F L 10/07/22 07:00 Pulse 67 10/07/22 07:00 Resp 18 10/07/22 07:00 BP 134/75 10/07/22 07:00 Pulse Ox 93 L 10/07/22 07:00 FiO2 Intake & Output 10/06/22 10/07/22 10/07/22 18:59 06:59 18:59 Intake Total 118 Balance 118 Weight 79.379 kg Intake: Oral 118 Other: Voiding Method Toilet # Voids 1 1 1 - Exam GENERAL: The patient is alert and oriented x3, not in any acute distress. Well developed, well nourished. HEENT: Pupils are round and equally reacting to light. EOMI. No scleral icterus. No conjunctival pallor. Normocephalic, atraumatic. No pharyngeal erythema. No thyromegaly. CARDIOVASCULAR: S1 and S2 present. No murmurs, rubs, or gallops. PULMONARY: Chest is clear to auscultation, no wheezing or crackles. ABDOMEN: Soft, nontender, nondistended, normoactive bowel sounds. No palpable organomegaly. MUSCULOSKELETAL: No joint swelling or deformity. EXTREMITIES: No cyanosis, clubbing, or pedal edema. NEUROLOGICAL: Gross neurological examination did not reveal any focal deficits. SKIN: No rashes. no petechiae. - Labs CBC & Chem 7: 10/07/22 05:23 10/07/22 05:23 Labs: Abnormal Lab Results - Last 24 Hours (Table) 10/06/22 10/06/22 10/06/22 Range/Units 09:42 17:00 20:36 Chloride 108 H (98-107) mmol/L Creatinine 0.65 L (0.66-1.25) mg/dL Glucose 124 H (74-99) mg/dL POC Glucose (mg/dL) 151 H 178 H (70-110) mg/dL Assessment and Plan Assessment: Chest pain, rule out cardiac causes History of coronary artery disease status post 4 stents about one year ago History of stroke with right foot drop, brace in place diabetes mellitus hyperlipidemia hypothyroidism Plan: Continue with Plavix, from home medication. We will add aspirin 81 mg. Cardiology team is consulted, recommended to continue with the same management and check stress test Check echocardiogram Labs and medication were reviewed.. Continue same treatment. Continue with symptomatic treatment. Resume home medication. Monitor labs and vitals. DVT and GI prophylaxis. Further recommendations as per clinical course of the patient DVT prophylaxis: Subcutaneous heparin GI Prophylaxis: Pepcid Prognosis is guarded Plan discussed with the patient and he is agreeable
[2022-10-07 17:26] LABS: Glucose,Whole Blood 259 mg/dL (70-110)
[2022-10-07] MEDS: DILTIAZEM CD 120 MG CAP.ER.24H PO SCH (20:08)
[2022-10-08] MEDS: metFORMIN 500 MG TAB PO SCH ×3 (05:41→17:24)
[2022-10-08] MEDS: LEVOTHYROXINE 112 MCG TAB PO SCH (05:41)
[2022-10-08] MEDS: GLIMEPIRIDE 4 MG TAB PO SCH (05:41)
[2022-10-08] MEDS: CLOPIDOGREL 75 MG TAB PO SCH (05:41)
[2022-10-08] MEDS: CALCIUM CARB-VIT D 500 MG-5 MCG TAB PO SCH (05:41)
[2022-10-08] MEDS: ATORVASTATIN 20 MG TAB PO SCH (05:41)
[2022-10-08] MEDS: MULTIVITAMINS, THERA 1 EACH TAB PO SCH (05:42)
[2022-10-08] MEDS ORDERED: REGADENOSON 0.4 MG/5 ML SYRINGE IV PRN (06:00)
[2022-10-08 07:37] LABS: Glucose,Whole Blood 96 mg/dL (70-110)
--- NOTE | 2022-10-08 09:28 | P.PN ---
Subjective Progress Note Date: 10/08/22 HISTORY OF PRESENT ILLNESS: The patient is a pleasant 81-year-old gentleman with a past medical history significant for coronary artery disease with a prior stenting with unknown de tails as well as diabetes and hypertension and dyslipidemia. We requested to see the patient for consult for further evaluation of chest discomfort. He presented to the emergency department complaining of chest discomfort. He describes discomfort as a dull kind of discomfort in the middle of the chest was no radiation and no cystic the symptoms but sometimes he has been experiencing palpitation with this. No dizziness or lightheadedness and no presyncope or syncope. He underwent a workup including EKG showing sinus with no significant ST or T-wave abnormalities and also he underwent cardiac enzymes came in to be unremarkable. He presented initially to different emergency department before he came in here and he was discharged same day but because his symptoms recur he decided to come to the emergency room here. The patient stated that he had no stress test within the last 6 months to a year. I'm going to schedule the patient to undergo a Lexiscan Cardiolite as well as echocardiogram and follow-up with him. 10/08/2022 Patient examined this morning at the bedside. Patient denies any further episodes of chest pain or pressure. Denies SOB. Vital signs are stable. He gives further information that in October of 2020 he had [address] Berger. He reports being told he had another blockage at that time but it was not significant enough for stenting. PHYSICAL EXAM: VITAL SIGNS: Reviewed. GENERAL: Well-developed in no acute distress. NECK: Supple. No JVD or thyromegaly LUNGS: Respirations even and unlabored. Lungs essentially clear to auscultation bilaterally. HEART: Regular rate and rhythm. S1 and S2 heard. EXTREMITIES: Normal range of motion. No clubbing or cyanosis. Peripheral pulses intact. No lower extremity edema ASSESSMENT: Chest pain Coronary artery disease with previous stenting Hypertension Hyperlipidemia Diabetes PLAN: Continue current cardiac medications 2-D echo ordered. Await results Patient to undergo Lexiscan stress test today If negative, the patient to be discharged home today and follow-up with his primary astrobiologist Nurse practitioner note has been reviewed by physician. Signing provider agrees with the documented findings, assessment, and plan of care. Objective - Vital Signs Vital signs: Vital Signs Temp 97.8 F 10/08/22 02:00 Pulse 64 10/08/22 02:00 Resp 17 10/08/22 02:00 BP 102/63 10/08/22 02:00 Pulse Ox 94 L 10/08/22 02:00 FiO2 Intake & Output 10/07/22 10/08/22 10/08/22 18:59 06:59 18:59 Intake Total 236 Balance 236 Intake: Oral 236 Other: Voiding Method Toilet # Voids 1 1 - Labs CBC & Chem 7: 10/07/22 05:23 10/07/22 05:23 Labs: Abnormal Lab Results - Last 24 Hours (Table) 10/07/22 10/07/22 10/07/22 Range/Units 05:51 12:01 17:25 POC Glucose (mg/dL) 177 H 259 H (70-110) mg/dL Hemoglobin A1c 6.7 H (0.0-6.0) %
--- NOTE | 2022-10-08 11:06 | NM ---
EXAMINATION TYPE: NM stress lexiscan cardiolite DATE OF EXAM: 10/08/2022 COMPARISON: NONE HISTORY: History of diabetes and hypercholesterolemia along with prior stroke and four-vessel angiopl asty presents with syncope. TECHNIQUE: After the intravenous administration of 9.4 mCi Tc 99m Sestamibi - Cardiolite resting SPE CT images acquired 65 minutes post injection. The patient received 0.4mg Lexiscan, 24.2 mCi Tc 99m Sestamibi - Stress images obtained [address] injection FINDINGS: Review of stress and rest SPECT images demonstrates small area of diminished signal on stress images versus rest images involving the lateral wall mid to apical segment in which acute ischemia cannot be excluded confirming on Polar map. Gated analysis shows normal overall left ventricular ejection fra ction of 58 %. IMPRESSION: Possible acute ischemia lateral left ventricular wall mid to apical segment in the left c ircumflex distribution. Correlate clinically and with EKG advised to determine need for further inves tigation by direct catheter angiogram. A Yellow level critical message alert has been initiated for Max Winters via the [employer] Results System on 10/08/2022 11:04 AM. This message alert has been sent to Max Winters via the pr eferences provided by the clinician for the receipt of Radiology Critical Findings. Message ID [id number].
[2022-10-08] MEDS: HEPARIN SODIUM,PORCINE/PF 5,000 UNIT/0.5 ML SYRINGE SQ SCH ×2 (11:13→21:14)
[2022-10-08] MEDS: ASPIRIN 81 MG PO SCH (11:13)
[2022-10-08] MEDS: FAMOTIDINE 20 MG/2 ML VIAL IV SCH ×2 (11:13→21:14)
[2022-10-08] MEDS ORDERED: ALPRAZolam 0.25 MG TAB PO PRN (11:26)
[2022-10-08] MEDS ORDERED: ASPIRIN 325 MG TAB PO STA (11:26)
[2022-10-08] MEDS ORDERED: SODIUM CHLORIDE 0.9% 1,000 ML in EMPTY BAG 1 BAG IV ONE (11:26)
[2022-10-08] MEDS ORDERED: ATORVASTATIN 20 MG TAB PO STA (11:26)
[2022-10-08] MEDS ORDERED: ALPRAZolam 0.5 MG TAB PO PRN (11:26)
[2022-10-08] MEDS ORDERED: NITROGLYCERIN SL TABS 0.4 MG TAB SUBLINGUAL PRN ×2 (11:26→15:39)
[2022-10-08] MEDS ORDERED: ASPIRIN 81 MG PO STA (11:29)
[2022-10-08 12:24] LABS: Glucose,Whole Blood 224 mg/dL (70-110)
[2022-10-08] MEDS ORDERED: VERAPAMIL 2.5 MG/ML 2 ML AMP ONE (14:04)
--- NOTE | 2022-10-08 14:07 | CA ---
Lexiscan Nuclear Stress Test Report Name: Joao Mcknight Exam Date: 10/08/2022 09:22 Exam Location: [facility] Stress Ht (in): 67 Wt (lb): 175 BSA: 1.91 Ordering Phys: Max Winters MD Referring Phys: FEDE,, Technologist: Carlos Bellamy Age: 81 Gender: M : 1940 Procedure CPT: Indications: Reflex order-Stress test ICD-10 Codes: Patient History: Medications: SEE LIST Meds past 24 hrs: Pretest Chest Pain: STRESS TEST Lexiscan Protocol Exercise Duration (min:sec): 02:[address] Depressions (mm): Angina Score: Laughlin Score: Resting HR (bpm): 76 Peak HR (bpm): 100 Resting BP (mmHg): 128 / 69 Peak BP (mmHg): 128 / 63 MPHR: 138 Target HR: 117 % MPHR: 72 METS: 1.0 Total Dose: Peak Dose: Atropine: Double Product: 06280 BP Response: Stress Termination: PROTOCOL COMPLETED Stress Symptoms: SHORT OF BREATH Stress Summary: ECG ANALYSIS Resting ECG: Stress ECG: CONCLUSIONS None diagnostic electrocardiogram stress testing Please follow-up on the Cardiolite portion Dr. Max Winters MD (Electronically Signed) Final Date: 08 October 2022 14:06
[2022-10-08] MEDS ORDERED: IV FLUID CONTINUATION 1,000 ML IV ONE (14:30)
--- NOTE | 2022-10-08 14:42 | CA ---
Transthoracic Echo Report Name: Joao Mcknight Age: 81 Gender: M : 1940 Exam Date: 10/08/2022 10:42 Exam Location: [facility] Ht (in): 67 Wt (lb): 175 Ordering Physician: Max Winters MD ([id number]) Attending/Referring Phys: Service Desk Associate Tammy Esquivel RDCS Procedure CPT: Indications: CP Cardiac Hx: Technical Quality: Fair Contrast 1: Total Dose (mL): Contrast 2: Total Dose (mL): MEASUREMENTS (Male / Female) Normal Values 2D ECHO LV Diastolic Diameter PLAX 3.4 cm 4.2 - 5.9 / 3.9 - 5.3 cm LV Systolic Diameter PLAX 2.3 cm IVS Diastolic Thickness 1.7 cm 0.6 - 1.0 / 0.6 - 0.9 cm LVPW Diastolic Thickness 1.6 cm 0.6 - 1.0 / 0.6 - 0.9 cm LV Relative Wall Thickness 1.0 RV Internal Dim ED PLAX 3.1 cm LA Volume 54.8 cm??? 18 - 58 / 22 - 52 cm??? M-MODE Aortic Root Diameter MM 2.6 cm LA Systolic Diameter MM 2.7 cm LA Ao Ratio MM 1.0 AV Cusp Separation MM 2.2 cm DOPPLER AV Peak Velocity 109.6 cm/s AV Peak Gradient 4.8 mmHg LVOT Peak Velocity 73.7 cm/s LVOT Peak Gradient 2.2 mmHg MV Area PHT 3.2 cm??? Mitral E Point Velocity 56.1 cm/s Mitral A Point Velocity 104.6 cm/s Mitral E to A Ratio 0.5 MV Deceleration Time 234.7 ms TR Peak Velocity 230.9 cm/s TR Peak Gradient 21.3 mmHg Right Ventricular Systolic Press 26.3 mmHg FINDINGS Left Ventricle Moderately increased septal wall thickness. No obvious regional wall motion abnormalities. Left ventricular ejection fraction is estimated at 55-60 %. Right Ventricle Normal right ventricular size and function. Right ventricular systolic pressure within normal limits. Right Atrium Normal right atrial size. Left Atrium Normal left atrial size. Mitral Valve Structurally normal mitral valve. No mitral stenosis, regurgitation or prolapse. Aortic Valve No aortic valve stenosis or regurgitation. Tricuspid Valve Structurally normal tricuspid valve. Mild tricuspid regurgitation. Pulmonic Valve Structurally normal pulmonic valve. Pericardium No pericardial effusion. Aorta Normal size aortic root and proximal ascending aorta. CONCLUSIONS Normal left ventricular dimension and systolic function Previewed by: Dr. Max Winters MD (Electronically Signed) Final Date: 08 October 2022 14:42
[2022-10-08] MEDS ORDERED: LIDOCAINE 1% INJ 10MG/ML (5 ML VIAL-PF) SQ ONE (14:48)
[2022-10-08] MEDS ORDERED: MIDAZOLAM 2 MG/2 ML VIAL IV ONE (14:48)
[2022-10-08] MEDS ORDERED: HEPARIN SODIUM 1,000 UN/ML (10ML VL) IV ONE (15:08)
[2022-10-08] MEDS ORDERED: NITROGLYCERIN 1000MCG/10ML SYRINGE INTRACORON ONE (15:22)
[2022-10-08] MEDS ORDERED: CLOPIDOGREL 75 MG TAB ONE (15:24)
[2022-10-08] MEDS ORDERED: IOPAMIDOL-370 125ML BTL INJ ONE (15:26)
[2022-10-08] MEDS ORDERED: CLOPIDOGREL 75 MG TAB PO ONE (15:27)
[2022-10-08] MEDS ORDERED: RX INFO: IV CONTRAST WAS GIVEN 1 EACH MISC MISCELLANE PRN (15:39)
[2022-10-08] MEDS ORDERED: ATROPINE SULFATE 0.1 MG/ML 10ML SYRINGE IV PRN (15:39)
[2022-10-08] MEDS ORDERED: MAG HYDROX/AL HYDROX/SIMETH 30 ML CUP PO PRN (15:39)
[2022-10-08] MEDS ORDERED: ZOLPIDEM 5 MG TAB PO PRN (15:39)
[2022-10-08] MEDS ORDERED: SODIUM CHLORIDE 0.9% 1,000 ML in EMPTY BAG 1 BAG IV SCH (15:45)
--- NOTE | 2022-10-08 15:45 | P.PCN ---
Date of Procedure: 10/08/22 Operative Findings: CARDIAC CATHETERIZATION AND PERCUTANEOUS CORONARY INTERVENTION PERFORMING PHYSICIAN: Max Winters MD, RPVI PROCEDURE PERFORMED: 1. Selective right and left coronary angiogram 2. Left heart catheterization 3. Successful stenting of distal LCx using 2.5 x 12 mm Xience REID which with an excellent angiographic results 4. Right common femoral artery angiogram INDICATION: This is an 81-year-old gentleman who presented to the hospital with a chest discomfort and ruled out for acute coronary event. He underwent myocardial perfusion imaging stress is and that showed inferolateral ischemia. In the light of that a heart catheterization was advised COMPLICATION: None APPROACH: Right common femoral artery LEVEL OF SEDATION: Moderate with the sedation time off 44 minutes PROCEDURE DESCRIPTION: After obtaining an informed consent the patient was brought to the cardiac vp lab. Initially I attempted accessing the left radial artery but I was unsuccessful. Subsequently the right common femoral artery was cannulated using micropuncture technique, the micro-rupture wire passed easily then I placed a 6- English sheath. After that I did selective right and left coronary angiogram using JR4 and JL4 catheters. Left heart catheterization was performed using the JR4 catheter which across aortic valve then I did pulled back across the valve. After that I did intervene on the left circumflex. The procedure was completed without complication SELECTIVE CORONARY ANGIOGRAM: The right coronary artery: Large caliber vessel and a dominant vessel. The RCA is calcified was mild to moderate diffuse disease. Distally gives rises into PDA branch only I could not visualize any PLV branch. Left main: Calcified was mild disease only. Bifurcates into a LCx and LAD The left circumflex: Large-caliber vessel and codominant vessel. Ostial left circumflex has a lesion appeared to be in the range of 40-50%. The proximal circumflex has mild disease only. Gives rises into OM1 which is a small caliber vessel was mild diffuse disease. The circumflex distally just by the bifurcation of the PDA branch has a lesion appeared to be in the range of 70-80%. The PDA branch of the LCx appears to have mild disease only. Large-caliber vessel The left anterior descending artery: The LAD proximally appears to be calcified was mild to moderate tubular lesion appears to be in the range of 40-50%. The LAD gives rise into a diagonal branch which has mild disease only. The mid and distal LAD appeared to be angiographically normal. The LAD does reach the apex. HEMODYNAMICS: The LVEDP was 8 mmHg was no significant gradient across aortic valve PCI OF THE LCx: Dichorionic patient was initiated using heparin with continuous ACT monitoring. Subsequently I did engage the left main using a CLS 4 guiding catheter. I did wire the LCx using a run-through wire. After that I did predilatation using 2.5 x 12 mm balloon before I attempted advancing 2.5 x 12 mm stent but the stent will not across from the left main to the LCx. After that with adjunctive use of guide liner I was able to deliver the stent to distal left circumflex. The stent was positioned under fluoroscopy guidance and deployed under its nominal pressure. The following angiogram showed good angiographic results and the procedure was completed with no complication. CONCLUSION: Severe disease involving the distal LCx. I did successful stenting of the distal left circumflex POSTPROCEDURE MANAGEMENT: #1 dual antiplatelet therapy using aspirin and Plavix for minimum of 6 months #2 aggressive cholesterol control #3 follow-up with the patient
[2022-10-08 17:18] LABS: Glucose,Whole Blood 94 mg/dL (70-110)
[2022-10-08 20:36] LABS: Glucose,Whole Blood 167 mg/dL (70-110)
[2022-10-08] MEDS: DILTIAZEM CD 120 MG CAP.ER.24H PO SCH (21:14)
[2022-10-08 21:16] VITALS: RESP 18
--- NOTE | 2022-10-08 22:48 | P.PN ---
Subjective Progress Note Date: 10/08/22 Pts vitals stable today, denies chest pain or shortness of breath at rest. Lexiscan stress test positive for ischemia. Objective - Vital Signs Vital signs: Vital Signs Temp 97.4 F L 10/08/22 19:00 Pulse 85 10/08/22 19:00 Resp 18 10/08/22 19:00 BP 148/75 10/08/22 19:00 Pulse Ox 95 10/08/22 19:00 FiO2 Intake & Output 10/08/22 10/08/22 10/09/22 06:59 18:59 06:59 Intake Total 150 Output Total 400 Balance 150 -400 Intake: IV 150 Output: Urine 400 Other: Voiding Method Toilet Toilet Urinal # Voids 1 1 - Exam Gen: well developed male in NAD CV: RRR, no murmur Lungs: Normal effort, clear throughout - Labs CBC & Chem 7: 10/07/22 05:23 10/07/22 05:23 Labs: Abnormal Lab Results - Last 24 Hours (Table) 10/08/22 10/08/22 Range/Units 12:22 20:35 POC Glucose (mg/dL) 224 H 167 H (70-110) mg/dL Assessment and Plan Plan: Pt for catheterization per Cardiology. Continue with supportive care, continue plavix
[2022-10-09 06:45] LABS: African American GFR (CKD) >90 (>60 ml/min/1.73 sqM); Non-African American GFR(CKD) 85 (>60 ml/min/1.73 sqM)
[2022-10-09 06:55] LABS: Glucose,Whole Blood 125 mg/dL (70-110)
[2022-10-09] MEDS: CLOPIDOGREL 75 MG TAB PO SCH (06:56)
[2022-10-09] MEDS: metFORMIN 500 MG TAB PO SCH (06:56)
[2022-10-09] MEDS: MULTIVITAMINS, THERA 1 EACH TAB PO SCH (06:56)
[2022-10-09] MEDS: LEVOTHYROXINE 112 MCG TAB PO SCH (06:56)
[2022-10-09] MEDS: ATORVASTATIN 20 MG TAB PO SCH (06:56)
[2022-10-09] MEDS: GLIMEPIRIDE 4 MG TAB PO SCH (06:56)
[2022-10-09] MEDS: CALCIUM CARB-VIT D 500 MG-5 MCG TAB PO SCH (06:58)
[2022-10-09] MEDS ORDERED: HEPARIN SODIUM,PORCINE 10,000 UNIT in SODIUM CHLORIDE 0.9% 1,000 ML IRRIGATION PRN (07:00)
[2022-10-09] MEDS ORDERED: HEPARIN SODIUM,PORCINE 2,500 UNIT in SODIUM CHLORIDE 0.9% 250 ML IRRIGATION PRN (07:00)
[2022-10-09] MEDS: HEPARIN SODIUM,PORCINE/PF 5,000 UNIT/0.5 ML SYRINGE SQ SCH (08:41)
[2022-10-09] MEDS: FAMOTIDINE 20 MG/2 ML VIAL IV SCH (08:42)
[2022-10-09] MEDS: ASPIRIN 81 MG PO SCH (08:42)
[2022-10-09 09:06] VITALS: BP 113/78; PULSE 105; TEMP 98.1
--- NOTE | 2022-10-09 09:54 | P.PN ---
Subjective Progress Note Date: 10/09/22 HISTORY OF PRESENT ILLNESS: The patient is a pleasant 81-year-old gentleman with a past medical history significant for coronary artery disease with a prior stenting with unknown de tails as well as diabetes and hypertension and dyslipidemia. We requested to see the patient for consult for further evaluation of chest discomfort. He presented to the emergency department complaining of chest discomfort. He describes discomfort as a dull kind of discomfort in the middle of the chest was no radiation and no cystic the symptoms but sometimes he has been experiencing palpitation with this. No dizziness or lightheadedness and no presyncope or syncope. He underwent a workup including EKG showing sinus with no significant ST or T-wave abnormalities and also he underwent cardiac enzymes came in to be unremarkable. He presented initially to different emergency department before he came in here and he was discharged same day but because his symptoms recur he decided to come to the emergency room here. The patient stated that he had no stress test within the last 6 months to a year. I'm going to schedule the patient to undergo a Lexiscan Cardiolite as well as echocardiogram and follow-up with him. 10/08/2022 Patient examined this morning at the bedside. Patient denies any further episodes of chest pain or pressure. Denies SOB. Vital signs are stable. He gives further information that in October of 2020 he had [address] Berger. He reports being told he had another blockage at that time but it was not significant enough for stenting. 10/09/2022 Patient underwent nori scan yesterday which was abnormal. He was subsequently taken to the [facility] and underwent cardiac catheterization with PCI to the circumflex. Patient examined this morning at the bedside. Patient denies chest pain or pressure. He denies shortness of breath. Vital signs are stable. 2-D echo obtained revealing ejection fraction 55-60% with mild TR. PHYSICAL EXAM: VITAL SIGNS: Reviewed. GENERAL: Well-developed in no acute distress. NECK: Supple. No JVD or thyromegaly LUNGS: Respirations even and unlabored. Lungs essentially clear to auscultation bilaterally. HEART: Regular rate and rhythm. S1 and S2 heard. EXTREMITIES: Normal range of motion. No clubbing or cyanosis. Peripheral pulses intact. No lower extremity edema ASSESSMENT: Chest pain, status post PCI of circumflex Coronary artery disease with previous stenting Hypertension Hyperlipidemia Diabetes PLAN: Continue current cardiac medications Continue aspirin and plavix Stable for discharge home today Patient to follow up with his primary shaft headman or Dr. Winters, whichever he prefers Nurse practitioner note has been reviewed by physician. Signing provider agrees with the documented findings, assessment, and plan of care. Objective - Vital Signs Vital signs: Vital Signs Temp 98.1 F 10/09/22 07:00 Pulse 105 H 10/09/22 07:00 Resp 18 10/09/22 07:00 BP 113/78 10/09/22 07:00 Pulse Ox 93 L 10/09/22 07:00 FiO2 Intake & Output 10/08/22 10/09/22 10/09/22 18:59 06:59 18:59 Intake Total 150 118 Output Total 400 Balance 150 -400 118 Intake: IV 150 Oral 118 Output: Urine 400 Other: Voiding Method Toilet Urinal # Voids 1 1 - Labs CBC & Chem 7: 10/07/22 05:23 10/09/22 05:58 Labs: Abnormal Lab Results - Last 24 Hours (Table) 10/08/22 10/08/22 10/09/22 Range/Units 12:22 20:35 06:55 POC Glucose (mg/dL) 224 H 167 H 125 H (70-110) mg/dL
[2022-10-10] MEDS ORDERED: ATORVASTATIN 40 MG TAB PO SCH (07:30)
== END 2022-10-09 09:57 | disposition home or self-care (01) ==
LOC: EC 08:52 → 6NMEDSUR 12:44
PROVIDERS: ADMIT Family Medicine; ATTEND Family Medicine
DX: I25.10 Atherosclerotic heart disease of native coronary artery without angina pectoris (principal); E11.9 Type 2 diabetes mellitus without complications; I10 Essential (primary) hypertension; E78.5 Hyperlipidemia, unspecified; E03.9 Hypothyroidism, unspecified; I69.398 Other sequelae of cerebral infarction; M21.371 Foot drop, right foot; Z95.5 Presence of coronary angioplasty implant and graft; Z20.822 Contact with and (suspected) exposure to COVID-19; Z79.02 Long term (current) use of antithrombotics/antiplatelets; Z79.82 Long term (current) use of aspirin; Z79.84 Long term (current) use of oral hypoglycemic drugs; Z79.890 Hormone replacement therapy; Z79.899 Other long term (current) drug therapy; Z88.5 Allergy status to narcotic agent
CPT/HCPCS: 96361; 96372 ×3; 96374; 96376 ×2; 99285; 36415; 93005; 93306; 93458; 83880; 80053; 80048; 82565; 83605; 84484; 85025 ×2; 85610; 85730; 87502; 83036; 87635; 71046; 71250; 78452; G0378 ×4; C9600; C1760; C1887 ×2; C1769 ×4; C1894; C1725; C1874; A9500; J2250; J2001; J1644 ×5; J2785; Q9967

== ENCOUNTER 2023-02-23 10:13 | Inpatient (IN) | payer MEDICARE, BC ==
--- NOTE | 2023-02-23 10:59 | ED ---
General Adult HPI - General Chief complaint: GI Bleed Stated complaint: Blood in stool,dizziness Time Seen by Provider: 02/23/23 10:25 Source: patient, RN notes reviewed, old records reviewed Mode of arrival: wheelchair Limitations: physical limitation - History of Present Illness Initial comments: This is an 82-year-old male presents emergency Department stating that he got this morning he was dizzy. Patient states he felt like he was floating in the room. Patient states he also noticed some blood in his stool this morning. Patient states she's on Plavix and this happen before and he stopped his Plavix and the bleeding went away. Patient denies any chest pain or palpitation. Patient states he did feel little short of breath. Patient states he also was mildly nauseated this morning when he felt a floating feeling. Patient denies headache patient denies any numbness or weakness. - Related Data Home Medications Medication Instructions Recorded Confirmed Glimepiride [Amaryl] 4 mg PO AC-BRKFST 12/07/17 10/06/22 Multivitamin [Men's Multi-Vitamin] 1 tab PO AC-BRKFST 12/07/17 10/06/22 metFORMIN HCL [Glucophage] 500 mg PO AC-TID 12/07/17 10/06/22 Atorvastatin [Lipitor] 20 mg PO AC-BRKFST 10/06/22 10/06/22 Calcium Carbonate [Calcium] 600 mg PO AC-BRKFST 10/06/22 10/06/22 Levothyroxine Sodium [Synthroid] 112 mcg PO AC-BRKFST 10/06/22 10/06/22 Prostate Supplement 1 cap PO AC-BRKFST 10/06/22 10/06/22 dilTIAZem HCL [dilTIAZem HCL 24Hr 120 mg PO HS 10/06/22 10/06/22 ER (Xr)] Previous Rx's Medication Instructions Recorded Aspirin 81 mg PO DAILY #90 tab 10/09/22 Clopidogrel [Plavix] 75 mg PO AC-BRKFST #90 tab 10/09/22 Allergies Allergy/AdvReac Type Severity Reaction Status Date / Time codeine Allergy Unknown Verified 02/23/23 10:21 Review of Systems ROS Statement: Those systems with pertinent positive or pertinent negative responses have been documented in the HPI. ROS Other: All systems not noted in ROS Statement are negative. Past Medical History Past Medical History: Atrial Fibrillation, Diabetes Mellitus, Thyroid Disorder Additional Past Medical History / Comment(s): stroke with right sided weakness, History of Any Multi-Drug Resistant Organisms: None Reported Past Surgical History: Unable to Obtain, Heart Catheterization With Stent Additional Past Surgical History / Comment(s): 5 cardiac stents placed, back surgery, Past Anesthesia/Blood Transfusion Reactions: No Reported Reaction Date of Last Stent Placement:: 10/11/2021 Past Psychological History: No Psychological Hx Reported Past Alcohol Use History: None Reported Past Drug Use History: None Reported - Past Family History Brother(s) Additional Family Medical History / Comment(s): Parkinson's General Exam - General Exam Comments Initial Comments: GENERAL: Patient is well-developed and well-nourished. Patient is nontoxic and well- hydrated and is in no acute distress. ENT: Neck is soft and supple. No significant lymphadenopathy is noted. Oropharynx is clear. Moist mucous membranes. Neck has full range of motion without eliciting any pain. EYES: The sclera were anicteric and conjunctiva were pink and moist. Extraocular movements were intact and pupils were equal round and reactive to light. Eyelids were unremarkable. PULMONARY: Unlabored respirations. Good breath sounds bilaterally. No audible rales rhonchi or wheezing was noted. CARDIOVASCULAR: There is a regular rate and rhythm without any murmurs gallops or rubs. ABDOMEN: Soft and nontender with normal bowel sounds. No palpable organomegaly was noted. There is no palpable pulsatile mass. SKIN: Skin is clear with no lesions or rashes and otherwise unremarkable. NEUROLOGIC: Patient is alert and oriented x3. Cranial nerves II through XII are grossly intact. Motor and sensory are also intact. Normal speech, volume and content. Symmetrical smile. MUSCULOSKELETAL: Normal extremities with adequate strength and full range of motion. No lower extremity swelling or edema. No calf tenderness. LYMPHATICS: No significant lymphadenopathy is noted PSYCHIATRIC: Normal psychiatric evaluation. Limitations: physical limitation Course Vital Signs 02/23/23 02/23/23 10:17 11:11 Temperature 97.2 F L Pulse Rate 91 Pulse Rate [ 80 Sitting] Pulse Rate [ 100 Standing] Pulse Rate [ 78 Supine] Respiratory 18 Rate Blood Pressure 116/63 Blood Pressure 84/50 [Sitting] Blood Pressure 109/57 [Standing] Blood Pressure 108/61 [Supine] O2 Sat by Pulse 93 L Oximetry Medical Decision Making - Medical Decision Making EKG was interpreted by myself. Shows a sinus rhythm with occasional PAC at [address] interval 291 QRS is 86 QT interval 376 QTC is 410. Patient's EKG shows no ST segment elevation or depression. Was pt. sent in by a medical professional or institution (BRENDA Montiel, CHIROPRACTIC DOCTOR, urgent care, hospital, or snf...) When possible be specific @ -[No] Did you speak to anyone other than the patient for history (EMS, parent, family, police, friend...)? What history was obtained from this source @ -[No] Did you review nursing and triage notes (agree or disagree)? Why? @ -[I reviewed and agree with nursing and triage notes] Were old charts reviewed (outside hosp., previous admission, EMS record, old EKG, old radiological studies, urgent care reports/EKG's, snf records)? Report findings @ -[No old charts were reviewed] Differential Diagnosis (chest pain, altered mental status, abdominal pain women, abdominal pain men, vaginal bleeding, weakness, fever, dyspnea, syncope, headache, dizziness, GI bleed, back pain, seizure, CVA, palpatations, mental health, musculoskeletal)? @ -Differential Dizziness: Benign paroxysmal positional Vertigo, Menieres disease, otitis media, acoustic neuroma, vertebrobasilar insufficiency, cerebellar stroke, encephalitis, hypovolemic, arrhythmia, coronary artery syndrome, anemia, this is not meant to be an all-inclusive list EKG interpreted by me (3pts min.). @ -[As above] X-rays interpreted by me (1pt min.). @ -Chest x-ray was interpreted by myself shows no acute abnormality CT interpreted by me (1pt min.). @ -CT of the brain was interpreted by myself shows no acute abnormality U/S interpreted by me (1pt. min.). @ -[None done] What testing was considered but not performed or refused? (CT, X-rays, U/S, labs)? Why? @ -[None] What meds were considered but not given or refused? Why? @ -[None] Did you discuss the management of the patient with other professionals (professionals i.e. BRENDA Montiel, CHIROPRACTIC DOCTOR, lab, RT, psych nurse, psychiatric social worker supervisor, squeak rattle and leak repairer, teacher, railway patrol officer, human services case manager)? Give summary @ -I spoke with the [facility] hospitalist agreed to admit the patient Was smoking cessation discussed for >3mins.? @ -[No] Was critical care preformed (if so, how long)? @ -[No] Were there social determinants of health that impacted care today? How? (Homelessness, low income, unemployed, alcoholism, drug addiction, transportation, low edu. Level, literacy, decrease access to med. care, care home, rehab)? @ -[No] Was there de-escalation of care discussed even if they declined (Discuss DNR or withdrawal of care, Hospice)? DNR status @ -[No] What co-morbidities impacted this encounter? (DM, HTN, Smoking, COPD, CAD, Cancer, CVA, ARF, Chemo, Hep., AIDS, mental health diagnosis, sleep apnea, morbid obesity)? @ -[None] Was patient admitted / discharged? Hospital course, mention meds given and route, prescriptions, significant lab abnormalities, going to OR and other pert inent info. @ -On initial assessment of the patient patient stated moving his head or sitting up even with sensation that he was floating. Patient states at no time did he feel like he was going to pass out. Patient denied any chest pain or palpitations. Patient denied any recent fever chills per patient denied similar symptoms in the past. Patient states he only started having a little bit of bright red blood in his stool this morning he has had that in the past when he is on Plavix. Undiagnosed new problem with uncertain prognosis? @ -[No] Drug Therapy requiring intensive monitoring for toxicity (Heparin, Nitro, Insulin, Cardizem)? @ -[No] Were any procedures done? @ -[No] Diagnosis/symptom? @ -Vertigo Acute, or Chronic, or Acute on Chronic? @ -Acute Uncomplicated (without systemic symptoms) or Complicated (systemic symptoms)? @ -Uncomplicated Side effects of treatment? @ -[No] Exacerbation, Progression, or Severe Exacerbation? @ -[No] Poses a threat to life or bodily function? How? (Chest pain, [place], [place], pneumonia, PE, COPD, DKA, ARF, appy, cholecystitis, CVA, Diverticulitis, Homicidal, Suicidal, threat to staff... and all critical care pts) @ -[No] Diagnosis/symptom? @ -GI bleed Acute, or Chronic, or Acute on Chronic? @ -Acute Uncomplicated (without systemic symptoms) or Complicated (systemic symptoms)? @ -complicated Side effects of treatment? @ -[none] Exacerbation, Progression, or Severe Exacerbation] @ -[no] Poses a threat to life or bodily function? @ -Yes this could lead to hypoperfusion and end organ dysfunction - Lab Data Result diagrams: 02/23/23 11:00 02/23/23 11:00 Lab Results 02/23/23 02/23/23 02/23/23 Range/Units 10:55 11:00 11:00 WBC 12.9 H (3.8-10.6) k/uL RBC 3.08 L (4.30-5.90) m/uL Hgb 9.7 L (13.0-17.5) gm/dL Hct 29.2 L (39.0-53.0) % MCV 94.9 (80.0-100.0) fL MCH 31.4 (25.0-35.0) pg MCHC 33.1 (31.0-37.0) g/dL RDW 13.3 (11.5-15.5) % Plt Count 347 (150-450) k/uL MPV 8.0 Neutrophils % 86 % Lymphocytes % 10 % Monocytes % 4 % Eosinophils % 0 % Basophils % 0 % Neutrophils # 11.1 H (1.3-7.7) k/uL Lymphocytes # 1.3 (1.0-4.8) k/uL Monocytes # 0.5 (0-1.0) k/uL Eosinophils # 0.0 (0-0.7) k/uL Basophils # 0.0 (0-0.2) k/uL Hypochromasia Slight PT 11.1 (9.0-12.0) sec INR 1.1 (<1.2) APTT 20.2 L (22.0-30.0) sec Sodium (137-145) mmol/L Potassium (3.5-5.1) mmol/L Chloride (98-107) mmol/L Carbon Dioxide (22-30) mmol/L Anion Gap mmol/L BUN (9-20) mg/dL Creatinine (0.66-1.25) mg/dL Est GFR (CKD-EPI)AfAm (>60 ml/min/1.73 sqM) Est GFR (CKD-EPI)NonAf (>60 ml/min/1.73 sqM) Glucose (74-99) mg/dL Calcium (8.4-10.2) mg/dL Magnesium (1.6-2.3) mg/dL Total Bilirubin (0.2-1.3) mg/dL AST (17-59) U/L ALT (4-49) U/L Alkaline Phosphatase (38-126) U/L Troponin I (0.000-0.034) ng/mL Total Protein (6.3-8.2) g/dL Albumin (3.5-5.0) g/dL Blood Type Blood Type Confirm A Positive Blood Type Recheck Bld Type Recheck Status Antibody Screen Spec Expiration Date 02/23/23 02/23/23 02/23/23 Range/Units 11:00 11:00 11:00 WBC (3.8-10.6) k/uL RBC (4.30-5.90) m/uL Hgb (13.0-17.5) gm/dL Hct (39.0-53.0) % MCV (80.0-100.0) fL MCH (25.0-35.0) pg MCHC (31.0-37.0) g/dL RDW (11.5-15.5) % Plt Count (150-450) k/uL MPV Neutrophils % % Lymphocytes % % Monocytes % % Eosinophils % % Basophils % % Neutrophils # (1.3-7.7) k/uL Lymphocytes # (1.0-4.8) k/uL Monocytes # (0-1.0) k/uL Eosinophils # (0-0.7) k/uL Basophils # (0-0.2) k/uL Hypochromasia PT (9.0-12.0) sec INR (<1.2) APTT (22.0-30.0) sec Sodium 136 L (137-145) mmol/L Potassium 5.0 (3.5-5.1) mmol/L Chloride 102 (98-107) mmol/L Carbon Dioxide 22 (22-30) mmol/L Anion Gap 12 mmol/L BUN 36 H (9-20) mg/dL Creatinine 0.93 (0.66-1.25) mg/dL Est GFR (CKD-EPI)AfAm 88 (>60 ml/min/1.73 sqM) Est GFR (CKD-EPI)NonAf 76 (>60 ml/min/1.73 sqM) Glucose 338 H (74-99) mg/dL Calcium 9.0 (8.4-10.2) mg/dL Magnesium 1.7 (1.6-2.3) mg/dL Total Bilirubin 0.9 (0.2-1.3) mg/dL AST 25 (17-59) U/L ALT 24 (4-49) U/L Alkaline Phosphatase 59 (38-126) U/L Troponin I <0.012 (0.000-0.034) ng/mL Total Protein 5.9 L (6.3-8.2) g/dL Albumin 3.5 (3.5-5.0) g/dL Blood Type A Positive Blood Type Confirm Blood Type Recheck No Previous Record Bld Type Recheck Status CABO Indicated Antibody Screen NEGATIVE Spec Expiration Date 02/26/20232299 Disposition Clinical Impression: Vertigo, GI bleed Disposition: ADMITTED IP TO THIS [facility] Referrals: Julia Brasher DO [Primary Care Provider] - 1-2 days Time of Disposition: 12:50
[2023-02-23 11:13] LABS: Basophils % (A) 0 %; Eosinophils % (A) 0 %; HCT 29.2 % (39.0-53.0); HGB 9.7 gm/dL (13.0-17.5); Hypochromasia Slight; Lymphocytes # (A) 1.3 k/uL (1.0-4.8); Lymphocytes % (A) 10 %; MCH 31.4 pg (25.0-35.0); MCHC 33.1 g/dL (31.0-37.0); MCV 94.9 fL (80.0-100.0); Monocytes # (A) 0.5 k/uL (0-1.0); Monocytes % (A) 4 %; Neutrophils # (A) 11.1 k/uL (1.3-7.7); Neutrophils % (A) 86 %; Platelet Count 347 k/uL (150-450); RBC 3.08 m/uL (4.30-5.90); RDW 13.3 % (11.5-15.5); WBC 12.9 k/uL (3.8-10.6)
[2023-02-23 11:22] LABS: Albumin 3.5 g/dL (3.5-5.0); Magnesium 1.7 mg/dL (1.6-2.3); Total Bilirubin 0.9 mg/dL (0.2-1.3); Total Protein 5.9 g/dL (6.3-8.2)
[2023-02-23 11:33] LABS: INR 1.1 (<1.2); Prothrombin Time 11.1 sec (9.0-12.0)
[2023-02-23 11:42] LABS: Partial Thromboplastin Time 20.2 sec (22.0-30.0)
--- NOTE | 2023-02-23 11:45 | XR ---
EXAMINATION TYPE: XR chest 2V DATE OF EXAM: 02/23/2023 COMPARISON: Chest x-ray and CT October 06, 2022 HISTORY: Chest pain TECHNIQUE: Frontal and lateral views of the chest are obtained. FINDINGS: There is no focal air space opacity, pleural effusion, or pneumothorax seen. The cardiac silhouette size is stable and upper limits of normal. The osseous structures are intact. IMPRESSION: No acute process. No significant change from prior.
--- NOTE | 2023-02-23 11:51 | CT ---
EXAMINATION TYPE: CT brain wo con DATE OF EXAM: 02/23/2023 HISTORY: Dizziness, near syncope CT DLP: 1168.4 mGycm. Automated Exposure Control for Dose Reduction was Utilized. TECHNIQUE: CT scan of the head is performed without contrast. COMPARISON: None. FINDINGS: There is no acute intracranial hemorrhage or midline shift identified. There is moderate diffuse ventricular and sulcal prominence consistent with diffuse age-related cerebral atrophy. Ther e is mild to moderate low-attenuation in the periventricular white matter most likely consistent with chronic small vessel ischemic change in patient of this age. Scleral calcification bilateral globes. Mild to moderate mucosal thickening with more focal mucus retention cyst or polyp in the inferior right maxillary sinus. Calcified lesion right ethmoid sinus possible osteoma axial image 12. IMPRESSION: No acute intracranial hemorrhage or midline shift. There is moderate diffuse cerebral a trophy and mild to moderate chronic small vessel ischemic change noted.
[2023-02-23] MEDS ORDERED: MECLIZINE 25 MG TAB PO STA (12:45)
[2023-02-23] MEDS ORDERED: SODIUM CHLORIDE 0.9% 1,000 ML IV ONE (12:58)
[2023-02-23] MEDS ORDERED: HYDROmorphone 0.5 MG/0.5 ML SYRINGE IVP STA (13:07)
[2023-02-23 16:05] LABS: Basophils % (A) 0 %; Eosinophils % (A) 0 %; HCT 25.4 % (39.0-53.0); HGB 8.4 gm/dL (13.0-17.5); Hypochromasia Slight; Lymphocytes # (A) 2.4 k/uL (1.0-4.8); Lymphocytes % (A) 21 %; MCH 30.9 pg (25.0-35.0); MCV 93.6 fL (80.0-100.0); Mean Platelet Volume 7.7; Monocytes # (A) 0.6 k/uL (0-1.0); Monocytes % (A) 6 %; Neutrophils # (A) 7.9 k/uL (1.3-7.7); Neutrophils % (A) 71 %; Platelet Count 335 k/uL (150-450); RBC 2.71 m/uL (4.30-5.90); RDW 13.4 % (11.5-15.5); WBC 11.2 k/uL (3.8-10.6)
--- NOTE | 2023-02-23 18:09 | US ---
EXAMINATION TYPE: US carotid duplex BILAT DATE OF EXAM: 02/23/2023 COMPARISON: NONE CLINICAL INDICATION: Male, 82 years old with history of Dizziness; GI bleed, dizziness, stroke 20 yea rs ago TECHNIQUE: Carotid duplex ultrasound examination. Indirect Doppler criteria was utilized. FINDINGS: EXAM MEASUREMENTS: RIGHT: Peak Systolic Velocity (PSV) cm/sec ----- Right CCA: 130 ----- Right ICA: 203 ----- Right ECA: 151 ICA/CCA ratio: 1.6 RIGHT: End Diastole cm/sec ----- Right CCA: 36.2 ----- Right ICA: 40.8 ----- Right ECA: 12.7 LEFT: Peak Systolic Velocity (PSV) cm/sec ----- Left CCA: 122 ----- Left ICA: 292 ----- Left ECA: 120 ICA/CCA ratio: 2.4 LEFT: End Diastole cm/sec ----- Left CCA: 27.8 ----- Left ICA: 70.9 ----- Left ECA: 18.9 VERTEBRALS (direction of flow): Right Vertebral: Antegrade Left Vertebral: Antegrade Rhythm: Normal [employer] APPRENTICE NOTES: Increased velocities noted at left proximal ICA. Heterogeneous plaque bilateral bu lbs/ICA, with more on the left. IMPRESSION: 1. Elevated peak systolic velocities of the left internal carotid artery with sonographic findings avila ggesting at least 50-69% stenosis. 2. Elevated peak systolic velocities of the right internal carotid artery with sonographic findings s uggesting less than 50% stenosis
[2023-02-23 20:36] LABS: Glucose,Whole Blood 152 mg/dL (70-110)
[2023-02-23 21:26] LABS: Appearance,Urine Clear (Clear); Bilirubin,Urine Negative (Negative); Blood,Urine Negative (Negative); Color,Urine Light Yellow; Glucose,Urine (UA) 3+ (Negative); Ketones,Urine Negative (Negative); Leukocyte Esterase,Urine Negative (Negative); Nitrite,Urine Negative (Negative); PH, Urine 5.5 (5.0-8.0); Protein,Urine Negative (Negative); Specific Gravity,Urine 1.017 (1.001-1.035); Urobilinogen,Urine <2.0 mg/dL (<2.0)
--- NOTE | 2023-02-23 22:10 | HP ---
HISTORY AND PHYSICAL CHIEF COMPLAINT: Dizziness and GI bleed. HISTORY OF PRESENT ILLNESS: This 82-year-old gentleman with past medical history of multiple medical problems including , atrial ablation, followed by Dr. Brasher. The patient apparently had some GI bleed this morning and felt dizzy also. The patient came to [facility] treatment. The patient is on antiplatelet agents. There is no history of any fever, rigors, or chills at this time. PAST MEDICAL HISTORY: Reviewed, include atrial fibrillation, diabetes mellitus type 2. Rest of the history and rest of the chart is also reviewed. HOME MEDICATIONS: Reviewed, include Cardizem. The rest of the medication and doses are reviewed. ALLERGIES: Codeine. FAMILY HISTORY: History of Parkinson's in family. SOCIAL HISTORY: Previous smoking. REVIEW OF SYSTEMS: Fourteen-point review is negative except as mentioned earlier. PHYSICAL EXAMINATION: VITAL SIGNS: Pulse is 80, blood pressure is respiration 18. HEENT: Conjunctivae normal. NECK: No jugular venous distention. CARDIAC: n RESPIRATION: Breath sounds diminished at the bases. No rhonchi. No crackles. ABDOMEN: Soft, nontender. LEGS: No edema. NERVOUS SYSTEM: No focal deficit. SKIN: No LABORATORY DATA: Reviewed. WBC 12.99, hemoglobin 9.7. ASSESSMENT: 1. Acute lower GI bleeding. 2. Dizziness, possibly transient ischemic attack. 3. Increased WBC. 4. Hyponatremia. 5. History of atrial fibrillation. 6. Diabetes mellitus, type 2. 7. Multiple medical issues. RECOMMENDATION: This 82-year-old gentleman, who presented with multiple complex medical issues, we will monitor the patient closely. Recommend Neurology, Gastroenterology, Cardiology consultations. Hold anticoagulants at this time. Complete neurovascular workup. Resume the rest of the home medications. Prognosis guarded. Discussed with the patient and family at length and further recommendations to follow. MMODL / IJN: [id number] / TANYA
[2023-02-23 23:09] LABS: HCT 23.8 % (39.0-53.0); Hypochromasia Slight; MCH 31.5 pg (25.0-35.0); MCHC 33.4 g/dL (31.0-37.0); MCV 94.3 fL (80.0-100.0); Mean Platelet Volume 8.6; Platelet Count 324 k/uL (150-450); RBC 2.52 m/uL (4.30-5.90); RDW 13.6 % (11.5-15.5); WBC 12.7 k/uL (3.8-10.6)
[2023-02-24 06:15] LABS: Glucose,Whole Blood 157 mg/dL (70-110)
[2023-02-24] MEDS: DILTIAZEM CD 120 MG CAP.ER.24H PO SCH (06:47)
[2023-02-24] MEDS: LEVOTHYROXINE 112 MCG TAB PO SCH (06:47)
[2023-02-24] MEDS: CALCIUM CARBONATE 500 MG CHEWABLE PO SCH (06:47)
[2023-02-24] MEDS: ATORVASTATIN 10 MG TAB PO SCH (06:47)
[2023-02-24] MEDS: MULTIVITAMINS, THERA 1 EACH TAB PO SCH (06:47)
[2023-02-24 08:24] LABS: Basophils % (A) 0 %; Eosinophils # (A) 0.2 k/uL (0-0.7); Eosinophils % (A) 2 %; HCT 23.5 % (39.0-53.0); HGB 7.7 gm/dL (13.0-17.5); Hypochromasia Slight; Lymphocytes # (A) 2.1 k/uL (1.0-4.8); Lymphocytes % (A) 22 %; MCH 30.6 pg (25.0-35.0); MCHC 32.6 g/dL (31.0-37.0); MCV 93.9 fL (80.0-100.0); Mean Platelet Volume 7.8; Monocytes # (A) 0.5 k/uL (0-1.0); Monocytes % (A) 5 %; Neutrophils # (A) 6.5 k/uL (1.3-7.7); Neutrophils % (A) 68 %; Platelet Count 307 k/uL (150-450); RBC 2.51 m/uL (4.30-5.90); WBC 9.7 k/uL (3.8-10.6)
[2023-02-24 08:34] LABS: African American GFR (CKD) >90 (>60 ml/min/1.73 sqM); Anion Gap 8 mmol/L; Blood Urea Nitrogen 32 mg/dL (9-20); Calcium 8.4 mg/dL (8.4-10.2); Carbon Dioxide 24 mmol/L (22-30); Chloride 107 mmol/L (98-107); Glucose 144 mg/dL (74-99); Non-African American GFR(CKD) 84 (>60 ml/min/1.73 sqM); Potassium 4.2 mmol/L (3.5-5.1); Sodium 139 mmol/L (137-145)
[2023-02-24] MEDS: GLIMEPIRIDE 4 MG TAB PO SCH (09:35)
--- NOTE | 2023-02-24 09:57 | P.GSCN ---
History of Present Illness Consult date: 02/24/23 Reason for Consult: GI bleed History of present illness: 82-year-old male came to the ER yesterday complaining of dizziness. Patient had some bright red blood in his stool yesterday morning. He has had some black stools apparently a week ago and one month ago. Patient does admit to taking Pepto-Bismol at times. Some nausea. He had some shortness of breath as well. He was found to be anemic. Hemoglobin this morning 7.7 from 8.0. Hemoglobin in October was 13.9. States he has never had an upper or lower endoscopy. He is on Plavix after having 5 cardiac stents in the past. Last stent was placed in October. Plavix is held currently. Review of Systems The patient denies any acute changes in vision or hearing, no dysphagia or odynophagia, no chest pain, no dysuria or hematuria, no headache, no runny nose, no unexplained weight loss Past Medical History Past Medical History: Atrial Fibrillation, Diabetes Mellitus, Thyroid Disorder Additional Past Medical History / Comment(s): stroke with right sided weakness, History of Any Multi-Drug Resistant Organisms: None Reported Past Surgical History: Heart Catheterization With Stent Additional Past Surgical History / Comment(s): 5 cardiac stents placed, back surgery, Past Anesthesia/Blood Transfusion Reactions: No Reported Reaction Date of Last Stent Placement:: 10/11/2021 Past Psychological History: No Psychological Hx Reported Smoking Status: Former smoker Past Alcohol Use History: None Reported Past Drug Use History: None Reported - Past Family History Brother(s) Family Medical History: Myocardial Infarction ([place]) Additional Family Medical History / Comment(s): Parkinson's Mother Family Medical History: Cancer Father Family Medical History: Renal Disease Medications and Allergies Home Medications Medication Instructions Recorded Confirmed Type Glimepiride [Amaryl] 4 mg PO AC-BRKFST 12/07/17 02/23/23 History Multivitamin [Men's Multi-Vitamin] 1 tab PO AC-BRKFST 12/07/17 02/23/23 History metFORMIN HCL [Glucophage] 500 mg PO AC-TID 12/07/17 02/23/23 History Calcium Carbonate [Calcium] 600 mg PO AC-BRKFST 10/06/22 02/23/23 History Levothyroxine Sodium [Synthroid] 112 mcg PO AC-BRKFST 10/06/22 02/23/23 History Prostate Supplement 1 cap PO AC-BRKFST 10/06/22 02/23/23 History dilTIAZem HCL [dilTIAZem HCL 24Hr 120 mg PO AC-BRKFST 10/06/22 02/23/23 History ER (Xr)] Clopidogrel [Plavix] 75 mg PO AC-BRKFST #90 tab 10/09/22 02/23/23 Rx Aspirin 81 mg PO AC-BRKFST 02/23/23 02/23/23 History Atorvastatin [Lipitor] 10 mg PO AC-BRKFST 02/23/23 02/23/23 History Allergies Allergy/AdvReac Type Severity Reaction Status Date / Time codeine Allergy Unknown Verified 02/23/23 13:16 Surgical - Exam Vital Signs Temp Pulse Resp BP Pulse Ox 97.2 F L 91 18 116/63 93 L 02/23/23 10:17 02/23/23 10:17 02/23/23 10:17 02/23/23 10:17 02/23/23 10:17 Physical exam: General: Well-developed, well-nourished HEENT: Normocephalic, sclerae nonicteric Abdomen: Nontender, nondistended Extremities: No edema Neuro: Alert and oriented Results - Labs 02/24/23 08:06 02/24/23 08:06 Abnormal Lab Results - Last 24 Hours (Table) 02/23/23 02/23/23 02/23/23 Range/Units 11:00 11:00 11:00 WBC 12.9 H (3.8-10.6) k/uL RBC 3.08 L (4.30-5.90) m/uL Hgb 9.7 L (13.0-17.5) gm/dL Hct 29.2 L (39.0-53.0) % Neutrophils # 11.1 H (1.3-7.7) k/uL APTT 20.2 L (22.0-30.0) sec Sodium 136 L (137-145) mmol/L BUN 36 H (9-20) mg/dL Glucose 338 H (74-99) mg/dL POC Glucose (mg/dL) (70-110) mg/dL Total Protein 5.9 L (6.3-8.2) g/dL Urine Glucose (UA) (Negative) Crossmatch 02/23/23 02/23/23 02/23/23 Range/Units 11:00 15:43 20:34 WBC 11.2 H (3.8-10.6) k/uL RBC 2.71 L (4.30-5.90) m/uL Hgb 8.4 L (13.0-17.5) gm/dL Hct 25.4 L (39.0-53.0) % Neutrophils # 7.9 H (1.3-7.7) k/uL APTT (22.0-30.0) sec Sodium (137-145) mmol/L BUN (9-20) mg/dL Glucose (74-99) mg/dL POC Glucose (mg/dL) 152 H (70-110) mg/dL Total Protein (6.3-8.2) g/dL Urine Glucose (UA) (Negative) Crossmatch See Detail 02/23/23 02/23/23 02/24/23 Range/Units 20:59 22:56 06:13 WBC 12.7 H (3.8-10.6) k/uL RBC 2.52 L (4.30-5.90) m/uL Hgb 8.0 L (13.0-17.5) gm/dL Hct 23.8 L (39.0-53.0) % Neutrophils # (1.3-7.7) k/uL APTT (22.0-30.0) sec Sodium (137-145) mmol/L BUN (9-20) mg/dL Glucose (74-99) mg/dL POC Glucose (mg/dL) 157 H (70-110) mg/dL Total Protein (6.3-8.2) g/dL Urine Glucose (UA) 3+ H (Negative) Crossmatch 02/24/23 02/24/23 Range/Units 08:06 08:06 WBC (3.8-10.6) k/uL RBC 2.51 L (4.30-5.90) m/uL Hgb 7.7 L (13.0-17.5) gm/dL Hct 23.5 L (39.0-53.0) % Neutrophils # (1.3-7.7) k/uL APTT (22.0-30.0) sec Sodium (137-145) mmol/L BUN 32 H (9-20) mg/dL Glucose 144 H (74-99) mg/dL POC Glucose (mg/dL) (70-110) mg/dL Total Protein (6.3-8.2) g/dL Urine Glucose (UA) (Negative) Crossmatch Diabetes panel 02/23/23 02/24/23 Range/Units 11:00 08:06 Sodium 136 L 139 (137-145) mmol/L Potassium 5.0 4.2 (3.5-5.1) mmol/L Chloride 102 107 (98-107) mmol/L Carbon Dioxide 22 24 (22-30) mmol/L BUN 36 H 32 H (9-20) mg/dL Creatinine 0.93 0.77 (0.66-1.25) mg/dL Glucose 338 H 144 H (74-99) mg/dL Calcium 9.0 8.4 (8.4-10.2) mg/dL AST 25 (17-59) U/L ALT 24 (4-49) U/L Alkaline Phosphatase 59 (38-126) U/L Total Protein 5.9 L (6.3-8.2) g/dL Albumin 3.5 (3.5-5.0) g/dL Calcium panel 02/23/23 02/24/23 Range/Units 11:00 08:06 Calcium 9.0 8.4 (8.4-10.2) mg/dL Albumin 3.5 (3.5-5.0) g/dL Pituitary panel 02/23/23 02/24/23 Range/Units 11:00 08:06 Sodium 136 L 139 (137-145) mmol/L Potassium 5.0 4.2 (3.5-5.1) mmol/L Chloride 102 107 (98-107) mmol/L Carbon Dioxide 22 24 (22-30) mmol/L BUN 36 H 32 H (9-20) mg/dL Creatinine 0.93 0.77 (0.66-1.25) mg/dL Glucose 338 H 144 H (74-99) mg/dL Calcium 9.0 8.4 (8.4-10.2) mg/dL Adrenal panel 02/23/23 02/24/23 Range/Units 11:00 08:06 Sodium 136 L 139 (137-145) mmol/L Potassium 5.0 4.2 (3.5-5.1) mmol/L Chloride 102 107 (98-107) mmol/L Carbon Dioxide 22 24 (22-30) mmol/L BUN 36 H 32 H (9-20) mg/dL Creatinine 0.93 0.77 (0.66-1.25) mg/dL Glucose 338 H 144 H (74-99) mg/dL Calcium 9.0 8.4 (8.4-10.2) mg/dL Total Bilirubin 0.9 (0.2-1.3) mg/dL AST 25 (17-59) U/L ALT 24 (4-49) U/L Alkaline Phosphatase 59 (38-126) U/L Total Protein 5.9 L (6.3-8.2) g/dL Albumin 3.5 (3.5-5.0) g/dL Assessment and Plan (1) GI bleed Narrative/Plan: 82-year-old male with GI bleed. Patient with significant drop in hemoglobin compared to his October values. Begin clear liquid diet. Begin IV Protonix. Will schedule for upper and lower endoscopy tomorrow. Hold Plavix for now. Current Visit: Yes Status: Acute Code(s): K92.2 - GASTROINTESTINAL HEMORRHAGE, UNSPECIFIED SNOMED Code(s): 39554619
[2023-02-24] MEDS ORDERED: FUROSEMIDE 10 MG/ML 2 ML VIAL IV ONE (10:00)
[2023-02-24] MEDS ORDERED: DEXTROSE 50% SYRINGE 50 ML IVP PRN ×2 (10:44)
[2023-02-24 11:49] LABS: Glucose,Whole Blood 172 mg/dL (70-110)
--- NOTE | 2023-02-24 11:58 | P.CRDCN ---
History of Present Illness Consult date: 02/24/23 Consult reason: atrial fibrillation History of present illness: History of present illness: THis is an 82-year-old male patient of Dr. Berger with a past medical history significant for coronary artery disease with a prior stenting with unknown details but most recent stenting was done in October of this year in the left circumflex by Dr. Winters, diabetes and hypertension and dyslipidemia. We requested to see the patient for consult for further evaluation of atrial fibrillation. Patient states he came into the hospital due to feeling dizzy and also had blood in his stool that was bright red which started yesterday morning. He denies any abdominal pain and no nausea. No chest pain, a little shortness of breath last week. He denies any palpitations. He states he has had black stools on 2 previous occasions and had stopped Plavix for 1 day with resolution of the rectal bleeding. When asked about atrial fibrillation. He states that he did have a monitor placed for 1 month and he was told he had an irregular beat but he has never heard the words atrial fibrillation and he has not been on anticoagulation. Reviewed previous hospitalizations and patient had no evidence of atrial fibrillation. EKG sinus rhythm, telemetry sinus rhythm Chest x-ray: No acute process. CAT scan of the brain: No acute intracranial hemorrhage or midline shift. Moderate diffuse cerebral atrophy and mild to moderate chronic small vessel ischemic change. Carotid ultrasound revealed increased velocities in the left proximal ICA at least 50-69% stenosis. Less than 50% stenosis on the right internal carotid artery WBC 9.7, hemoglobin 7.7, platelet count 307. Electrolytes normal. BUN 32 creatinine 0.77. Blood sugar 157. Liver function tests are normal. Magnesium 1.7. Troponin negative 1. Urinalysis 3+ glucose. Home cardiac medications: Aspirin 81 mg daily, atorvastatin 10 mg with breakfast, Plavix 75 mg daily, Cardizem XL R, 120 mg daily, levothyroxine 112 g daily Cardiac catheterization 10/08/2022 revealed mild disease in the left main. Left circumflex is a 40-50% lesion. OM1 small caliber vessel with mild diffuse disease. Circumflex and PDA branch of range of 70-80%. PDA branch of the left circumflex appears to have mild disease only. LAD reveals mild to moderate lesion of 40-50% range. Mild disease in the diagonal branch. Patient underwent successful stenting of the left circumflex. Echocardiogram 10/2022 revealed normal left ventricular dimension and systolic function. Review Of Systems: At the time of my evaluation: Constitutional: No fever, no chills. No weakness, fatigue or lethargy. EENT: No headache. No dizziness. Lungs: No shortness of breath, cough, no sputum production. No wheezing. Cardiovascular: No chest pain, no lower extremity edema. No palpitations. No paroxysmal nocturnal dyspnea. No orthopnea. No lightheadedness or dizziness. No syncopal episodes. Abdominal: No abdominal pain. No nausea, vomiting. No diarrhea. No constipation. Reports bloody or tarry stools. Genitourinary: No dysuria.. No urinary retention. Musculoskeletal: No myalgias. No muscle weakness, no frequent falls. No back pain. No neck pain. Integumentary: No wounds. No rash. No unusual bruising. Neurologic: No aphasia. No facial droop. No change in mentation. No head injury. No headache. Physical examination: Gen: This is an 82-year-old male. He is resting in bed and appears to be comfortable and in no acute distress] VS: reviewed HEENT: Head is atraumatic, normocephalic. Pupils equal, round. Sclerae is anicteric. NECK: Supple. No JVD. . LUNGS: Clear to auscultation. No wheezes or rhonchi. No intercostal retractions. HEART: Regular rate and rhythm. No murmur. ABDOMEN: Soft No tenderness. EXTREMITIES: No pedal edema. No calf tenderness. NEUROLOGICAL: Patient is awake, alert and oriented x3. Assessment: No evidence of atrial fibrillation Anemia with rectal bleeding Coronary artery disease with previous stenting, most recent October 2022 of the left circumflex by Dr. Winters Hypertension Hyperlipidemia Diabetes Plan: Stop aspirin and Plavix Continue patient's home cardiac medications Obtain 2-D echocardiogram and Doppler study to assess cardiac structure and fu nction Further recommendations to follow based upon clinical course Thank you kindly for this consultation. Nurse practitioner note has been reviewed, I agree with documented findings and plan of care. Patient was seen and examined. Past Medical History Past Medical History: Atrial Fibrillation, Diabetes Mellitus, Thyroid Disorder Additional Past Medical History / Comment(s): stroke with right sided weakness, History of Any Multi-Drug Resistant Organisms: None Reported Past Surgical History: Heart Catheterization With Stent Additional Past Surgical History / Comment(s): 5 cardiac stents placed, back surgery, Past Anesthesia/Blood Transfusion Reactions: No Reported Reaction Date of Last Stent Placement:: 10/11/2021 Past Psychological History: No Psychological Hx Reported Smoking Status: Former smoker Past Alcohol Use History: None Reported Past Drug Use History: None Reported - Past Family History Brother(s) Family Medical History: Myocardial Infarction ([place]) Additional Family Medical History / Comment(s): Parkinson's Mother Family Medical History: Cancer Father Family Medical History: Renal Disease Medications and Allergies Home Medications Medication Instructions Recorded Confirmed Type Glimepiride [Amaryl] 4 mg PO AC-BRKFST 12/07/17 02/23/23 History Multivitamin [Men's Multi-Vitamin] 1 tab PO AC-BRKFST 12/07/17 02/23/23 History metFORMIN HCL [Glucophage] 500 mg PO AC-TID 12/07/17 02/23/23 History Calcium Carbonate [Calcium] 600 mg PO AC-BRKFST 10/06/22 02/23/23 History Levothyroxine Sodium [Synthroid] 112 mcg PO AC-BRKFST 10/06/22 02/23/23 History Prostate Supplement 1 cap PO AC-BRKFST 10/06/22 02/23/23 History dilTIAZem HCL [dilTIAZem HCL 24Hr 120 mg PO AC-BRKFST 10/06/22 02/23/23 History ER (Xr)] Clopidogrel [Plavix] 75 mg PO AC-BRKFST #90 tab 10/09/22 02/23/23 Rx Aspirin 81 mg PO AC-BRKFST 02/23/23 02/23/23 History Atorvastatin [Lipitor] 10 mg PO AC-BRKFST 02/23/23 02/23/23 History Allergies Allergy/AdvReac Type Severity Reaction Status Date / Time codeine Allergy Unknown Verified 02/23/23 13:16 Physical Exam Vitals: Vital Signs Temp Pulse Pulse Pulse Pulse Resp BP 02/24/23 06:46 93 02/24/23 03:20 98.1 F 90 16 02/23/23 23:14 97.9 F 91 16 02/23/23 20:33 91 16 02/23/23 20:12 92 18 134/63 02/23/23 17:52 93 18 112/55 02/23/23 16:05 92 18 124/62 02/23/23 15:05 90 18 122/68 02/23/23 11:11 80 100 78 02/23/23 10:17 97.2 F L 91 18 116/63 BP BP BP Pulse Ox 02/24/23 06:46 107/63 02/24/23 03:20 101/55 93 L 02/23/23 23:14 124/61 93 L 02/23/23 20:33 128/62 93 L 02/23/23 20:12 95 02/23/23 17:52 94 L 02/23/23 16:05 96 02/23/23 15:05 97 02/23/23 11:11 84/50 109/57 108/61 02/23/23 10:17 93 L Intake and Output 02/23/23 02/24/23 02/24/23 22:59 06:59 14:59 Output Total 525 400 475 Balance -525 -400 -475 Output: Urine 525 400 475 Other: Voiding Method Urinal # Voids 1 1 Weight 77.111 kg Results 02/24/23 08:06 02/24/23 08:06 Cardiac Enzymes 02/23/23 02/23/23 Range/Units 11:00 11:00 AST 25 (17-59) U/L Troponin I <0.012 (0.000-0.034) ng/mL Coagulation 02/23/23 Range/Units 11:00 PT 11.1 (9.0-12.0) sec APTT 20.2 L (22.0-30.0) sec CBC 02/23/23 02/23/23 02/23/23 Range/Units 11:00 15:43 22:56 WBC 12.9 H 11.2 H 12.7 H (3.8-10.6) k/uL RBC 3.08 L 2.71 L 2.52 L (4.30-5.90) m/uL Hgb 9.7 L 8.4 L 8.0 L (13.0-17.5) gm/dL Hct 29.2 L 25.4 L 23.8 L (39.0-53.0) % Plt Count 347 335 324 (150-450) k/uL Comprehensive Metabolic Panel 02/23/23 Range/Units 11:00 Sodium 136 L (137-145) mmol/L Potassium 5.0 (3.5-5.1) mmol/L Chloride 102 (98-107) mmol/L Carbon Dioxide 22 (22-30) mmol/L BUN 36 H (9-20) mg/dL Creatinine 0.93 (0.66-1.25) mg/dL Glucose 338 H (74-99) mg/dL Calcium 9.0 (8.4-10.2) mg/dL AST 25 (17-59) U/L ALT 24 (4-49) U/L Alkaline Phosphatase 59 (38-126) U/L Total Protein 5.9 L (6.3-8.2) g/dL Albumin 3.5 (3.5-5.0) g/dL Current Medications Generic Name Dose Route Start Last Admin Trade Name Freq PRN Reason Stop Dose Admin Atorvastatin Calcium 10 mg 02/24/23 07:30 02/24/23 06:47 Atorvastatin 10 Mg Tab PO 10 mg AC-BRKFST STACI Administration Calcium Carbonate/Glycine 500 mg 02/24/23 07:30 02/24/23 06:47 Calcium Carbonate 500 Mg Chewable PO 500 mg AC-BRKFST STACI Administration Diltiazem HCl 120 mg 02/24/23 07:30 02/24/23 06:47 Diltiazem Cd 120 Mg Cap.Er.24h PO 120 mg AC-BRKFST STACI Administration Glimepiride 4 mg 02/24/23 07:30 Glimepiride 4 Mg Tab PO AC-BRKFST STACI Levothyroxine Sodium 112 mcg 02/24/23 07:30 02/24/23 06:47 Levothyroxine 112 Mcg Tab PO 112 mcg AC-BRKFST STACI Administration Multivitamins 1 each 02/24/23 07:30 02/24/23 06:47 Multivitamins, Thera 1 Each Tab PO 1 each AC-BRKFST STACI Administration Intake and Output 02/23/23 02/24/23 02/24/23 22:59 06:59 14:59 Output Total 525 400 475 Balance -525 -400 -475 Output: Urine 525 400 475 Other: Voiding Method Urinal # Voids 1 1 Weight 77.111 kg 02/23/23 22:56 02/23/23 11:00
[2023-02-24] MEDS: PANTOPRAZOLE 40 MG/10 ML VIAL IVP SCH ×2 (12:56→20:58)
[2023-02-24] MEDS: INSULIN ASPART (NovoLOG) 100 UNIT/ML VIAL SQ SCH ×3 (12:57→20:58)
[2023-02-24] MEDS ORDERED: PEG 3350 (236 GM/BTL) + LYTES 4,000 ML BOTTLE PO ONE (14:48)
[2023-02-24 16:55] LABS: Glucose,Whole Blood 186 mg/dL (70-110)
[2023-02-24 20:08] LABS: Glucose,Whole Blood 254 mg/dL (70-110)
[2023-02-24] MEDS ORDERED: SODIUM CHLORIDE 0.9% 500 ML 250 ML IV ONE (20:45)
[2023-02-24] MEDS: SODIUM CHLORIDE 0.9% 1,000 ML IV SCH (20:59)
--- NOTE | 2023-02-25 00:08 | P.CNNES ---
History of Present Illness Consult date: 02/24/23 Requesting physician: Michelle Recinos Reason for Consult: Dizziness History of Present Illness: Patient is a 82-year-old right-handed male, came to the hospital yesterday at 10:13 AM for dizziness. Patient states that yesterday he woke up in the morning, stood up out of bed and felt dizzy. He went to the bathroom and while using the restroom, patient had bright red blood per rectum, which happened twice. Patient states that for the last 3 weeks, if he goes to the bathroom and strains, he gets dizzy. He describes dizziness as if his head will explode. After a few minutes, he is fine. His dizziness is lightheadedness with some spinning sensation as well. He denies any passing out. No history of seizures. Patient has never had any dizzy spells before these 3 weeks. Vital signs on arrival blood pressure 116/63, pulse rate 91 temperature 97.2. Patient had orthostatics, in which his supine blood pressure 108/61, pulse 78. Sitting up was 84/50 with pulse of 80 and on standing was 109/57 with pulse of 100. Blood tests showed WBC 12.9 hemoglobin 9.7, platelets 347. PT/PTT normal, sodium 136 potassium 5.0, renal functions, hepatic panel normal, troponin negative. UA negative. CT head revealed no acute intracranial process. There is moderate diffuse cerebral atrophy and [id number] chronic small vessel ischemic change noted. I personally reviewed CT head, agree with the findings. Chest x-ray showed no acute process. EKG shows sinus rhythm with occasional supraventricular premature complexes. Patient had been seen by neurology service previously on 12/07/2017 for slurred speech and TIA. Patient has history of acute stroke, diabetes. Current medications include multivitamin, metformin, Amaryl, diltiazem, calcium, levothyroxine, Plavix 75 mg, aspirin 81 mg and Lipitor 10 mg. Patient states that he had history of a stroke with residual right hemiparesis that happened in 2002 when he was in [place]. He was hospitalized for a month. Patient has history of diabetes for 40 years. Patient also has history of peripheral neuropathy from diabetes with numbness of the toes and feet as well as fingers of the hands. Patient has history of smoking 1 pack per day for 45 years, quit in 2002 (age 62). Patient denies any alcohol use. Review of Systems Constitutional: Denies chills, Denies fever Eyes: denies blurred vision, denies diplopia, denies pain Ears: deny: decreased hearing, ear discharge Ears, nose, mouth and throat: Reports vertigo, Denies headache, Denies sore throat Cardiovascular: Denies chest pain, Denies shortness of breath Respiratory: Denies cough, Denies excessive sputum Gastrointestinal: Reports BRBPR, Reports diarrhea, Denies abdominal pain, Denies nausea, Denies vomiting Musculoskeletal: Denies myalgias, Denies neck pain Integumentary: Denies pruritus, Denies rash Neurological: Reports as per HPI Psychiatric: Denies anxiety, Denies depression Endocrine: Reports fatigue, Denies weight change Past Medical History Past Medical History: Atrial Fibrillation, Diabetes Mellitus, Thyroid Disorder Additional Past Medical History / Comment(s): stroke with right sided weakness, History of Any Multi-Drug Resistant Organisms: None Reported Past Surgical History: Heart Catheterization With Stent Additional Past Surgical History / Comment(s): 5 cardiac stents placed, back surgery, Past Anesthesia/Blood Transfusion Reactions: No Reported Reaction Date of Last Stent Placement:: 10/11/2021 Past Psychological History: No Psychological Hx Reported Smoking Status: Former smoker Past Alcohol Use History: None Reported Past Drug Use History: None Reported - Past Family History Brother(s) Family Medical History: Myocardial Infarction ([place]) Additional Family Medical History / Comment(s): Parkinson's Mother Family Medical History: Cancer Father Family Medical History: Renal Disease Medications and Allergies Home Medications Medication Instructions Recorded Confirmed Type Glimepiride [Amaryl] 4 mg PO AC-BRKFST 12/07/17 02/23/23 History Multivitamin [Men's Multi-Vitamin] 1 tab PO AC-BRKFST 12/07/17 02/23/23 History metFORMIN HCL [Glucophage] 500 mg PO AC-TID 12/07/17 02/23/23 History Calcium Carbonate [Calcium] 600 mg PO AC-BRKFST 10/06/22 02/23/23 History Levothyroxine Sodium [Synthroid] 112 mcg PO AC-BRKFST 10/06/22 02/23/23 History Prostate Supplement 1 cap PO AC-BRKFST 10/06/22 02/23/23 History dilTIAZem HCL [dilTIAZem HCL 24Hr 120 mg PO AC-BRKFST 10/06/22 02/23/23 History ER (Xr)] Aspirin 81 mg PO AC-BRKFST 02/23/23 02/23/23 History Atorvastatin [Lipitor] 10 mg PO AC-BRKFST 02/23/23 02/23/23 History Clopidogrel [Plavix] 75 mg PO DAILY #90 tablet 02/27/23 Rx Omeprazole [PriLOSEC] 40 mg PO BID #60 cap 02/27/23 Rx Allergies Allergy/AdvReac Type Severity Reaction Status Date / Time codeine Allergy Unknown Verified 02/23/23 13:16 Physical Examination - Vital Signs Vital Signs: Vital Signs Temp Pulse Pulse Resp BP BP BP 02/24/23 14:36 97.3 F L 74 16 114/57 02/24/23 14:16 97.5 F L 69 16 113/56 02/24/23 14:06 98.4 F 75 16 107/55 02/24/23 09:48 02/24/23 09:30 98.1 F 98 16 131/61 02/24/23 06:46 93 107/63 02/24/23 03:20 98.1 F 90 16 101/55 02/23/23 23:14 97.9 F 91 16 124/61 02/23/23 20:33 91 16 128/62 02/23/23 20:12 92 18 134/63 02/23/23 17:52 93 18 112/55 02/23/23 16:05 92 18 124/62 02/23/23 15:05 90 18 122/68 Pulse Ox 02/24/23 14:36 97 02/24/23 14:16 97 02/24/23 14:06 02/24/23 09:48 94 L 02/24/23 09:30 97 02/24/23 06:46 02/24/23 03:20 93 L 02/23/23 23:14 93 L 02/23/23 20:33 93 L 02/23/23 20:12 95 02/23/23 17:52 94 L 02/23/23 16:05 96 02/23/23 15:05 97 Intake and Output 02/23/23 02/24/23 02/24/23 22:59 06:59 14:59 Intake Total 0 Output Total 525 400 870 Balance -388 -266 -836 Intake: Blood Product 0 Rc As-1 Unit 0 [id number] Output: Urine 525 400 875 Other: Voiding Method Urinal Urinal # Voids 1 1 Weight 77.111 kg Patient is an elderly male, very pleasant, in no acute distress. Patient is alert awake oriented to time place and person. He states it is 02/21/2023. Slightly off for the date. Speech and language functions are normal. Patient can name and repeat very well. No aphasia or dysarthria. Attention, concentration and fund of knowledge is adequate. On cranial nerve examination, pupils are equal, round and reacting to light, visual muñoz are full on confrontation, with no neglect on double simultaneous stimulation. Extraocular muscles are intact with no nystagmus. Face is symmetric, tongue protrudes to the midline. Palatal elevation and sensation normal, hearing and shoulder shrug normal, facial sensation normal. On muscle strength testing, there is very minimal right pronation, no drift. On muscle strength testing (right/left) deltoid 5/5, biceps 5/5, coffee attendant 5-/5, triceps 4+5-/5. Patient is very spastic in the right arm, with hand in the coffee attendant and also not able to fully extend his elbow. In the lower limbs hip flexion 4/5, ankle dorsiflexion 2/5. Deep tendon reflexes are (right/left) biceps 2/1+, brachioradialis 2/1+, knee 3/2, plantar is flat on the right, down on the left. Patient uses for brace for the right. Sensory to touch is decreased in the right arm and right leg, but equal on the face bilaterally. Cerebellar function showed ataxia for [id number] testing on the right. Tone is increased on the right side with significant spasticity, and bulk of muscles normal. Gait deferred.. On general examination, there is no carotid bruit or murmur, S1-S2 audible. Chest is clear on consultation. Abdomen is soft nontender. No organomegaly, bowel sounds present. Peripheral pulses are present. No edema. Results - Laboratory Findings CBC and BMP: 02/27/23 09:11 02/25/23 06:35 Abnormal Lab Findings: Abnormal Labs 05/02/23/23 02/23/23 11:00 11:00 11:00 WBC 12.9 H RBC 3.08 L Hgb 9.7 L Hct 29.2 L Neutrophils # 11.1 H APTT 20.2 L Sodium 136 L BUN 36 H Glucose 338 H POC Glucose (mg/dL) Total Protein 5.9 L Urine Glucose (UA) Crossmatch 02/23/23 02/23/23 02/23/23 11:00 15:43 20:34 WBC 11.2 H RBC 2.71 L Hgb 8.4 L Hct 25.4 L Neutrophils # 7.9 H APTT Sodium BUN Glucose POC Glucose (mg/dL) 152 H Total Protein Urine Glucose (UA) Crossmatch See Detail 02/23/23 02/23/23 02/24/23 20:59 22:56 06:13 WBC 12.7 H RBC 2.52 L Hgb 8.0 L Hct 23.8 L Neutrophils # APTT Sodium BUN Glucose POC Glucose (mg/dL) 157 H Total Protein Urine Glucose (UA) 3+ H Crossmatch 02/24/23 02/24/23 02/24/23 08:06 08:06 11:47 WBC RBC 2.51 L Hgb 7.7 L Hct 23.5 L Neutrophils # APTT Sodium BUN 32 H Glucose 144 H POC Glucose (mg/dL) 172 H Total Protein Urine Glucose (UA) Crossmatch Assessment and Plan Assessment: * Dizziness, likely due to hypovolemia from acute GI bleed. * Acute GI bleed with bright red blood per rectum * Anemia due to above * Diabetes * Hypertension * Hypothyroidism * Hyperlipidemia * Diabetic peripheral neuropathy * History of CVA in 2002, with residual right hemiparesis * Coronary artery disease Plan: * Patient's dizziness is likely due to acute GI bleed and hypovolemia. * Carotid Doppler revealed elevated peak systolic velocities of the left ICA with sonographic findings suggestive of at least 50-69% stenosis. Elevated peak systolic velocities of the right ICA with sonographic findings suggesting < 50% stenosis. Antegrade flow in both vertebral arteries. * Patient has been on Plavix since his CVA. Currently Plavix on hold because of GI bleed. Suggest resuming Plavix when medically cleared. * Check B12, folate, TSH * No other neurological workup indicated. * Neurology will sign off. Please reconsult neurology if any other concerns. Dr. Maxime Almeida starting neurology service in the morning. * Thank you for the consult. Addendum 03/01/2023: Patient's B12 is low 173 Folate > 20.0 TSH 5.22(0.46-4.68), with normal free T4 1.55 I called patient's home today 03/01/2023 at 5:15 PM. He apparently just saw his primary physician Dr. Guzman today. Recommended patient to start vitamin B12 between 7236-6520 g sublingual tablets daily, and have his primary physician recheck his B12 level on his next clinic visit. He verbalized what I mentioned and expressed understanding.
[2023-02-25 06:09] LABS: Glucose,Whole Blood 127 mg/dL (70-110)
[2023-02-25] MEDS: GLIMEPIRIDE 4 MG TAB PO SCH (06:13)
[2023-02-25] MEDS: INSULIN ASPART (NovoLOG) 100 UNIT/ML VIAL SQ SCH ×4 (06:13→20:33)
--- NOTE | 2023-02-25 06:20 | PN ---
PROGRESS NOTE DATE OF SERVICE: 02/24/2023 SUBJECTIVE: This is an 82-year-old gentleman who was admitted with GI bleed, had transfusion, hemoglobin 7.7. Endoscopy is planned by Surgery. OBJECTIVE: VITAL SIGNS: Pulse is 75, blood pressure 107/72, respirations 16. HEENT: Conjunctivae pale. CARDIOVASCULAR: S1, S2. RESPIRATORY: Clear to auscultation. ABDOMEN: Soft. NERVOUS SYSTEM: No focal deficits. LABORATORY DATA: Labs are reviewed. ASSESSMENT: 1. Acute lower gastrointestinal bleeding with blood loss anemia, symptomatic. 2. Dizziness, possibly transient ischemic attack. 3. Increased WBC. 4. Hyponatremia. 5. History of atrial fibrillation. 6. Diabetes mellitus, type 2. 7. Multiple medical issues. RECOMMENDATIONS: Recommend to continue current symptomatic treatment. Otherwise, I would recommend to monitor closely and follow with Cardiology, Surgery and Neurology. Repeat labs will be ordered. Prognosis is guarded. Further recommendations to follow. MMODL / IJN: [id number] /
[2023-02-25] MEDS: SODIUM CHLORIDE 0.9% 1,000 ML IV SCH ×2 (06:22→20:34)
[2023-02-25 07:17] LABS: Basophils % (A) 0 %; Eosinophils # (A) 0.2 k/uL (0-0.7); Eosinophils % (A) 2 %; HCT 27.4 % (39.0-53.0); Hypochromasia Slight; Lymphocytes # (A) 2.5 k/uL (1.0-4.8); Lymphocytes % (A) 23 %; MCH 30.7 pg (25.0-35.0); MCHC 32.9 g/dL (31.0-37.0); MCV 93.4 fL (80.0-100.0); Mean Platelet Volume 7.7; Monocytes # (A) 0.7 k/uL (0-1.0); Monocytes % (A) 6 %; Neutrophils # (A) 7.1 k/uL (1.3-7.7); Neutrophils % (A) 66 %; Platelet Count 299 k/uL (150-450); Poikilocytosis Slight; RBC 2.93 m/uL (4.30-5.90); RDW 14.3 % (11.5-15.5); WBC 10.7 k/uL (3.8-10.6)
[2023-02-25 07:27] LABS: African American GFR (CKD) >90 (>60 ml/min/1.73 sqM); Anion Gap 8 mmol/L; Blood Urea Nitrogen 16 mg/dL (9-20); Calcium 7.9 mg/dL (8.4-10.2); Carbon Dioxide 26 mmol/L (22-30); Chloride 106 mmol/L (98-107); Glucose 113 mg/dL (74-99); Non-African American GFR(CKD) 85 (>60 ml/min/1.73 sqM); Potassium 3.8 mmol/L (3.5-5.1); Sodium 140 mmol/L (137-145)
[2023-02-25 08:33] LABS: T4, Free (Free Thyroxine) 1.15 ng/dL (0.78-2.19)
[2023-02-25] MEDS ORDERED: LIDOCAINE 2% INJ 20 MG/ML (2 ML VIAL) ONE (10:00)
[2023-02-25] MEDS ORDERED: PROPOFOL 10 MG/ML 20 ML VIAL IV ONE (10:00)
[2023-02-25] MEDS ORDERED: IV FLUID CONTINUATION 800 ML IV ONE ×2 (10:04)
--- NOTE | 2023-02-25 11:21 | P.PN ---
Subjective Progress Note Date: 02/25/23 History of present illness: THis is an 82-year-old male patient of Dr. Begrer with a past medical history significant for coronary artery disease with a prior stenting with unknown details but most recent stenting was done in October of this year in the left circumflex by Dr. Winters, diabetes and hypertension and dyslipidemia. We requested to see the patient for consult for further evaluation of atrial fibrillation. Patient states he came into the hospital due to feeling dizzy and also had blood in his stool that was bright red which started yesterday morning. He denies any abdominal pain and no nausea. No chest pain, a little shortness of breath last week. He denies any palpitations. He states he has had black stools on 2 previous occasions and had stopped Plavix for 1 day with resolution of the rectal bleeding. When asked about atrial fibrillation. He states that he did have a monitor placed for 1 month and he was told he had an irregular beat but he has never heard the words atrial fibrillation and he has not been on anticoagulation. Reviewed previous hospitalizations and patient had no evidence of atrial fibrillation. EKG sinus rhythm, telemetry sinus rhythm Chest x-ray: No acute process. CAT scan of the brain: No acute intracranial hemorrhage or midline shift. Moderate diffuse cerebral atrophy and mild to moderate chronic small vessel ischemic change. Carotid ultrasound revealed increased velocities in the left proximal ICA at least 50-69% stenosis. Less than 50% stenosis on the right internal carotid artery WBC 9.7, hemoglobin 7.7, platelet count 307. Electrolytes normal. BUN 32 creatinine 0.77. Blood sugar 157. Liver function tests are normal. Magnesium 1.7. Troponin negative 1. Urinalysis 3+ glucose. Home cardiac medications: Aspirin 81 mg daily, atorvastatin 10 mg with breakfast, Plavix 75 mg daily, Cardizem XL R, 120 mg daily, levothyroxine 112 g daily Cardiac catheterization 10/08/2022 revealed mild disease in the left main. Left circumflex is a 40-50% lesion. OM1 small caliber vessel with mild diffuse disease. Circumflex and PDA branch of range of 70-80%. PDA branch of the left circumflex appears to have mild disease only. LAD reveals mild to moderate lesion of 40-50% range. Mild disease in the diagonal branch. Patient underwent successful stenting of the left circumflex. Echocardiogram 10/2022 revealed normal left ventricular dimension and systolic function. 02/25 Patient is seen today in follow-up. He remains in a sinus rhythm. Repeat EKG obtained which is a sinus rhythm. Heart rate has been in the 80s and 90s, blood pressure 131/67. Blood work today reveals hemoglobin of 9. BUN 16 creatinine 0.76. Patient was transfused 1 unit of packed RBCs yesterday afternoon. Echocardiogram has been obtained and report is pending. Physical examination: Gen: This is an 82-year-old male. He is resting in bed and appears to be comfortable and in no acute distress] VS: reviewed HEENT: Head is atraumatic, normocephalic. Pupils equal, round. Sclerae is anicteric. NECK: Supple. No JVD. . LUNGS: Clear to auscultation. No wheezes or rhonchi. No intercostal retractions. HEART: Regular rate and rhythm. No murmur. ABDOMEN: Soft No tenderness. EXTREMITIES: No pedal edema. No calf tenderness. NEUROLOGICAL: Patient is awake, alert and oriented x3. Assessment: No evidence of atrial fibrillation Anemia with rectal bleeding status post transfusion 1 unit of packed RBCs Coronary artery disease with previous stenting, most recent October 2022 of the left circumflex by Dr. Winters Hypertension Hyperlipidemia Diabetes Plan: Continue to hold aspirin and Plavix Continue patient's home cardiac medications Obtain 2-D echocardiogram report Further recommendations to follow based upon clinical course Nurse practitioner note has been reviewed, I agree with documented findings and plan of care. Patient was seen and examined. Objective - Vital Signs Vital signs: Vital Signs Temp 97.7 F 02/25/23 04:23 Pulse 94 02/25/23 04:23 Resp 16 02/25/23 04:23 BP 116/61 02/25/23 04:23 Pulse Ox 95 02/25/23 00:14 FiO2 Intake & Output 02/24/23 02/25/23 02/25/23 18:59 06:59 18:59 Intake Total 490 Output Total 1225 1850 Balance -735 -1850 Intake: Oral 180 Blood Product 310 Rc As-1 Unit 310 [id number] Output: Urine 1225 Stool 1850 Other: Voiding Method Urinal # Voids 1 2 - Labs CBC & Chem 7: 02/25/23 06:35 02/25/23 06:35 Labs: Abnormal Lab Results - Last 24 Hours (Table) 02/23/23 02/24/23 02/24/23 Range/Units 11:00 08:06 08:06 WBC (3.8-10.6) k/uL RBC 2.51 L (4.30-5.90) m/uL Hgb 7.7 L (13.0-17.5) gm/dL Hct 23.5 L (39.0-53.0) % BUN 32 H (9-20) mg/dL Glucose 144 H (74-99) mg/dL POC Glucose (mg/dL) (70-110) mg/dL Calcium (8.4-10.2) mg/dL Crossmatch See Detail 02/24/23 02/24/23 02/24/23 Range/Units 11:47 16:53 20:06 WBC (3.8-10.6) k/uL RBC (4.30-5.90) m/uL Hgb (13.0-17.5) gm/dL Hct (39.0-53.0) % BUN (9-20) mg/dL Glucose (74-99) mg/dL POC Glucose (mg/dL) 172 H 186 H 254 H (70-110) mg/dL Calcium (8.4-10.2) mg/dL Crossmatch 02/25/23 02/25/23 02/25/23 Range/Units 06:07 06:35 06:35 WBC 10.7 H (3.8-10.6) k/uL RBC 2.93 L (4.30-5.90) m/uL Hgb 9.0 L (13.0-17.5) gm/dL Hct 27.4 L (39.0-53.0) % BUN (9-20) mg/dL Glucose 113 H (74-99) mg/dL POC Glucose (mg/dL) 127 H (70-110) mg/dL Calcium 7.9 L (8.4-10.2) mg/dL Crossmatch
[2023-02-25 11:33] LABS: Glucose,Whole Blood 147 mg/dL (70-110)
--- NOTE | 2023-02-25 11:40 | P.PCN ---
Date of Procedure: 02/25/23 Procedure(s) Performed: PREOPERATIVE DIAGNOSIS: GI bleed POSTOPERATIVE DIAGNOSIS: Duodenal ulcerations, gastritis with erosions, small hiatal hernia, diverticulosis PROCEDURE: 1. EGD with biopsy 2. Colonoscopy ANESTHESIA: MAC SURGEON: Ramin Paulson M.D. SPECIMENS: Antrum ENDOSCOPIC PROCEDURE: The patient was on the endoscopy table in the left decubitus position. The Olympus gastroscope was inserted into the oropharynx and passed under direct visualization to the region of the third portion of the duodenum. From that point the scope was slowly withdrawn inspecting all surfaces carefully. The duodenum had inflammatory changes present with multiple superficial appearing ulcers noted. There was no stigmata of recent bleeding. There was no visible vessel or adherent clot. The pylorus was widely patent. The stomach was inspected. The patient had gastritis with superficial erosions present. Biopsies were taken of the antrum. Retroflexion revealed a small 1 cm hiatal hernia. The remainder the esophagus appear normal. The patient was kept on the endoscopy table in the left decubitus position. The Olympus colonoscope was inserted into the anus and passed under direct visualization to the base of the cecum. The appendiceal orifice was visualized. From that point the scope was slowly withdrawn inspecting all surfaces carefully. There were no neoplastic inflammatory or polypoid lesions throughout the cecum, ascending, transverse, descending, sigmoid and rectum. There was scattered diverticulosis noted throughout the colon. Digital rectal examination was normal. The patient was taken to the recovery room in stable condition per anesthesia guidelines. RECOMMENDATIONS: Resume diet. Continue antiacid therapy. Continue to hold anticoagulation. Would recommend incineration for repeat EGD in 3 months to confirm resolution. Duodenal ulcers are the likely source of anemia and recent bleeding.
[2023-02-25] MEDS: PANTOPRAZOLE 40 MG/10 ML VIAL IVP SCH ×2 (12:41→20:34)
[2023-02-25] MEDS: ATORVASTATIN 10 MG TAB PO SCH (12:43)
[2023-02-25] MEDS: DILTIAZEM CD 120 MG CAP.ER.24H PO SCH (12:43)
[2023-02-25] MEDS: CALCIUM CARBONATE 500 MG CHEWABLE PO SCH (12:43)
[2023-02-25] MEDS: LEVOTHYROXINE 112 MCG TAB PO SCH (12:43)
[2023-02-25] MEDS: MULTIVITAMINS, THERA 1 EACH TAB PO SCH (12:43)
--- NOTE | 2023-02-25 13:15 | CA ---
Transthoracic Echo Report Name: Joao Mcknight Age: 82 Gender: M : 1940 Exam Date: 02/25/2023 07:57 Exam Location: [facility] Ht (in): 67 Wt (lb): 170 Ordering Physician: Michelle Recinos MD Attending/Referring Phys: Inspector Balance Truing Vianey López RDCS Procedure CPT: Indications: physician order Cardiac Hx: Technical Quality: Good Contrast 1: Total Dose (mL): Contrast 2: Total Dose (mL): MEASUREMENTS (Male / Female) Normal Values 2D ECHO LV Diastolic Diameter PLAX 3.5 cm 4.2 - 5.9 / 3.9 - 5.3 cm LV Systolic Diameter PLAX 2.9 cm IVS Diastolic Thickness 1.6 cm 0.6 - 1.0 / 0.6 - 0.9 cm LVPW Diastolic Thickness 1.7 cm 0.6 - 1.0 / 0.6 - 0.9 cm LV Relative Wall Thickness 0.9 RV Internal Dim ED PLAX 3.1 cm LA Systolic Diameter LX 3.2 cm 3.0 - 4.0 / 2.7 - 3.8 cm LV Diastolic Volume MOD 4C 67.6 cm??? LV Systolic Volume MOD 4C 38.2 cm??? LV Ejection Fraction MOD 4C 43.5 % LV Diastolic Length 4C 7.8 cm LV Systolic Length 4C 6.1 cm LV Diastolic Volume MOD 2C 64.9 cm??? LV Systolic Volume MOD 2C 38.9 cm??? LV Ejection Fraction MOD 2C 40.0 % LV Diastolic Length 2C 7.9 cm LV Systolic Length 2C 6.6 cm LA Volume 40.9 cm??? 18 - 58 / 22 - 52 cm??? M-MODE Aortic Root Diameter MM 3.4 cm MV E Point Septal Separation 1.2 cm AV Cusp Separation MM 2.3 cm DOPPLER AV Peak Velocity 118.0 cm/s AV Peak Gradient 5.6 mmHg MV E' Velocity 6.4 cm/s TR Peak Velocity 289.2 cm/s TR Peak Gradient 33.4 mmHg Right Ventricular Systolic Press 37.3 mmHg FINDINGS Left Ventricle Left ventricular ejection fraction is estimated at 45 %. Small left ventricular cavity. Moderately increased septal wall thickness. Right Ventricle Normal right ventricular size and function. Mild pulmonary hypertension. Right Atrium Normal right atrial size. Left Atrium Normal left atrial size. Mitral Valve Structurally normal mitral valve. No mitral stenosis, regurgitation or prolapse. Aortic Valve Trileaflet aortic valve. No aortic valve stenosis or regurgitation. Tricuspid Valve Structurally normal tricuspid valve. Mild tricuspid regurgitation. Pulmonic Valve Structurally normal pulmonic valve. No pulmonic regurgitation. Pericardium Normal pericardium. No pericardial effusion. Aorta Normal size aortic root and proximal ascending aorta. CONCLUSIONS Mildly reduced LV systolic function Previewed by: Dr. Ry Suazo MD (Electronically Signed) Final Date: 25 Feb 2023 13:14
[2023-02-25 16:33] LABS: Glucose,Whole Blood 312 mg/dL (70-110)
[2023-02-25 20:03] LABS: Glucose,Whole Blood 215 mg/dL (70-110)
--- NOTE | 2023-02-25 22:31 | P.PN ---
Subjective Progress Note Date: 02/25/23 Principal diagnosis: GI bleed His Hgb is up to 9 today from 7.4 yesterday after transfusion of 1 U PRBC. He denies any bloody stool. Pt s/p EGD showing gastritis as well as duodenal ulcer Objective - Vital Signs Vital signs: Vital Signs Temp 97.9 F 02/25/23 20:00 Pulse 76 02/25/23 20:00 Resp 16 02/25/23 20:00 BP 98/49 02/25/23 20:00 Pulse Ox 96 02/25/23 20:00 FiO2 Intake & Output 02/25/23 02/25/23 02/26/23 06:59 18:59 06:59 Intake Total 760 Output Total 1850 1200 600 Balance -1850 -440 -600 Intake: IV 400 Oral 360 Output: Urine 950 600 Stool 1850 250 Other: Voiding Method Urinal Urinal # Voids 2 1 2 - Exam Gen: elderly male in NAD CV: RRR Lungs: Normal effort, clear throughout Abd: soft, tender epigastric - Labs CBC & Chem 7: 02/25/23 06:35 02/25/23 06:35 Labs: Abnormal Lab Results - Last 24 Hours (Table) 02/24/23 02/25/23 02/25/23 Range/Units 08:06 06:07 06:35 WBC (3.8-10.6) k/uL RBC (4.30-5.90) m/uL Hgb (13.0-17.5) gm/dL Hct (39.0-53.0) % Glucose (74-99) mg/dL POC Glucose (mg/dL) 127 H (70-110) mg/dL Hemoglobin A1c 6.1 H (0.0-6.0) % Calcium (8.4-10.2) mg/dL Vitamin B12 173.0 L (200.0-944.0) pg/mL TSH (0.465-4.680) mIU/L 02/25/23 02/25/23 02/25/23 Range/Units 06:35 06:35 11:31 WBC 10.7 H (3.8-10.6) k/uL RBC 2.93 L (4.30-5.90) m/uL Hgb 9.0 L (13.0-17.5) gm/dL Hct 27.4 L (39.0-53.0) % Glucose 113 H (74-99) mg/dL POC Glucose (mg/dL) 147 H (70-110) mg/dL Hemoglobin A1c (0.0-6.0) % Calcium 7.9 L (8.4-10.2) mg/dL Vitamin B12 (200.0-944.0) pg/mL TSH 5.220 H (0.465-4.680) mIU/L 02/25/23 02/25/23 Range/Units 16:32 20:02 WBC (3.8-10.6) k/uL RBC (4.30-5.90) m/uL Hgb (13.0-17.5) gm/dL Hct (39.0-53.0) % Glucose (74-99) mg/dL POC Glucose (mg/dL) 312 H 215 H (70-110) mg/dL Hemoglobin A1c (0.0-6.0) % Calcium (8.4-10.2) mg/dL Vitamin B12 (200.0-944.0) pg/mL TSH (0.465-4.680) mIU/L Assessment and Plan Plan: Continue with IV protonix, carafate. Monitor Hgb, hold AC. Surgery following
[2023-02-26 06:06] LABS: Glucose,Whole Blood 130 mg/dL (70-110)
[2023-02-26] MEDS: INSULIN ASPART (NovoLOG) 100 UNIT/ML VIAL SQ SCH ×4 (06:16→20:47)
[2023-02-26] MEDS: GLIMEPIRIDE 4 MG TAB PO SCH (06:21)
[2023-02-26] MEDS: CALCIUM CARBONATE 500 MG CHEWABLE PO SCH (06:21)
[2023-02-26] MEDS: MULTIVITAMINS, THERA 1 EACH TAB PO SCH (06:22)
[2023-02-26] MEDS: DILTIAZEM CD 120 MG CAP.ER.24H PO SCH (06:22)
[2023-02-26] MEDS: ATORVASTATIN 10 MG TAB PO SCH (06:22)
[2023-02-26] MEDS: LEVOTHYROXINE 112 MCG TAB PO SCH (06:22)
[2023-02-26 07:29] LABS: Basophils # (A) 0.1 k/uL (0-0.2); Basophils % (A) 1 %; Eosinophils # (A) 0.5 k/uL (0-0.7); Eosinophils % (A) 5 %; HGB 9.1 gm/dL (13.0-17.5); Hypochromasia Slight; Lymphocytes # (A) 2.2 k/uL (1.0-4.8); Lymphocytes % (A) 19 %; MCH 31.7 pg (25.0-35.0); MCHC 33.5 g/dL (31.0-37.0); MCV 94.6 fL (80.0-100.0); Mean Platelet Volume 7.5; Monocytes # (A) 0.7 k/uL (0-1.0); Monocytes % (A) 6 %; Neutrophils # (A) 7.7 k/uL (1.3-7.7); Neutrophils % (A) 68 %; Platelet Count 303 k/uL (150-450); Poikilocytosis Slight; RBC 2.85 m/uL (4.30-5.90); RDW 14.2 % (11.5-15.5); WBC 11.4 k/uL (3.8-10.6)
[2023-02-26] MEDS: PANTOPRAZOLE 40 MG/10 ML VIAL IVP SCH ×2 (09:09→20:48)
--- NOTE | 2023-02-26 10:25 | P.PN ---
Subjective Progress Note Date: 02/26/23 History of present illness: THis is an 82-year-old male patient of Dr. Berger with a past medical history significant for coronary artery disease with a prior stenting with unknown details but most recent stenting was done in October of this year in the left circumflex by Dr. Winters, diabetes and hypertension and dyslipidemia. We requested to see the patient for consult for further evaluation of atrial fibrillation. Patient states he came into the hospital due to feeling dizzy and also had blood in his stool that was bright red which started yesterday morning. He denies any abdominal pain and no nausea. No chest pain, a little shortness of breath last week. He denies any palpitations. He states he has had black stools on 2 previous occasions and had stopped Plavix for 1 day with resolution of the rectal bleeding. When asked about atrial fibrillation. He states that he did have a monitor placed for 1 month and he was told he had an irregular beat but he has never heard the words atrial fibrillation and he has not been on anticoagulation. Reviewed previous hospitalizations and patient had no evidence of atrial fibrillation. EKG sinus rhythm, telemetry sinus rhythm Chest x-ray: No acute process. CAT scan of the brain: No acute intracranial hemorrhage or midline shift. Moderate diffuse cerebral atrophy and mild to moderate chronic small vessel ischemic change. Carotid ultrasound revealed increased velocities in the left proximal ICA at least 50-69% stenosis. Less than 50% stenosis on the right internal carotid artery WBC 9.7, hemoglobin 7.7, platelet count 307. Electrolytes normal. BUN 32 creatinine 0.77. Blood sugar 157. Liver function tests are normal. Magnesium 1.7. Troponin negative 1. Urinalysis 3+ glucose. Home cardiac medications: Aspirin 81 mg daily, atorvastatin 10 mg with breakfast, Plavix 75 mg daily, Cardizem XL R, 120 mg daily, levothyroxine 112 g daily Cardiac catheterization 10/08/2022 revealed mild disease in the left main. Left circumflex is a 40-50% lesion. OM1 small caliber vessel with mild diffuse disease. Circumflex and PDA branch of range of 70-80%. PDA branch of the left circumflex appears to have mild disease only. LAD reveals mild to moderate lesion of 40-50% range. Mild disease in the diagonal branch. Patient underwent successful stenting of the left circumflex. Echocardiogram 10/2022 revealed normal left ventricular dimension and systolic function. 02/25 Patient is seen today in follow-up. He remains in a sinus rhythm. Repeat EKG obtained which is a sinus rhythm. Heart rate has been in the 80s and 90s, blood pressure 131/67. Blood work today reveals hemoglobin of 9. BUN 16 creatinine 0.76. Patient was transfused 1 unit of packed RBCs yesterday afternoon. Echocardiogram has been obtained and report is pending. 02/26 Yesterday, patient underwent EGD finding duodenal ulcerations, gastritis and erosions. Patient states he has had no more GI bleeding. He has been off Plavix and aspirin. Blood pressure 92/59, heart rate in the 60s and 70s. Hemoglobin is 9.1. Echocardiogram reveals EF of 45%. Physical examination: Gen: This is an 82-year-old male. He is resting in bed and appears to be comfortable and in no acute distress] VS: reviewed HEENT: Head is atraumatic, normocephalic. Pupils equal, round. Sclerae is anicteric. LUNGS: Clear to auscultation. No wheezes or rhonchi. No intercostal retractions. HEART: Regular rate and rhythm. No murmur. ABDOMEN: Soft No tenderness. EXTREMITIES: No pedal edema. No calf tenderness. NEUROLOGICAL: Patient is awake, alert and oriented x3. Assessment: No evidence of atrial fibrillation Anemia with rectal bleeding status post transfusion 1 unit of packed RBCs Coronary artery disease with previous stenting, most recent October 2022 of the left circumflex by Dr. Winters Hypertension Hyperlipidemia Diabetes Plan: Continue to hold aspirin and Plavix Continue patient's home cardiac medications Further recommendations to follow based upon clinical course Nurse practitioner note has been reviewed, I agree with documented findings and plan of care. Patient was seen and examined. Objective - Vital Signs Vital signs: Vital Signs Temp 98.2 F 02/26/23 03:31 Pulse 67 02/26/23 03:31 Resp 15 02/26/23 03:31 BP 92/59 02/26/23 03:31 Pulse Ox 93 L 02/26/23 03:31 FiO2 Intake & Output 02/25/23 02/26/23 02/26/23 18:59 06:59 18:59 Intake Total 760 900 Output Total 1200 850 Balance -440 50 Intake: IV 400 Intake, IV Titration 900 Amount Sodium Chloride 0.9% 1, 900 000 ml @ 75 mls/hr IV . [id number] [facility] Rx#:[id number] Oral 360 Output: Urine 950 850 Stool 250 Other: Voiding Method Urinal Urinal # Voids 1 1 - Labs CBC & Chem 7: 02/26/23 07:03 02/25/23 06:35 Labs: Abnormal Lab Results - Last 24 Hours (Table) 02/24/23 02/25/23 02/25/23 Range/Units 08:06 06:35 06:35 WBC 10.7 H (3.8-10.6) k/uL RBC 2.93 L (4.30-5.90) m/uL Hgb 9.0 L (13.0-17.5) gm/dL Hct 27.4 L (39.0-53.0) % Glucose (74-99) mg/dL POC Glucose (mg/dL) (70-110) mg/dL Hemoglobin A1c 6.1 H (0.0-6.0) % Calcium (8.4-10.2) mg/dL Vitamin B12 173.0 L (200.0-944.0) pg/mL TSH (0.465-4.680) mIU/L 02/25/23 02/25/23 02/25/23 Range/Units 06:35 11:31 16:32 WBC (3.8-10.6) k/uL RBC (4.30-5.90) m/uL Hgb (13.0-17.5) gm/dL Hct (39.0-53.0) % Glucose 113 H (74-99) mg/dL POC Glucose (mg/dL) 147 H 312 H (70-110) mg/dL Hemoglobin A1c (0.0-6.0) % Calcium 7.9 L (8.4-10.2) mg/dL Vitamin B12 (200.0-944.0) pg/mL TSH 5.220 H (0.465-4.680) mIU/L 02/25/23 02/26/23 Range/Units 20:02 06:04 WBC (3.8-10.6) k/uL RBC (4.30-5.90) m/uL Hgb (13.0-17.5) gm/dL Hct (39.0-53.0) % Glucose (74-99) mg/dL POC Glucose (mg/dL) 215 H 130 H (70-110) mg/dL Hemoglobin A1c (0.0-6.0) % Calcium (8.4-10.2) mg/dL Vitamin B12 (200.0-944.0) pg/mL TSH (0.465-4.680) mIU/L
[2023-02-26 11:46] LABS: Glucose,Whole Blood 134 mg/dL (70-110)
--- NOTE | 2023-02-26 11:46 | P.PN ---
Subjective Progress Note Date: 02/26/23 CHIEF COMPLAINT: GI bleed HISTORY OF PRESENT ILLNESS: Patient is status post EGD and colonoscopy which de monstrated duodenal ulcerations, gastritis with erosions, small hiatal hernia and diverticulosis. Patient denies any abdominal pain. He reports no bowel movement. He is not passing any blood. Denies any nausea vomiting. He did tolerate regular diet. Hemoglobin stayed stable at 9.1. Aspirin Plavix remain on hold PHYSICAL EXAM: VITAL SIGNS: Reviewed. GENERAL: Well-developed in no acute distress. HEENT: No sclera icterus. Extraocular movements grossly intact. Moist buccal mucosa. Head is atraumatic, normocephalic. ABDOMEN: Soft. Nondistended. Nontender. NEUROLOGIC: Alert and oriented. Cranial nerves II through XII grossly intact. ASSESSMENT: 1. Anemia with acute GI bleed 2. Status post EGD and colonoscopy which demonstrated duodenal ulcerations, gastritis with erosions, small hiatal hernia and diverticulosis. 12 ulcers are likely patient's source of anemia and recent bleeding PLAN: -Continue to hold anticoagulation -Continue PPI -Recommend to repeat EGD in 3 months -Continue regular diet Physician Anesthesia Associate note has been reviewed by physician. Signing provider agrees with the documented findings, assessment, and plan of care. I have personally seen and examined the patient, reviewed the HARDWARE TEST ENGINEER /PAs history, exam and MDM and agree with the assessment and plan as written. Based on total visit time, I have performed more than 50% of the visit. As above: Patient doing well today. Tolerating diet. Hemoglobin is stable. May discharge from our point of view. Follow-up as outpatient. Will need short-term follow-up EGD. Continue to hold anticoagulation. Objective - Vital Signs Vital signs: Vital Signs Temp 98.1 F 02/26/23 08:00 Pulse 72 02/26/23 08:00 Resp 18 02/26/23 08:00 BP 105/70 02/26/23 08:00 Pulse Ox 94 L 02/26/23 08:00 FiO2 Intake & Output 02/25/23 02/26/23 02/26/23 18:59 06:59 18:59 Intake Total 760 900 180 Output Total 1200 850 Balance -440 50 180 Intake: IV 400 Intake, IV Titration 900 Amount Sodium Chloride 0.9% 1, 900 000 ml @ 75 mls/hr IV . [id number] [facility] Rx#:[id number] Oral 360 180 Output: Urine 950 850 Stool 250 Other: Voiding Method Urinal Urinal Urinal # Voids 1 1 - Labs CBC & Chem 7: 02/26/23 07:03 02/25/23 06:35 Labs: Abnormal Lab Results - Last 24 Hours (Table) 02/25/23 02/25/23 02/26/23 Range/Units 16:32 20:02 06:04 WBC (3.8-10.6) k/uL RBC (4.30-5.90) m/uL Hgb (13.0-17.5) gm/dL Hct (39.0-53.0) % POC Glucose (mg/dL) 312 H 215 H 130 H (70-110) mg/dL 02/26/23 Range/Units 07:03 WBC 11.4 H (3.8-10.6) k/uL RBC 2.85 L (4.30-5.90) m/uL Hgb 9.1 L (13.0-17.5) gm/dL Hct 27.0 L (39.0-53.0) % POC Glucose (mg/dL) (70-110) mg/dL
[2023-02-26 16:23] LABS: Glucose,Whole Blood 333 mg/dL (70-110)
[2023-02-26 20:26] LABS: Glucose,Whole Blood 175 mg/dL (70-110)
--- NOTE | 2023-02-26 22:45 | P.PN ---
Subjective Progress Note Date: 02/26/23 He is feeling well today, denies abdominal pain, dizziness, weakness. hgb stable at 9.1. Objective - Vital Signs Vital signs: Vital Signs Temp 98.4 F 02/26/23 20:00 Pulse 77 02/26/23 20:00 Resp 16 02/26/23 20:00 BP 116/59 02/26/23 20:00 Pulse Ox 91 L 02/26/23 20:00 FiO2 Intake & Output 02/26/23 02/26/23 02/27/23 06:59 18:59 06:59 Intake Total 900 540 Output Total 850 Balance 50 540 Intake: Intake, IV Titration 900 Amount Sodium Chloride 0.9% 1, 900 000 ml @ 75 mls/hr IV . [id number] [facility] Rx#:[id number] Oral 540 Output: Urine 850 Other: Voiding Method Urinal Urinal # Voids 1 - Exam Gen: elderly male in NAD CV: RRR Lungs: Normal effort, clear throughout Abd: soft, nontender - Labs CBC & Chem 7: 02/26/23 07:03 02/25/23 06:35 Labs: Abnormal Lab Results - Last 24 Hours (Table) 02/26/23 02/26/23 02/26/23 Range/Units 06:04 07:03 11:44 WBC 11.4 H (3.8-10.6) k/uL RBC 2.85 L (4.30-5.90) m/uL Hgb 9.1 L (13.0-17.5) gm/dL Hct 27.0 L (39.0-53.0) % POC Glucose (mg/dL) 130 H 134 H (70-110) mg/dL 02/26/23 02/26/23 Range/Units 16:22 20:24 WBC (3.8-10.6) k/uL RBC (4.30-5.90) m/uL Hgb (13.0-17.5) gm/dL Hct (39.0-53.0) % POC Glucose (mg/dL) 333 H 175 H (70-110) mg/dL Assessment and Plan Plan: Continue with IV protonix, carafate. Hold plavix and ASA. Recheck hgb, discharge planning
[2023-02-27 05:49] LABS: Glucose,Whole Blood 131 mg/dL (70-110)
[2023-02-27] MEDS: INSULIN ASPART (NovoLOG) 100 UNIT/ML VIAL SQ SCH ×2 (06:39→12:01)
[2023-02-27] MEDS: LEVOTHYROXINE 112 MCG TAB PO SCH (06:42)
[2023-02-27] MEDS: GLIMEPIRIDE 4 MG TAB PO SCH (06:42)
[2023-02-27] MEDS: MULTIVITAMINS, THERA 1 EACH TAB PO SCH (06:42)
[2023-02-27] MEDS: CALCIUM CARBONATE 500 MG CHEWABLE PO SCH (06:42)
[2023-02-27] MEDS: DILTIAZEM CD 120 MG CAP.ER.24H PO SCH (06:42)
[2023-02-27] MEDS: ATORVASTATIN 10 MG TAB PO SCH (06:42)
[2023-02-27] MEDS: PANTOPRAZOLE 40 MG/10 ML VIAL IVP SCH (08:17)
[2023-02-27 08:21] VITALS: RESP 16
[2023-02-27 09:29] LABS: Basophils % (A) 0 %; Eosinophils # (A) 0.4 k/uL (0-0.7); Eosinophils % (A) 5 %; HCT 28.5 % (39.0-53.0); HGB 9.3 gm/dL (13.0-17.5); Hypochromasia Slight; Lymphocytes % (A) 22 %; MCH 30.8 pg (25.0-35.0); MCHC 32.6 g/dL (31.0-37.0); MCV 94.7 fL (80.0-100.0); Mean Platelet Volume 7.8; Monocytes # (A) 0.4 k/uL (0-1.0); Monocytes % (A) 5 %; Neutrophils # (A) 5.9 k/uL (1.3-7.7); Neutrophils % (A) 66 %; Platelet Count 318 k/uL (150-450); Poikilocytosis Slight; RBC 3.01 m/uL (4.30-5.90); RDW 14.5 % (11.5-15.5); WBC 8.9 k/uL (3.8-10.6)
--- NOTE | 2023-02-27 10:14 | P.PN ---
Subjective Progress Note Date: 02/27/23 CHIEF COMPLAINT: GI bleed HISTORY OF PRESENT ILLNESS: Patient is status post EGD and colonoscopy which de monstrated duodenal ulcerations, gastritis with erosions, small hiatal hernia and diverticulosis. Patient denies any abdominal pain. He denies any blood in his stool. He is tolerating diet. He is scheduled for discharge today. Hemoglobin stable at 9.1 PHYSICAL EXAM: VITAL SIGNS: Reviewed. GENERAL: Well-developed in no acute distress. HEENT: No sclera icterus. Extraocular movements grossly intact. Moist buccal mucosa. Head is atraumatic, normocephalic. ABDOMEN: Soft. Nondistended. Nontender. NEUROLOGIC: Alert and oriented. Cranial nerves II through XII grossly intact. ASSESSMENT: 1. Anemia with acute GI bleed 2. Status post EGD and colonoscopy which demonstrated duodenal ulcerations, gastritis with erosions, small hiatal hernia and diverticulosis. Duodenal ulcers are likely patient's source of anemia and recent bleeding PLAN: -Continue to hold anticoagulation -Continue PPI -Recommend to repeat EGD in 3 months -Continue regular diet -Patient can be discharged from surgical standpoint Physician General Labor note has been reviewed by physician. Signing provider agrees with the documented findings, assessment, and plan of care. Objective - Vital Signs Vital signs: Vital Signs Temp 97.7 F 02/27/23 08:15 Pulse 89 02/27/23 08:15 Resp 16 02/27/23 08:15 BP 104/63 02/27/23 08:15 Pulse Ox 94 L 02/27/23 08:17 FiO2 Intake & Output 02/26/23 02/27/23 02/27/23 18:59 06:59 18:59 Intake Total 540 130 Balance 540 130 Intake: IV 20 Invasive Line 1 10 Invasive Line 2 10 Oral 540 110 Other: Voiding Method Urinal Toilet Toilet # Voids 1 - Labs CBC & Chem 7: 02/27/23 09:11 02/25/23 06:35 Labs: Abnormal Lab Results - Last 24 Hours (Table) 02/26/23 02/26/23 02/26/23 Range/Units 11:44 16:22 20:24 RBC (4.30-5.90) m/uL Hgb (13.0-17.5) gm/dL Hct (39.0-53.0) % POC Glucose (mg/dL) 134 H 333 H 175 H (70-110) mg/dL 02/27/23 02/27/23 Range/Units 05:48 09:11 RBC 3.01 L (4.30-5.90) m/uL Hgb 9.3 L (13.0-17.5) gm/dL Hct 28.5 L (39.0-53.0) % POC Glucose (mg/dL) 131 H (70-110) mg/dL
[2023-02-27 11:36] LABS: Glucose,Whole Blood 214 mg/dL (70-110)
[2023-02-27 12:05] VITALS: BP 115/73; PULSE 74; TEMP 97.6
== END 2023-02-27 13:34 | disposition home or self-care (01) | DRG 378 ==
LOC: EC 10:13 → 4SSUR 13:01 → 3SCARD 18:27
PROVIDERS: ADMIT Family Medicine; ATTEND Family Medicine
PROC: 30233N1 Transfusion of Nonautologous Red Blood Cells into Peripheral Vein, Percutaneous Approach (ICD-10-PCS; 2023-02-24)
PROC: 0DB78ZX Excision of Stomach, Pylorus, Via Natural or Artificial Opening Endoscopic, Diagnostic (ICD-10-PCS; principal; 2023-02-25 07:30)
PROC: 0DJD8ZZ Inspection of Lower Intestinal Tract, Via Natural or Artificial Opening Endoscopic (ICD-10-PCS; principal; 2023-02-25 07:30)
DX: K26.4 Chronic or unspecified duodenal ulcer with hemorrhage (principal); E87.1 Hypo-osmolality and hyponatremia; I69.351 Hemiplegia and hemiparesis following cerebral infarction affecting right dominant side; R42 Dizziness and giddiness; D50.0 Iron deficiency anemia secondary to blood loss (chronic); K44.9 Diaphragmatic hernia without obstruction or gangrene; E03.9 Hypothyroidism, unspecified; E11.42 Type 2 diabetes mellitus with diabetic polyneuropathy; E78.5 Hyperlipidemia, unspecified; E86.1 Hypovolemia; F17.210 Nicotine dependence, cigarettes, uncomplicated; I10 Essential (primary) hypertension; I25.10 Atherosclerotic heart disease of native coronary artery without angina pectoris; I48.91 Unspecified atrial fibrillation; I49.1 Atrial premature depolarization; K57.30 Diverticulosis of large intestine without perforation or abscess without bleeding; Z95.5 Presence of coronary angioplasty implant and graft; Z82.49 Family history of ischemic heart disease and other diseases of the circulatory system; Z82.0 Family history of epilepsy and other diseases of the nervous system; Z79.890 Hormone replacement therapy; Z79.84 Long term (current) use of oral hypoglycemic drugs; Z79.82 Long term (current) use of aspirin; Z79.02 Long term (current) use of antithrombotics/antiplatelets
CPT/HCPCS: 36415; 43239; 45378; 70450; 71046; 80048; 80053; 81003; 82607; 82746; 83036; 83735; 84439; 84443; 84484; 85025; 85027; 85610; 85730; 86850; 86900; 86901; 86920; 88305; 93005; 93306; 93880; 94760